=== PATIENT | female | born 1980 | race Caucasian/White ===

== ENCOUNTER 2019-12-18 15:27 | Outpatient (CLI) | payer OTHER, SELFPAY ==
--- NOTE | ~2019-12-18 | MM_ITS ---
EXAMINATION: MM scrn marlene implant BI w radha HISTORY: Screening mammogram TECHNIQUE: Craniocaudal and mediolateral oblique 3-D tomosynthesis images with implant displacement a nd synthetic 2-D images were generated. Craniocaudal and mediolateral oblique views of the breasts wi thout implant displacement were obtained using full field digital mammography. CAD analysis was submi tted and interpreted. COMPARISON: No prior mammogram is available for comparison at this institution. BREAST PARENCHYMAL COMPOSITION: There are scattered areas of fibroglandular density. FINDINGS: Status post bilateral augmentation mammoplasty. There is no evidence of suspicious mass, ca lcification, or architectural distortion to suggest malignancy in either breast. There has been no bauman spicious interval change. IMPRESSION: 1. No mammographic evidence of malignancy. 2. Recommend routine screening mammography in one year. BI-RADS Category 1: Negative Reviewed, dictated and finalized at location A. PENDENT CONSULTANT
== END 2019-12-18 15:28 | disposition home or self-care (01) ==
LOC: ANHIMG 15:35
PROVIDERS: PCP Internal Medicine; Visit Provider Obstetrics & Gynecology Gynecology
DX: Z12.31 Encounter for screening mammogram for malignant neoplasm of breast (principal)
CPT/HCPCS: 77063; 77067

== ENCOUNTER 2019-12-20 17:55 | Emergency (ER) | payer OTHER, SELFPAY ==
--- NOTE | ~2019-12-20 | XR_ITS ---
EXAMINATION: XR chest 2V EXAM DATE: 12/20/2019 19:23 INDICATION: Mid chest pain. TECHNIQUE: Frontal and lateral projections of the chest obtained and reviewed. Comparison is made to prior examination from 06/26/2017. FINDINGS: The lungs are clear. There are no pleural effusions. The cardiomediastinal silhouette is within normal limits. There is no pneumothorax suspected. The bones and soft tissues are unremarkab le. IMPRESSION: Normal chest x-ray exam. Reviewed, dictated and finalized at location A. E GYNECOLOGY IMPRESSION: Normal chest x-ray exam.
--- NOTE | 2019-12-20 18:21 | ECG_ITS ---
SINUS TACHYCARDIA LOW QRS VOLTAGE IN PRECORDIAL LEADS BORDERLINE ST-T WAVE ABNORMALITY- INF/LAT LEADS BASELINE ARTIFACT- I, II, III, AVR, AVL, AVF ABNORMAL ECG Electronically Signed On 12-21-2019 8:19:00 CDT by Gerard Reed D.O. NO PREVIOUS ECG AVAILABLE FOR COMPARISON [facility]
--- NOTE | 2019-12-20 18:24 | ED.CHESTPAIN ---
HPI - Chest Pain General Chief Complaint: Chest Pain Stated Complaint: chest pain Time Seen by Provider: 12/20/19 18:20 Source: patient Mode of arrival: ambulatory Limitations: no limitations History of Present Illness HPI narrative: The pt is a 39 y/o female who presents to the ED c/o left-sided CP onset today. Pt states that the pain began this morning when she awoke. She states that she was driving and noticed the pain began to radiate to the LUE, so she came here. She notes that her pain is relieved via laying down. Pt denies SOB. 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 Stephens. She notes that she was prescribed Cardizem following a back surgery due to tachycardia. MD complaint: chest pain Pain location: left chest Pain radiation: left arm Relieving factors: other (Laying down) Associated symptoms: other (None) Related Data Home Medications Medication Instructions Recorded Confirmed budesonide-formoterol [Symbicort] 2 puff INHALATION Q12H 12/20/19 diltiazem HCl 120 mg PO DAILY 12/20/19 Allergies Allergy/AdvReac Type Severity Reaction Status Date / Time codeine Allergy Unknown Unknown Verified 12/20/19 19:14 Review of Systems Review of Systems: All systems reviewed & are unremarkable except as noted in HPI and below Cardiovascular: Cardiovascular: Reports chest pain (Left-sided, radiates to the LUE) Respiratory: Respiratory: Denies dyspnea PMFSH Past Medical History Medical History (Updated 12/20/19 @ 22:36 by Alejandor Le DO) Asthma MVP (mitral valve prolapse) Tachycardia Urinary tract infection Surgical History Surgical History (Updated 12/20/19 @ 18:43 by Atul Castle) History of back surgery Family History Family History (Updated 08/22/18 @ 15:28 by DOCTOR UNKNOWN) Other Asthma Family history of cardiovascular disease Family history of malignant neoplasm Social History Social History (Updated 12/20/19 @ 18:44 by Atul Castle) Smoking status: Former smoker Smoking end date: 10/15/11 Alcohol intake: current Gender identity (if verbalized by the patient): Female Comments PCP: Dr. Chavarria Financial Planning Consultant: Dr. Stephens Exam Narrative: Exam Narrative: APPEARANCE: No acute distress, nontoxic, resting in bed EYES: EOMI HEENT: Normocephalic, atraumatic, OMM RESPIRATORY: No respiratory distress Clear to auscultation bilaterally with no rhonchi wheezing or rales. CARDIOVASCULAR: Regular rate and rhythm without murmurs rubs or gallops. Chest: Tender palpation over the left anterior chest just to the left of the sternum and region of ribs 6 and 7 with point tenderness present, pain increased with deep inspiration and fly motion of the chest ABDOMINAL: Soft, nontender, nondistended, no rebound or guarding MUSCULOSKELETAl: Moves all extremities. No clubbing, cyanosis or edema. NEURO: Awake and alert. Following commands, speech normal, no focal deficits SKIN:: Warm, dry. No rashes lesions or abrasions PSYCHIATRIC: Normal affect/mood, Course Course Emergency Course: States pain is resolved with Toradol Discussed with Dr. Larsen presentation work-up. We discussed initial EKG and follow-up EKG with resolution of inferior depression. Feels that this is likely secondary to tachycardia feels with 2- troponins patient may be discharged follow-up as an outpatient Discussed with patient results of workup and diagnosis. Discussed need for follow-up with primary care, proper use of medication, and reasons to return to the emergency department. Patient understands and agrees to current treatment plan. Patient states that she was seen by her interactive web developer 1 month ago [place] and states she will follow-up. Vital Signs Vital signs: Vital Signs Temperature 98.1 F 12/20/19 18:50 Pulse Rate 96 12/20/19 18:50 Respiratory Rate 18 12/20/19 18:50 Blood Pressure 152/68 H 12/20/19 18:50 Pulse Oximetry 100 12/20/19 18:50 Temperature 98.1 F 12/20/19 18:50 Pulse Rat
[2019-12-20 18:50] VITALS: BP 152/68; PULSE 96; RESP 18; TEMP 36.7; O2SAT 100
[2019-12-20 18:54] VITALS: PULSE 84
[2019-12-20 19:03] LABS: Basophils Absolute Auto 0.1 K/mm3 (0.0-0.1); Basophils Percent Auto 0.8 % (0.2-1.2); Eosinophils Absolute Auto 0.2 K/mm3 (0-0.3); Eosinophils Percent Auto 2.9 % (0-4.4); Hematocrit 39.9 % (37.0-47.0); Hemoglobin 12.9 g/dL (12.0-15.0); Immature Granulocyte Absolute 0.04 K/mm3 (0.00-0.031); Immature Granulocyte Percent A 0.5 % (0-0.5); Lymphocytes Absolute Auto 1.86 K/mm3 (0.9-3.2); Lymphocytes Percent Auto 24.1 % (18.3-44.2); Mean Corpuscular HGB Conc 32.3 g/dl (32-36); Mean Corpuscular Hemoglobin 29.9 pg (26-34); Mean Corpuscular Volume 92.6 fl (80-100); Mean Platelet Volume 9.1 fl (7.4-10.4); Monocytes Absolute Auto 0.6 K/mm3 (0.1-0.6); Neutrophils Absolute Auto 4.9 K/mm3 (1.3-6.7); Neutrophils Percent Auto 63.7 % (45.5-73.1); Platelet Count Result 273 k/mm3 (150-375); Red Blood Count 4.31 M/mm3 (4.2-5.4); Red Cell Distribution Width 12.7 % (11.5-14.5); White Blood Count 7.7 K/mm3 (4.5-10.0)
[2019-12-20 19:12] LABS: Prothrombin Time 12.9 Seconds (11.1-14.7)
[2019-12-20 19:13] LABS: Partial Thromboplastin Time 28.1 SECONDS (22.3-36.8)
[2019-12-20 19:18] LABS: D Dimer 0.27 ug/mL (<0.48)
[2019-12-20 19:21] LABS: Blood Urea Nitrogen 20 mg/dL (7-17); Calcium 8.6 mg/dL (8.4-10.2); Carbon Dioxide 26 mmol/L (22-30); Chloride 104 mmol/L (98-107); Estimated CRCL calculation 88 ml/min; Estimated Glomerular Filt Rate > 60; Glucose 106 mg/dL (65-105); Sodium 137 mmol/L (137-145)
[2019-12-20 19:23] LABS: Troponin I < 0.012 ng/mL (0.000-0.034)
[2019-12-20 19:27] VITALS: BP 124/80; PULSE 81; RESP 20; O2SAT 100
[2019-12-20 20:24] VITALS: BP 113/62; PULSE 86; RESP 20; O2SAT 100
--- NOTE | 2019-12-20 21:02 | ECG_ITS ---
Measurements Intervals [place] Rate: 73 P: -23 [place]: 151 QRS: 35 QRSD: 85 T: 67 QT: 370 QTc: 409 Interpretive Statements SINUS RHYTHM BASELINE ARTIFACT- I, III, AVR, AVL, V1 NORMAL ECG Electronically Signed On 12-21-2019 8:26:32 CDT by Gerard Reed D.O.
[2019-12-20 21:16] VITALS: BP 108/64; PULSE 92; RESP 20; O2SAT 100
[2019-12-20 22:16] LABS: Troponin I < 0.012 ng/mL (0.000-0.034)
[2019-12-20 22:49] VITALS: BP 105/66; PULSE 90; RESP 20; O2SAT 100
== END 2019-12-20 22:50 | disposition home or self-care (01) ==
PROVIDERS: Emergency Provider Emergency Medicine; PCP Internal Medicine
DX: R07.89 Other chest pain (principal); R00.0 Tachycardia, unspecified; R94.31 Abnormal electrocardiogram [ECG] [EKG]; J45.909 Unspecified asthma, uncomplicated; I34.1 Nonrheumatic mitral (valve) prolapse; Z87.440 Personal history of urinary (tract) infections
CPT/HCPCS: 36415; 71046; 80048; 84484; 85025; 85380; 85610; 85730; 93005; 99284

== ENCOUNTER 2020-06-20 11:22 | Emergency (ER) | payer OTHER, SELFPAY ==
[2020-06-20 11:29] VITALS: BP 128/82; PULSE 107; RESP 18; TEMP 36.6; O2SAT 100
[2020-06-20 11:31] VITALS: BP 128/76; PULSE 91; RESP 18; TEMP 36.9; O2SAT 99
--- NOTE | 2020-06-20 11:36 | ED.ANIMALBIT ---
HPI - Animal Bite General Chief Complaint: Animal Bite Stated Complaint: dog bite to face Time Seen by Provider: 06/20/20 11:36 Source: patient Mode of arrival: ambulatory Limitations: no limitations History of Present Illness HPI narrative: Patient is a 39-year-old female who presented for evaluation of an animal bite to left eye. This happened approximately 6 hours ago. Patient states she was playing fetch with the dog, went to throw the ball when she thinks the dog mistaking it for taking the ball away and the dog bit her in the left eye. Patient denies any vision pain or vision loss. The dog belongs to a friend and she believes it is vaccinated but is not sure. It is a domestic dog. Patient is not up-to-date on her tetanus. Related Data Home Medications Medication Instructions Recorded Confirmed budesonide-formoterol [Symbicort] 2 puff INHALATION Q12H 12/20/19 metoprolol tartrate 06/20/20 Allergies Allergy/AdvReac Type Severity Reaction Status Date / Time codeine Allergy Unknown Unknown Verified 06/20/20 11:32 Review of Systems Review of Systems: Narrative: CONSTITUTIONAL: Denies fever CARDIOVASCULAR: Denies chest pain RESPIRATORY: Denies cough or dyspnea. GASTROINTESTINAL: Denies abdominal pain SKIN: Denies rash MUSCULOSKELETAL: Denies back pain NEUROLOGIC: Denies headache PMFSH Past Medical History Medical History Asthma MVP (mitral valve prolapse) Tachycardia Urinary tract infection Surgical History Surgical History History of back surgery Family History Family History (Updated 08/22/18 @ 15:28 by DOCTOR UNKNOWN) Other Asthma Family history of cardiovascular disease Family history of malignant neoplasm Social History Social History Smoking status: Former smoker Smoking end date: 10/15/11 Alcohol intake: current Gender identity (if verbalized by the patient): Female Exam Narrative: Exam Narrative: GENERAL: Awake, alert, conversant HEAD: Normocephalic EYES: PERRLA and EOMI. left inferior eye laceration approximately 1 cm, superficial, laceration to the lower eyelid, irregular border, no foreign body. No hyphema. It does not appear to violate the medial canthus. ENT: Nares clear, no rhinorrhea or epistaxis. Mucous membranes moist. 0.5 cm nasal bridge laceration. NECK: Supple. CHEST: No respiratory distress, breathing even and non labored HEART: Regular rate, sinus rhythm ABDOMEN:Non distended, non tender EXTREMITIES: Normal range of motion. No edema. SKIN: Warm, dry, no rash. NEURO:No focal deficits. Alert and oriented x3 Course Vital Signs Vital signs: Vital Signs Temperature 36.6 C 06/20/20 11:29 Pulse Rate 107 H 06/20/20 11:29 Respiratory Rate 18 06/20/20 11:29 Blood Pressure 128/82 06/20/20 11:29 Pulse Oximetry 100 06/20/20 11:29 Temperature 36.9 C 06/20/20 11:31 Pulse Rate 91 06/20/20 11:31 Respiratory Rate 18 06/20/20 11:31 Blood Pressure 128/76 06/20/20 11:31 Pulse Oximetry 99 06/20/20 11:31 Transfer Transfered to: [facility] Transportation: Other (POV) Transfer rationale: Specialty available Accepting physician: MD Sumit MDM - Animal Bite MDM Narrative Medical decision making narrative: Patient presenting for evaluation of left inferior eyelid laceration. At the time of assessment, ABCs are intact and vital signs are stable. The laceration is 1 cm, irregular in nature, very close to the medial canthus although I do not feel it violates the canthus. Patient does not seem to have a orbital wall injury based on assessment. Pt also with 0.5 cm superficial skin tear/laceration to the nasal bridge. No visual deficits. Given this is an animal bite, typically we do not usually close these but given location we are quite worried for cosmetic outcom
[2020-06-20] MEDS: TETANUS,DIPHTHERIA,AC PERTUSSIS ADULT (0.5 ML) BOOSTRIX IM (13:02)
[2020-06-20 13:30] VITALS: BP 122/78; PULSE 70; RESP 18; O2SAT 99
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
== END 2020-06-20 13:35 | disposition short-term general hospital (02) ==
PROVIDERS: Emergency Provider Emergency Medicine; PCP Internal Medicine
DX: S01.112A Laceration without foreign body of left eyelid and periocular area, initial encounter (principal); Z23 Encounter for immunization; Z87.891 Personal history of nicotine dependence; J45.909 Unspecified asthma, uncomplicated; I34.1 Nonrheumatic mitral (valve) prolapse; Z87.440 Personal history of urinary (tract) infections; W54.0XXA Bitten by dog, initial encounter
CPT/HCPCS: 90471; 90715; 99282

== ENCOUNTER 2020-12-21 15:50 | Outpatient (CLI) | payer OTHER, SELFPAY ==
--- NOTE | ~2020-12-21 | MM_ITS ---
EXAMINATION: MM scrn marlene implant BI w radha HISTORY: Screening mammogram TECHNIQUE: Craniocaudal and mediolateral oblique 3-D tomosynthesis images with implant displacement a nd synthetic 2-D images were generated. Craniocaudal and mediolateral oblique views of the breasts wi thout implant displacement were obtained using full field digital mammography. CAD analysis was submi tted and interpreted. COMPARISON: 12/18/2019, , 10/04/2016 bilateral implant digital screening mammogram examination s BREAST PARENCHYMAL COMPOSITION: The breasts are heterogeneously dense, which may obscure small masses . FINDINGS: Status post bilateral augmentation mammoplasty. There is no evidence of suspicious mass, ca lcification, or architectural distortion to suggest malignancy in either breast. There has been no bauman spicious interval change. IMPRESSION: 1. No mammographic evidence of malignancy. 2. Recommend routine screening mammography in one year. BI-RADS Category 1: Negative Reviewed, dictated and finalized at location A. RNED TELEPHONE EQUIPMENT APPRAISER
== END 2020-12-21 15:51 | disposition home or self-care (01) ==
LOC: ANHIMG 15:51
PROVIDERS: PCP Internal Medicine; Visit Provider Nurse Practitioner
DX: Z12.31 Encounter for screening mammogram for malignant neoplasm of breast (principal)
CPT/HCPCS: 77063; 77067

== ENCOUNTER 2022-01-04 15:48 | Outpatient (CLI) | payer OTHER, SELFPAY ==
--- NOTE | ~2022-01-04 | MM_ITS ---
EXAMINATION: MM scrn marlene implant BI w radha HISTORY: Screening mammogram TECHNIQUE: Craniocaudal and mediolateral oblique 3-D tomosynthesis images with implant displacement a nd synthetic 2-D images were generated. Craniocaudal and mediolateral oblique views of the breasts wi thout implant displacement were obtained using full field digital mammography. CAD analysis was submi tted and interpreted. COMPARISON: 12/21/2020, 12/18/2019, 11/20/2018 bilateral implant screening mammogram examinations BREAST PARENCHYMAL COMPOSITION: The breasts are heterogeneously dense, which may obscure small masses . FINDINGS: Status post bilateral augmentation mammoplasty in July 2021. There is no evidence of suspicious mass, calcification, or architectural distortion to suggest malign mariama in either breast. There has been no suspicious interval change. IMPRESSION: 1. No mammographic evidence of malignancy. 2. Recommend routine screening mammography in one year. BI-RADS Category 1: Negative Reviewed, dictated and finalized at location A.
== END 2022-01-04 15:49 | disposition home or self-care (01) ==
LOC: ANHIMG 15:50
PROVIDERS: PCP Internal Medicine; Visit Provider Nurse Practitioner
DX: Z12.31 Encounter for screening mammogram for malignant neoplasm of breast (principal)
CPT/HCPCS: 77063; 77067

== ENCOUNTER 2023-01-11 14:07 | Outpatient (CLI) | payer OTHER, SELFPAY ==
--- NOTE | ~2023-01-11 | MMUS_ITS ---
EXAMINATION: MM diag marlene implant BI w radha, US breast RT limited HISTORY: Palpable right breast lump TECHNIQUE: Additional 3-D tomosynthesis images of the breasts were performed and synthetic 2-D images were generated. CAD analysis was submitted and interpreted. High resolution Limited right breast ult rasound was performed. COMPARISON: Comparison to multiple prior studies sequentially, with oldest reviewed study dated 02/2020. BREAST PARENCHYMAL COMPOSITION: FINDINGS: MAMMOGRAPHIC FINDINGS: The breasts are stable. No suspicious masses, calcifications or architectural distortion to suggest m alignancy. There are bilateral subpectoral silicone implants. ULTRASOUND: Limited right breast ultrasound: At 9:00, 9 cm from the nipple in the area of palpable concern there is a benign-appearing 8 mm intramammary lymph node. No suspicious masses to suggest malignancy. IMPRESSION: 1. No evidence for malignancy in either breast. Benign finding. 2. Routine yearly screening mammogram and regular clinical breast examination are recommended. BI-RADS Category 2: Benign finding(s). Reviewed, dictated and finalized at location A. IMPRESSION: 1. No evidence for malignancy in either breast. Benign finding. 2. Routine yearly screening mammogram and regular clinical breast examination a re recommended. BI-RADS Category 2: Benign finding(s).
== END 2023-01-11 14:08 | disposition home or self-care (01) ==
PROVIDERS: PCP Internal Medicine; Visit Provider Obstetrics & Gynecology Gynecology
DX: N63.10 Unspecified lump in the right breast, unspecified quadrant (principal)
CPT/HCPCS: 76642; 77062; 77066; G0279

== ENCOUNTER 2023-04-09 09:19 | Emergency (ER) | payer OTHER, SELFPAY ==
--- NOTE | ~2023-04-09 | XR_ITS ---
EXAMINATION: XR toe 1st LT min 2V INDICATION: Left first toe pain TECHNIQUE: Three views of the left first toe are obtained. COMPARISON: None available FINDINGS: Bone alignment is normal. No displaced fracture is identified. The joint spaces are unremar kable. There is mild soft tissue swelling of the first toe. IMPRESSION: 1. No displaced fracture identified. If there is high clinical suspicion for fracture, follow-up radi ographs in 7-10 days are recommended to evaluate for productive changes of bony healing. Reviewed, dictated and finalized at location [] IMPRESSION: 1. No displaced fracture identified. If there is high clinical suspicion for fr acture, follow-up radiographs in 7-10 days are recommended to evaluate for prod uctive changes of bony healing.
--- NOTE | 2023-04-09 09:45 | ED.LOWEXIN ---
HPI - Extremity Injury (Lower) General Chief Complaint: Extremity Injury, Lower Stated Complaint: Lt foot injury Time Seen by Provider: 04/09/23 09:45 Source: patient Mode of arrival: ambulatory Limitations: no limitations History of Present Illness HPI Narrative: Patient is a 42-year-old female that presents with left great toe pain after dropping heavy wooden box on toe. Patient states to have been yesterday and started bleeding. Toe is no longer bleeding at this time. Patient has gel nail [place] on toe preventing visualization of nail. Patient states it hurts to put pressure and bend toe. Denies any numbness or tingling to toe Related Data Home Medications Medication Instructions Recorded Confirmed budesonide-formoterol HFA 160 2 puff inhalation Q12H 12/20/19 04/09/23 mcg-4.5 mcg/actuation aerosol inhaler (Symbicort) metoprolol tartrate 25 mg tablet 25 mg PO DAILY 06/20/20 Allergies Allergy/AdvReac Type Severity Reaction Status Date / Time codeine Allergy Unknown Unknown Verified 04/09/23 09:57 Review of Systems Review of Systems: All systems reviewed & are unremarkable except as noted in HPI and below Constitutional: Constitutional: Denies body ache(s), Denies chills, Denies fatigue, Denies fever(s), Denies headache(s), Denies malaise and Denies weakness Eyes: Eyes: Denies blurry vision, Denies irritation and Denies loss of vision ENT: Denies otalgia, Denies headache(s), Denies nasal discharge, Denies sinus pain and Denies sore throat Cardiovascular: Cardiovascular: Denies chest pain, Denies irregular heart rhythm and Denies dyspnea Respiratory: Respiratory: Denies dyspnea Gastrointestinal: Gastrointestinal: Denies abdominal pain, Denies melena, Denies hematochezia, Denies diarrhea, Denies nausea and Denies vomiting Musculoskeletal: Musculoskeletal: Denies back pain, Denies myalgias and Reports arthralgias (left great toe) Integumentary/Breasts: Skin/Breast: Denies pruritus and Denies rash Neurologic: Denies headache(s), Denies loss of vision and Denies weakness Psychiatric: Psychiatric: Reports no additional psychiatric complaints Endocrine: Endocrine: Denies fatigue PMFSH Past Medical History Medical History (Updated 04/09/23 @ 10:35 by Sandhya Wan APRN) Asthma MVP (mitral valve prolapse) Tachycardia Urinary tract infection Surgical History Surgical History History of back surgery Family History Family History (Updated 08/22/18 @ 15:28 by DOCTOR UNKNOWN) Other Asthma Family history of cardiovascular disease Family history of malignant neoplasm Social History Social History Smoking status: Former smoker Smoking end date: 10/15/11 Alcohol intake: current Gender identity (if verbalized by the patient): Female Comments At time of signature, agree with nursing past medical, surgical, social and family history. There is no relevant family history pertinent to the presenting complaint. Exam Const: General: cooperative, healthy appearing, comfortable, no acute distress and well nourished Nutritional Appearance: well nourished Orientation/consciousness: patient oriented x3 Limitations: no limitations HENMT: Head: normal to inspection, normocephalic and atraumatic Ears: hearing grossly normal bilaterally and external ears normal Face/Nose/Sinus: Normal external nose present, normal facial exam and face symmetric Face and sinus: normal facial exam and face symmetric Mouth: Yes lip normal Eyes: General: appearance normal, both eyes and all related structures Alignment and Position: alignment normal and position normal Periorbital: periorbital findings normal Eyelids: eyelids normal Pupils: Equal, round and reactive pupils present EOM: EOMs intact bilaterally Neck: Neck: normal visual inspection, full ROM and supple Chest: Chest palpation & ins
[2023-04-09 09:50] VITALS: BP 110/62; PULSE 68; RESP 18; TEMP 36.6; O2SAT 100
== END 2023-04-09 10:42 | disposition home or self-care (01) ==
PROVIDERS: Emergency Provider Nurse Practitioner Family; PCP Internal Medicine
DX: S90.212A Contusion of left great toe with damage to nail, initial encounter (principal); W20.8XXA Other cause of strike by thrown, projected or falling object, initial encounter; Z87.891 Personal history of nicotine dependence; J45.909 Unspecified asthma, uncomplicated; I34.1 Nonrheumatic mitral (valve) prolapse
CPT/HCPCS: 73660; 99213; G0463

== ENCOUNTER 2023-12-21 08:31 | Outpatient (CLI) | payer OTHER, SELFPAY ==
--- NOTE | ~2023-12-21 | MM_ITS ---
EXAMINATION: MM scrn marlene implant BI w radha HISTORY: Screening mammogram TECHNIQUE: Craniocaudal and mediolateral oblique 3-D tomosynthesis images with implant displacement a nd synthetic 2-D images were generated. Craniocaudal and mediolateral oblique views of the breasts wi thout implant displacement were obtained using full field digital mammography. CAD analysis was submi tted and interpreted. COMPARISON: 01/11/2023 diagnostic bilateral implant mammogram, Limited right breast ultrasound 01/04/2022 bilateral implant screening mammogram BREAST PARENCHYMAL COMPOSITION: The breasts are heterogeneously dense, which may obscure small masses . FINDINGS: Status post bilateral augmentation mammoplasty There is no evidence of suspicious mass, camryn cification, or architectural distortion to suggest malignancy in either breast. There has been no pallavi picious interval change. IMPRESSION: 1. No mammographic evidence of malignancy. 2. Recommend routine screening mammography in one year. BI-RADS Category 1: Negative Reviewed, dictated and finalized at location A. AT CONTROL
== END 2023-12-21 08:32 | disposition home or self-care (01) ==
LOC: ANHIMG 08:33
PROVIDERS: PCP Internal Medicine; Visit Provider Obstetrics & Gynecology Gynecology
DX: Z12.31 Encounter for screening mammogram for malignant neoplasm of breast (principal)
CPT/HCPCS: 77063; 77067

== ENCOUNTER 2024-04-03 13:45 | Emergency (ER) | payer OTHER, SELFPAY ==
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
[2024-04-03 15:05] VITALS: BP 119/63; PULSE 86; RESP 18; TEMP 36.6; O2SAT 100
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
== END 2024-04-03 17:46 | disposition home or self-care (01) ==
PROVIDERS: Emergency Provider Physician Assistant; PCP Internal Medicine
DX: S39.92XA Unspecified injury of lower back, initial encounter (principal); J45.909 Unspecified asthma, uncomplicated; I34.1 Nonrheumatic mitral (valve) prolapse; Z87.440 Personal history of urinary (tract) infections; Z87.891 Personal history of nicotine dependence; M47.812 Spondylosis without myelopathy or radiculopathy, cervical region; M47.814 Spondylosis without myelopathy or radiculopathy, thoracic region; M47.816 Spondylosis without myelopathy or radiculopathy, lumbar region; V49.40XA Driver injured in collision with unspecified motor vehicles in traffic accident, initial encounter
CPT/HCPCS: 72125; 72128; 72131; 81025; 99284

== ENCOUNTER 2024-11-15 08:49 | Emergency (ER) | payer OTHER, SELFPAY ==
--- OUTSIDE RECORDS SUMMARY | 2024-11-15 08:51 | XMS_ITS | Encounter Summary ---
Author Organization [facility] Address [address] [facility] [address] [place] [address] Phone Care Team Providers Care Rehabilitation Case Coordinator Name Role Phone Pola Chavarria MD Primary Care Provider [phone] Encounter Details Date Type Department Care Team (Latest Contact Info) Description 11/05/2019 Orders Only [facility] Soledad Burton RN Social History Tobacco Use Types Packs/Day Years Used Date Smoking Tobacco: Never Assessed Comments Unknown Sex and Gender Information Value Date Recorded Sex Assigned at Not on file 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 Gender Identity Not on file Sexual Orientation Not on file documented as of this encounter Plan of Treatment Not on file documented as of this encounter Procedures Procedure Name Priority Date/Time Associated Diagnosis Comments CARDIOLOGY DOCUMENT SCAN 11/05/2019 documented in this encounter Results * Cardiology Document Scan (11/05/2019) Anatomical Region Laterality Modality Other us Soledad Burton RN CV CARDIAC SERVICES P ROCEDURES Final Result documented in this encounter Visit Diagnoses Not on filedocumented in this encounter Care Teams Rehabilitation Case Coordinator Relationship Specialty Start Date End Date Pola Chavarria MD [address] [place] [address] PCP - General Internal Medicine 11/10/24 documented as of this encounter
--- OUTSIDE RECORDS SUMMARY | 2024-11-15 08:51 | XMS_ITS | Data Portability ---
Author Organization [facility], [address] [place] [address] ([place]) Address [address] [address] Assessment Encounter Date Assessment Date Assessment LastModified by Organization Details LastModified Time 06/13/2024 06/13/2024 Angioma: Discussed etiology. Patient is aware this is a benign finding. Discussed treatment options such as cautery, surgical removal, or laser. Patient declined. Seborrheic Keratosis: Discussed etiology with the patient. Patient is aware that this is a benign finding. We discussed treatment options. Patient opted to treat with liquid nitrogen. Patient is aware that the area treated could get red, blister, scab, scar, recur, or need further treatment. Patient also warned about possible hypopigmentation . One inflamed lesion treated. Patient tolerated the procedure. Wound care discussed. Follow-up discussed. Encouraged patient to perform frequent skin checks at home and watch for any new or changing lesions. Reminded to use sun protective measures such as SPF 30 or higher sunscreen and a wide brimmed hat. Discussed the ABCDEs of melanomas and how moles differ from SKs. f/u as needed. Patient verbalized understanding and agrees with plan. Portions of this note were documented using [employer] voice recognition technology. If any part of the note appears inaccurate, please contact the author for correction and clarification. [email or web address] Not available 06/13/2024 12:20:21 Plan of Treatment Reminders Order Date Submit Date Provider Last Modified By Organization Details Last Modified Time Details Appointments None record ed. Lab None record ed. Referral None record ed. Procedures None record ed. Surgeries None record ed. Imaging None record ed. Medication Orders None record ed. Patient TargetsNo targets recorded. Patient InstructionsNo instructions recorded. Reason for Referral None Reported. Problems Name Problem SNOMED Code Status Onset Date Resolution Date Notes Provider Name and Address Organization Details Recorded Time Seborrheic keratosis 471115298 Active 024 Anni Milligan APRN, GATE OPERATOR [address] [place] [address], [phone], [facility] 4 12:19:32 Hemangioma 763887176 Active 024 Anni Milligan APRN, GATE OPERATOR [address] [place] [address], [phone], [facility] 4 12:19:34 Problem Notes None recorded. Medical Equipment None Reported. Allergies No known drug allergies Medications Name Sig Start Date Stop Date Status Note LastModified by Organization Details LastModified Time cyclobenzap rine 10 mg tablet TAKE 1 TABLET BY MOUTH THREE TIMES DAILY NEEDED FOR MUSCLE SPASM 06/13 completed Not Available Not Available Not Available azithromyci n 250 mg tablet TAKE 2 TABLETS BY MOUTH DAILY FOR 1 DAY THEN TAKE 1 TABLET BY MOUTH DAILY FOR 4 DAYS 06/13 completed Not Available Not Available Not Available hydrocodone 5 mg-acetamin ophen 325 mg tablet TAKE 1 TABLET BY MOUTH EVERY 4 HOURS NEEDED FOR PAIN 06/13 completed Not Available Not Available Not Available acyclovir 400 mg tablet TAKE 1 TABLET BY MOUTH TWICE DAILY 06/13 completed Not Available Not Available Not Available valacyclovi r 500 mg tablet TAKE 1 TABLET BY MOUTH EVERY DAY 06/13 completed Not Available Not Available Not Available sulfamethox azole 800 mg-trimetho prim 160 mg tablet TAKE 1 TABLET BY MOUTH TWICE DAILY STARTING AN HOUR BEFORE SURGERY 06/13 completed Not Available Not Available Not Available clindamycin 2 % vaginal cream INSERT 1 APPLICATO RFUL VAGINALLY DAILY AT BEDTIME FOR 5 DAYS 06/13 completed Not Available Not Available Not Available ondansetron 4 mg disintegrat ing tablet DISSOLVE 1 TABLET BY MOUTH EVERY 6 HOURS NEEDED FOR NAUSEA AND VOMITING 06/13 completed Not Available Not Available Not Available diazepam 5 mg tablet TAKE 1 TABLET BY MOUTH EVERY 8 TO 12 HOURS NEEDED. TAKE FIRST DOSE 30 MINUTES BEFORE PROCEDURE 06/13 completed Not Available Not Available Not Available metoprolol tartrate 25 mg tablet TAKE 1 TABLET BY MOUTH TWICE DAILY active Not Available Not Available No t Available Symbicort 160 mcg-4.5 mcg/actuati on HFA aerosol inhaler INHALE 2 PUFFS BY MOUTH TWICE DAILY active Not Available Not Available No t Available Vitals Date Recorded Body height Body mass index (BMI) Body weight Provider Name and Address Organization Details Last Updated DateTime 06/13/2024 175.26 cm 19.5 kg/m2 09895.19 g [facility] 06/13/2024 12:05:29 Social History Question Answer Notes LastModified by Organizat ion Details LastModified Time Tobacco Smoking Status Former Smoker Not Available Health Note 06/06/2024 12:27:49 Do You Have An Advance Directive? No [email or web address] Information not available 06/06/2024 What Is Your Level Of Alcohol Consumption? Occasional [email or web address] Information not available 06/06/2024 How Many Times Per Week Do You Consume Alcohol? Less Than 1 Time Per Week [email or web address] Information not available 06/06/2024 What Is Your Level Of Caffeine Consumption? Occasional [email or web address] Information not available 06/06/2024 Are You Currently Employed? 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 5-7 Times Per Week [email or web address] Information not available 06/06/2024 E-cigarettes Or Vaporization Device? Uses Nicotine Containing Device [email or web address] Information not available 06/06/2024 When Did You Quit Smoking? 2010 [email or web address] Information not available 06/06/2024 Do You Have A Medical Power Of Technology Administrator? Yes [email or web address] Information not available 06/06/2024 What Was The Date Of Your Most Recent Tobacco Screening? 06/13/2024 [email or web address] Information not available 06/06/2024 What Is Your Relationship Status? Single [email or web address] Information not available 06/06/2024 Do You Use Any Illicit Or Recreational Drugs? No [email or web address] Information not available 06/06/2024 Do You Use Sunscreen Routinely? Yes Always Uses Sunscreen, Declines Tanning Bed Use [email or web address] Information not available 06/13/2024 Sex: Unknown Functional Status Question Answer Note LastModified by Organization D etails LastModified Time What is your exercise level? Heavy [email or web address] Information not available 06/06/2024 Mental Status None recorded. Family History Relationship Description Onset Age of this Age Resolved Age Notes LastModified by Organization Details LastModified Time Father No current problems or disability [email or web address] Not available 06/06 12:27:48 Mother No current problems or disability [email or web address] Not available 06/06 12:27:48 Notes:denies family hx of sk in cancer Medical History Condition Response Anxiety Disorder N Diabetes N Bleeding Disorder N Attention-deficit Hyperactivity Disorder N High Blood Pressure N Arthritis N Hyperlipidemia N Cancer N Thyroid Problems N Stroke N COPD N Depression N Asthma Y Skin Problems Seizures N Anemia N Heart Disease N Fibromyalgia N Osteoporosis N Kidney Disease N Gynecological HistoryNo gynecological history recorded. Obstetrics History GPAL:G 0 P 0 0 0 0 Past Encounters Encounter ID Performer Location Encounter Start Date Encounter Closed Date Diagnosis/Indication Diagnosis SNOMED-CT Code Diagnosis ICD10 Code Diagnosis Note [id number] Anni Milligan APRN, GATE OPERATOR [facility] ([place]) [address] [place] [phone] 06/13/2024 11:49:31 06/13/2024 12:15:27 Seborrheic keratosis 284170211 L82.1 Hemangioma 158430443 D18 .00 Health Concerns Section Related Observation LastModified by Organization Detai ls LastModified Time None Recorded Concern Status LastModified by Organization Details LastModified Time None Recorded Advance Directives Directive N: Payers Encounter Date Sequence Insurance Name Policy Number Policy Canales Covered Member ID Canales Member ID Guarantor Name 06/13/2024 1 [facility] (MEDICAID HMO) [id number] Aruna Villagran [id number] Aruna Villagran Notes Date Note Type Note Provider Name and Address Organization Details Recorded Time 06/13/2024 text/html 43-year-old female with an itchy bump on her right thigh. She also has a red bump on her hip. Patient reports no personal history of skin cancer. Patient reports no known family history of skin cancer. Offered full body skin check during today's visit. Patient declined. Patient stated they would only like the areas of concern checked today. Anni Milligan APRN, GATE OPERATOR [address] [place] [address], [phone], [place] [facility] 06/13/2024 14:20:28 OBGyn Episode No OBEpisode recorded.
--- OUTSIDE RECORDS SUMMARY | 2024-11-15 08:51 | XMS_ITS | Clinical Summary ---
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
--- OUTSIDE RECORDS SUMMARY | 2024-11-15 08:51 | XMS_ITS | Encounter Summary ---
Author Organization [facility] Address [address] [facility] [address] [place] [address] Phone Care Team Providers Care Roof Painter Name Role Phone Pola Chavarria MD Primary Care Provider [phone] Encounter Details Date Type Department Care Team (Latest Contact Info) Description 05/30/2021 Orders Only [facility] Soledad Burton RN Social History Tobacco Use Types Packs/Day Years Used Date Smoking Tobacco: Never Assessed Comments Unknown Sex and Gender Information Value Date Recorded Sex Assigned at Not on file 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 Gender Identity Not on file Sexual Orientation Not on file documented as of this encounter Plan of Treatment Not on file documented as of this encounter Procedures Procedure Name Priority Date/Time Associated Diagnosis Comments CARDIOLOGY DOCUMENT SCAN 05/30/2021 documented in this encounter Results * Cardiology Document Scan (05/30/2021) Anatomical Region Laterality Modality Other us Soledad Burton RN CV CARDIAC SERVICES P ROCEDURES Final Result documented in this encounter Visit Diagnoses Not on filedocumented in this encounter Care Teams Roof Painter Relationship Specialty Start Date End Date Pola Chavarria MD [address] [place] [address] PCP - General Internal Medicine 11/10/24 documented as of this encounter
--- OUTSIDE RECORDS SUMMARY | 2024-11-15 08:51 | XMS_ITS | Referral Summary ---
Author Organization [facility] Address [address] [place] [address] Care Team Providers Care Grooming Assistant Name Role Phone Pola Chavarria MD Primary Care Provider Encounters Date Type Department Care Team Description 11/14/2024 8:30 AM COUPON AND BOND COLLECTION CLERK Office Visit [facility] Cardiology [address] [facility] [address] [place] [phone] Dona Ferguson NP Rapid heart beat (Primary Dx) 11/12/2024 7:25 PM COUPON AND BOND COLLECTION CLERK - 11/12/2024 11:59 PM COUPON AND BOND COLLECTION CLERK Hospital Encounter [facility] [address] [place] [phone] Arrived Discharge Disposition: Discharge to home or self care 11/10/2024 Telephone [facility] Cardiology [address] [place] [address] for Advanced Medicine 8[address] [place] [address] [place] [address] Melita Hilario from Last 3 Months Allergies Active Allergy Reactions Criticality Noted Date Comments Codeine Itching,Rash Medium 10/28/2016 Medications acyclovir (ZOVIRAX) 400 mg tablet Take 1 tablet (400 mg total) by mouth 2 (two) times a day 4 Active albuterol HFA (PROVENTIL HFA,VENTOLIN HFA,PROAIR HFA) 90 mcg/actuation inhaler Inhale 2 puffs every 4 (four) hours Active budesonide-form oteroL (SYMBICORT) 160-4.5 mcg/actuation inhaler Inhale 2 puffs 2 (two) times a day 3 Active busPIRone (BUSPAR) 5 mg tablet Take 1 tablet (5 mg total) by mouth 2 (two) times a day 5 Active metoprolol tartrate (LOPRESSOR) 25 mg immediate release tablet Take 1 tablet (25 mg total) by mouth 2 (two) times a day 180 tablet 3 5 Active metoprolol tartrate (LOPRESSOR) 25 mg immediate release tablet Take 1 tablet (25 mg total) by mouth 2 (two) times a day 11/14/19 25 Discontinu ed(Reorder ) Active Problems No known active problems Social History Tobacco Use Types Packs/Day Years Used Date Smoking Tobacco: Every Day E-cigarettes Smokeless Tobacco: Never Tobacco Cessation:Ready to Q uit: Not Asked; Counseling Given: Not Answered Comments Unknown Sex and Gender Information Value Date Recorded Sex Assigned at Not on file Legal Sex Female 3:30 AM COUPON AND BOND COLLECTION CLERK Gender Identity Not on file Sexual Orientation Not on file Last Filed Vital Signs Vital Sign Reading Time Taken Comments Blood Pressure 114/80 11/14/2024 8:34 AM COUPON AND BOND COLLECTION CLERK Pulse 96 11/14/2024 8:34 AM COUPON AND BOND COLLECTION CLERK Temperature - - Respiratory Rate 18 11/14/2024 8:34 AM COUPON AND BOND COLLECTION CLERK Oxygen Saturation 96% 11/14/2024 8:34 AM COUPON AND BOND COLLECTION CLERK Inhaled Oxygen Concentration - - Weight 62 kg (136 lb 9.6 oz) 11/14/2024 8:34 AM COUPON AND BOND COLLECTION CLERK Height 175.3 cm (5' 9 ) 11/14/2024 8:34 AM COUPON AND BOND COLLECTION CLERK Body Mass Index 20.17 11/14/2024 8:34 AM COUPON AND BOND COLLECTION CLERK Plan of Treatment Not on file Procedures Procedure Name Priority Date/Time Associated Diagnosis Comments ECG 12-LEAD Routine 11/14/2024 8:34 AM COUPON AND BOND COLLECTION CLERK Rapid heart beat US TRANSFER OF OUTSIDE FILMS Routine 11/12/2024 7:25 PM COUPON AND BOND COLLECTION CLERK from Last 3 Months Results * ECG 12 lead (11/14/2024 8:34 AM COUPON AND BOND COLLECTION CLERK) us Dona Ferguson NP ECG ORDERABLES Edited Result - Final * US Outside Reference (11/12/2024 7:25 PM COUPON AND BOND COLLECTION CLERK) Impressions [facility] - 11/12/2024 7:25 PM COUPON AND BOND COLLECTION CLERK These images are for Reference purposes only and have not been reviewed by [facility] Radiology. ??There will be no report generated by a [facility] Radiologist. Narrative [facility] - 11/12/2024 7:25 PM COUPON AND BOND COLLECTION CLERK EXAMINATION: ??Images For Reference Purposes Only us Kris Braun MD IMG US PROCEDURES Final Resu lt [facility] from Last 3 Months Insurance [facility] Care Teams Grooming Assistant Relationship Specialty Start Date End Date Pola Chavarria MD [address] [place] [address] PCP - General Internal Medicine 11/10/24
--- OUTSIDE RECORDS SUMMARY | 2024-11-15 08:51 | XMS_ITS | Encounter Summary ---
Author Organization 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 Gender Identity Not on file Sexual Orientation Not on file documented as of this encounter Plan of Treatment Not on file documented as of this encounter Procedures Procedure Name Priority Date/Time Associated Diagnosis Comments CARDIOLOGY DOCUMENT SCAN 07/05/2022 documented in this encounter Results * Cardiology Document Scan (07/05/2022) Anatomical Region Laterality Modality Other us Soledad Burton RN CV CARDIAC SERVICES P ROCEDURES Final Result documented in this encounter Visit Diagnoses Not on filedocumented in this encounter Care Teams Assistant Professor Of Anthropology Relationship Specialty Start Date End Date Pola Chavarria MD [address] [place] [address] PCP - General Internal Medicine 11/10/24 documented as of this encounter
--- OUTSIDE RECORDS SUMMARY | 2024-11-15 08:51 | XMS_ITS | Encounter Summary ---
Author Organization [facility] Address [address] [place] [address] Phone Care Team Providers Care Engineering Research Manager Name Role Phone Pola Chavarria MD Primary Care Provider [phone] Encounter Details Date Type Department Care Team (Late st Contact Info) Description 11/10/2024 Telephone [facility] Cardiology [address] [facility] Advanced Medicine 8th [place] [address] [place] [address] Melita Hilario Social History Tobacco Use Types Packs/Day Years Used Date Smoking Tobacco: Never Assessed Comments Unknown Sex and Gender Information Value Date Recorded Sex Assigned at Not on file Legal Sex Female 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 Sent request for lab work over to the PCP office. TRUCTION CRAFT LABORER * Telephone Encounter - Suri Ferrer - 11/11/2024 3:24 PM CST Sent record and imaging request to [facility] at [phone]. TRUCTION CRAFT LABORER * Telephone Encounter - Melita Hilario - 11/10/2024 3:59 PM CST Diagnosis/Reason for Appointment: PT TAKING METOPROLOL HIGH HR ESTABLISH CARE Referring Physician: [facility] Ref Ph: If Referring MD is not PCP, list specialty: Triage Questions Yes No Who/Where/When/Notes Have you ever been diagnosed with cancer, or undergone cancer treatments? [] [x] If 'Yes', Schedulefirst available with Cardio-Oncology If yes where were you treated? Have you ever seen a Director Of Premium Seat Sales in an office setting? [x] [] [facility] MUSIC SALESPERSON PT WAS SEEN TWO YEARS AGO PT DOES NOT REMEMBER [phone] NO LONGER ACCEPTING INSURANCE COVERAGE IF SCHEDULING PATIENT WITH MATERNAL Have you had a baby in the last year or are you ? (If yes send to Dr. Gallegos for review) [] [] Have you had heart or blood pressure problems during a previous ? (If yes send to Dr. Gallegos for review) [] [] Dr. Ana Umanzor Patients only: Are you a hemodialysis or peritoneal dialysis patient? (If yes then patient must be referred from another MD, DO NOT SCHEDULE) [] [] Do you regularly exercise, or play any competitive or recreational sports? (If yes proceed to next question) [x] [] PT DOES GO TO THE GYM 5 DAYS A WEEK Are your symptoms or concerns associated with this exercise or activity? (If yes schedule in [facility]) [] [] Patient History Questions Yes No Where/When/Notes Have you EVER been hospitalized for ANY cardiac issue? [] [x] Have you ever had any cardiac testing, imaging, or procedures? (Testing - echo, EKG, stress) (Imaging - Cardiac MRI, CT or calcium scoring) (Procedure - Ablation, Cardioversion, CABG, Cath) [x] [] [facility] ECHO EKG STRESS TEST HEART MONITOR Have you ever had a sleep study? [] [x] Do you have a device? If yes what type? (Pacemaker, Defibrillator, Implanted Loop Recorder) [] [x] If yes, where and when was device put in? Business Services Administrator? ([employer], [employer], [employer]) Appointment Date: 11/14/24 Provider: DIONY Location: [facility] [x] Confirm appt date, time, provider and location. [x] Advise pt to arrive 15- 20 min early. [x] Advise patient to bring medications/list, photo ID and insurance card [] Advise of New Patient Packet being mailed to them. TRUCTION CRAFT LABORER documented in this encounter Plan of Treatment Not on file documented as of this encounter Visit Diagnoses Not on filedocumented in this encounter Care Teams Engineering Research Manager Relationship Specialty Start Date End Date Pola Chavarria MD [address] [place] [address] PCP - General Internal Medicine 11/10/24 documented as of this encounter
--- OUTSIDE RECORDS SUMMARY | 2024-11-15 08:51 | XMS_ITS | Encounter Summary ---
Author Organization [facility] Address [address] [place] [address] Phone Care Team Providers Care Computer Technologist Name Role Phone Pola Chavarria MD Primary Care Provider + [phone] Reason for Referral * Cardiology (Routine) - Authorized Specialty Diagnoses / Procedures Referred By Contac t Referred To Contact Diagnoses Rapid heart beat Procedures ECG 12 lead Dona Ferguson NP [address] [place] [address] Phone: tel: fax: [facility] (All Locations) Referral ID Status Reason Start Date Expiration Date V isits Requested Visits Authorized [id number] Authorized 11/14/2024 12/14/2025 1 1 UNTING TEACHER Encounter Details Date Type Department Care Team (Late st Contact Info) Description 11/14/2024 8:30 AM ACCOUNTING TEACHER Office Visit [facility] Cardiology [facility] Building [address] [place] [address] Dona Ferguson NP [address] [place] [address] Rapid heart beat (Primary Dx) Social History Tobacco Use Types Packs/Day Years Used Date Smoking Tobacco: Every Day E-cigarettes Smokeless Tobacco: Never Tobacco Cessation:Ready to Q uit: Not Asked; Counseling Given: Not Answered Comments Unknown Sex and Gender Information Value Date Recorded Sex Assigned at Not on file Legal Sex Female 3:30 AM ACCOUNTING TEACHER Gender Identity Not on file Sexual Orientation Not on file documented as of this encounter Last Filed Vital Signs Vital Sign Reading Time Taken Comments Blood Pressure 114/80 11/14/2024 8:34 AM ACCOUNTING TEACHER Pulse 96 11/14/2024 8:34 AM ACCOUNTING TEACHER Temperature - - Respiratory Rate 18 11/14/2024 8:34 AM ACCOUNTING TEACHER Oxygen Saturation 96% 11/14/2024 8:34 AM ACCOUNTING TEACHER Inhaled Oxygen Concentration - - Weight 62 kg (136 lb 9.6 oz) 11/14/2024 8:34 AM ACCOUNTING TEACHER Height 175.3 cm (5' 9 ) 11/14/2024 8:34 AM ACCOUNTING TEACHER Body Mass Index 20.17 11/14/2024 8:34 AM ACCOUNTING TEACHER documented in this encounter Ordered Prescriptions Prescription Sig Dispense Quantity Refills Last Filled Start Date End Date metoprolol tartrate (LOPRESSOR) 25 mg immediate release tablet Take 1 tablet (25 mg total) by mouth 2 (two) times a day 180 tablet 3 11/14/2024 documented in this encounter Progress Notes * Dona Ferguson, ASHLEY - 11/14/2024 8:30 AM CST Images from the original note were not included. CARDIOLOGY NEW PATIENT OFFICE VISIT Primary care Physician Pola Chavarria MD [facility] [address] Patient Name: Aruna Villagran Date of : 1980 Date of Visit: 11/14/2024 PRINCIPAL AND SECONDARY DIAGNOSES: Asthma Anxiety Spinal fusion 2019 x3 Cervical dsic replacement History of breast augmentation Aruna Villagran is a 44 y.o. female who presents today at the [facility] at [facility] in [place] for palpitations. Previously followed with [facility] a transitioning to [facility] due to change in insurance coverage. She was evaluated in 2020 for chest discomfort and palpitations. History of breast augmentation with complications requiring repeat surgery x4. Chest discomfort was attributed to musculoskeletal etiology. front desk monitor demonstrated SR, average HR 75 bpm, rare ectopy with <1% PAC and PVC burden, no sustained arrhythmias, 0% AF burden. Echocardiogram was reportedly completed, but results are not available at this time. She was started on beta-carmelita therapy for palpitations with symptomatic benefit. She presents today unattended. From a cardiovascular standpoint she feels well. Palpitations are well-controlled on metoprolol 25 mg BID. She reports intermittent left-sided chest cramping/aching which is nonexertional and can last for several hours to days. Discomfort does not limit her activity and is often exacerbated by deep breathing. She enjoys going to the gym 5 days weekly where she ridesa stationary bicycle and light weightlifting. Exercise does not reproduce or exacerbate chest discomfort. 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 Shifts are typically 8+ hours. She often experiences left lower extremity swelling at the end of her shift or following long car rides which is improved with compression socks and elevation of her legs. Prior lower extremity Doppler reportedly unremarkable. She denies exertional dyspnea, lightheadedness, dizziness, presyncope, syncope, orthopnea, or PND. Prior tobacco use, now vaping daily. Reports social alcohol use once monthly. Denies illicit drug use. Regarding her family history, father CVA age 75. Mother thyroid issues, details unknown. She has 2 children. No complications with pregnancies. LABORATORY/DIAGNOSTICS: No recent lab work for review. CURRENT MEDICATIONS: Current Outpatient Medications: acyclovir (ZOVIRAX) 400 mg tablet albuterol HFA (PROVENTIL HFA,VENTOLIN HFA,PROAIR HFA) 90 mcg/actuation inhaler budesonide-formoteroL (SYMBICORT) 160-4.5 mcg/actuation inhaler busPIRone (BUSPAR) 5 mg tablet metoprolol tartrate (LOPRESSOR) 25 mg immediate release tablet PHYSICAL EXAMINATION: Vitals: 11/14/24 0834 BP: 114/80 BP Location: Right arm Patient Position: Sitting Pulse: 96 Resp: 18 SpO2: 96% Weight: 62 kg (136 lb 9.6 oz) Height: 175.3 cm (5' 9 ) Body mass index is 20.17 kg/m??. General: Alert and oriented, well-nourished, in no acute distress. HEENT: Mucous membranes are moist. Sclerae white. No thyromegaly or lymphadenopathy. Lungs: Normal effort and respiratory rate. Lungs clear to auscultation bilaterally. Heart: Normal rate, regular rhythm. No murmurs, rubs, or gallops. Abdomen: Soft, non-tender, and non-distended. No hepatosplenomegaly. Neurologic/Psych: Alert and oriented x4. Calm and appropriate affect. Grossly normal bilateral motor function and sensation. Vascular: Extremities warm and well-perfused. All pulses intact. No edema. No carotid bruit. No JVD. Skin: No cyanosis, pallor, clubbing, or rashes. CARDIAC STUDIES: [facility] 05/2021. EKG 11/14/2024 Sinus Rhythm, ventricular rate 85 bpm, nonspecific TWA - no significant change EKG 06/2022 IMPRESSION AND PLAN: Palpitations Longstanding history of palpitations well-controlled on metoprolol tartrate 25 mg BID. We discussedpotential triggers for palpitations including electrolyte and thyroid abnormalities, dehydration, stress, anxiety, poor sleeping patterns and OCTAVIANO, alcohol, caffeine, etc. Encouraged her to journal palpitations to identify any particular triggers. Prior conveyor monitor unrevealing. Will request prior TTE results. Reports recent lab work completed by PCP, will request results for review. Chest discomfort Reports longstanding history of chest discomfort following breast augmentation. Chest discomfort islargely atypical for angina. Discomfort is unrelated and unchanged with strenuous exercise and exacerbated by position and deep breathing. We will plan to see her back in 6 months, however we would be happy to see her sooner if needed. JANY Bashir 11/14/2024 CC: Pola Chavarria MD [address] [facility] [address] This note was dictated with voice-recognition software, programs assistant errors may be present. UNTING TEACHER * Suri Ferrer - 11/14/2024 8:30 AM CST Yes, I sent a request on 11/11 wait will touch base later today. UNTING TEACHER documented in this encounter Plan of Treatment Not on file documented as of this encounter Procedures Procedure Name Priority Date/Time Associated Diagnosis Comments ECG 12-LEAD Routine 11/14/2024 8:34 AM ACCOUNTING TEACHER Rapid heart beat documented in this encounter Results * ECG 12 lead (11/14/2024 8:34 AM ACCOUNTING TEACHER) Dona Ferguson NP ECG ORDERABLES Edited Result - Final documented in this encounter Visit Diagnoses Diagnosis Rapid heart beat- Primary Unspecified tachycardia documented in this encounter Discontinued Medications Medication Sig Discontinue Reason Start Date End Da te metoprolol tartrate (LOPRESSOR) 25 mg immediate release tablet Take 1 tablet (25 mg total) by mouth 2 (two) times a day Reorder 11/14/2024 documented as of this encounter Historical Medications * This list may reflect changes made after this encounter. busPIRone (BUSPAR) 5 mg tablet Take 1 tablet (5 mg total) by mouth 2 (two) times a day 10/17/2024 budesonide-formot Frankie (SYMBICORT) 160-4.5 mcg/actuation inhaler Inhale 2 puffs 2 (two) times a day 09/28/2023 albuterol HFA (PROVENTIL HFA,VENTOLIN HFA,PROAIR HFA) 90 mcg/actuation inhaler Inhale 2 puffs every 4 (four) hours acyclovir (ZOVIRAX) 400 mg tablet Take 1 tablet (400 mg total) by mouth 2 (two) times a day 02/09/2024 metoprolol tartrate (LOPRESSOR) 25 mg immediate release tablet Take 1 tablet (25 mg total) by mouth 2 (two) times a day 11/14/2024 added in this encounter Care Teams Computer Technologist Relationship Specialty Start Date End Date Pola Chavarria MD [address] [place] [id number] PCP - General Internal Medicine 11/10/24 documented as of this encounter
--- OUTSIDE RECORDS SUMMARY | 2024-11-15 08:51 | XMS_ITS | Data Portability ---
Author Organization OR - [facility], Main Office Address [address] [place] [address] Assessment Encounter Date Assessment Date Assessment LastModified by Organization Details LastModified Time 02/16/2023 02/16/2023 Continue current therapy seems to be doing fine follow-up in 6 months [email or web address] Not available 02/17/2023 22:25:36 09/27/2023 09/27/2023 Will continue current therapy appears to be doing fine clinically blood pressure 98/66 however when we go down on metoprolol heart rate and palpitations increase she has no orthostasis symptoms will continue current therapy and follow-up 6 month [email or web address] Not available 09/27/2023 21:52:54 Plan of Treatment Reminders Order Date Submit Date Provider Last Modified By Organization Details Last Modified Time Details Appointments None recorded . Lab lipid panel, serum 023 02/17/20 [facility] (Lab), [address] [place], [address], 3 11:49:54 CMP, serum or plasma 023 02/17/20 23 [facility] (Lab), [address] [place], [address], 3 11:49:54 Referral None recorded . Procedures None recorded . Surgeries None recorded . Imaging None recorded . Medication Orders None recorded . Patient TargetsNo targets recorded. Patient InstructionsNo instructions recorded. Reason for Referral None Reported. Results Created Date Observation Date Name Description Value Unit Range Abnormal Flag Note LastModifiedBy Organization Detail LastModifiedTime 02/18/20 22 02/17/2022 TSH thyroid-stim ulating hormone 2.070 uIU/m L 0.465- 4.680 Not Available [facility] (Lab) [address] [place], [address], 02/17/2022 13:46:06 02/18/20 22 02/17/2022 T3 FREE free T3 3.3 pg/mL 2.77-5 .27 Not Available [facility] (Lab) [address] [place], [address], 02/17/2022 13:45:44 02/18/20 22 02/17/2022 T4 FREE free T4 1.03 NG/dL 0.78-2 .19 Not Available [facility] (Lab) [address] [place], [address], 02/17/2022 13:45:41 02/18/20 22 02/17/2022 COMPR EHENS HEMA METAB OLIC PANEL carbon dioxide 29 mmol/ L 22-30 Not Available [facility] (Lab) [address] [place], [address], 02/17/2022 13:16:05 02/18/20 22 02/17/2022 COMPR EHENS HEMA METAB OLIC PANEL sodium 137 mmol/ L 137-14 5 Not Available [facility] (Lab) [address] [place], [address], 02/17/2022 13:16:05 02/18/20 22 02/17/2022 COMPR EHENS HEMA METAB OLIC PANEL potassium 4.7 mmol/ L 3.5-5. 1 Not Available [facility] (Lab) [address] [place], [address], 02/17/2022 13:16:05 02/18/20 22 02/17/2022 COMPR EHENS HEMA METAB OLIC PANEL chloride 105 mmol/ L 98-107 Not Available [facility] (Lab) [address] [place], [address], 02/17/2022 13:16:05 02/18/20 22 02/17/2022 COMPR EHENS HEMA METAB OLIC PANEL anion gap 7.7 mmol/ L 14-22 low Not Available [facility] (Lab) [address] [place], [address], 02/17/2022 13:16:05 02/18/20 22 02/17/2022 COMPR EHENS HEMA METAB OLIC PANEL glucose 87 mg/dL 70-99 Not Available [facility] (Lab) [address] [place], [address], 02/17/2022 13:16:05 02/18/20 22 02/17/2022 COMPR EHENS HEMA METAB OLIC PANEL BUN 17 mg/dL 8-19 Not Available [facility] (Lab) [address] [place], [address], 02/17/2022 13:16:05 02/18/20 22 02/17/2022 COMPR EHENS HEMA METAB OLIC PANEL creatinine 0.72 mg/dL 0.66-1 .25 Not Available [facility] (Lab) [address] [place], [address], 02/17/2022 13:16:05 02/18/20 22 02/17/2022 COMPR EHENS HEMA METAB OLIC PANEL GFR >60 Refer ence Range : [place] [facility] GFR Healt hy Adult : >60 mL/mi n/1.7 3 m2 Chron ic Kidne y Disea se: 15-60 mL/mi n/1.7 3 m2 Kidne y Failu re: <15/m L/min /1.73 m2 www.n iddk. nih.g ov The MDRD study equat ion has not been valid ated in child shanna <18 years of age; pregn ant women ; the elder ly >85 years of age; or in some racia l or ethni c subgr oups, such as Hispa nics. Outsi de the valid ated [facility] , estim ated GFR is less accur ate, requi ring clini camryn judgm ent on a case- by-ca se basis . Clini camryn inter preta tion for other races and ages must be made by the clini juanito. The MDRD study equat ion has not been valid ated for the evalu ation of serum creat inine relat ed to nutri laura l statu s or medic ation usage . For perso ns <18 years of age, a pedia tric GFR calcu lator is avail able on the [facility] websi te: https ://ww w.kid jhonatan.o rg/pr ofess ional s/kdo qi/gf r_cal culat or Not Available [facility] (Lab) [address] [place], [address], 02/17/2022 13:16:05 02/18/20 22 02/17/2022 COMPR EHENS HEMA METAB OLIC PANEL alkaline phosphatase 40 U/L 38-126 Not Available [facility] (Lab) [address] [place], [address], 02/17/2022 13:16:05 02/18/20 22 02/17/2022 COMPR EHENS HEMA METAB OLIC PANEL alanine aminotransfe rase 25 U/L 0-35 Not Available [facility] (Lab) [address] [place], [address], 02/17/2022 13:16:05 02/18/20 22 02/17/2022 COMPR EHENS HEMA METAB OLIC PANEL aspartate aminotransfe rase 30 U/L 15-37 Not Available [facility] (Lab) [address] [place], [address], 02/17/2022 13:16:05 02/18/20 22 02/17/2022 COMPR EHENS HEMA METAB OLIC PANEL bilirubin, total 0.80 mg/dL 0.20-1 .30 Not Available [facility] (Lab) [address] [place], [address], 02/17/2022 13:16:05 02/18/20 22 02/17/2022 COMPR EHENS HEMA METAB OLIC PANEL calcium 9.6 mg/dL 8.4-10 .2 Not Available [facility] (Lab) [address] [place], [address], 02/17/2022 13:16:05 02/18/20 22 02/17/2022 COMPR EHENS HEMA METAB OLIC PANEL total protein 6.5 g/dL 6.3-8. 2 Not Available [facility] (Lab) [address] [place], [address], 02/17/2022 13:16:05 02/18/20 22 02/17/2022 COMPR EHENS HEMA METAB OLIC PANEL albumin 4.1 g/dL 3.4-5. 0 Not Available [facility] (Lab) [address] [place], [address], 02/17/2022 13:16:05 02/18/20 22 02/17/2022 COMPR EHENS HEMA METAB OLIC PANEL globulin 2.4 g/dL 2.6-4. 2 low Not Available [facility] (Lab) [address] [place], [address], 02/17/2022 13:16:05 02/18/20 22 02/17/2022 COMPR EHENS HEMA METAB OLIC PANEL A/G ratio 1.7 ratio 1.0-2. 0 Not Available [facility] (Lab) [address] [place], [address], 02/17/2022 13:16:05 02/18/20 22 02/17/2022 LIPID PANEL LDL cholesterol, calculated 81 mg/dL 0-130 NIH DENA NSUS REPOR T RECOM MENDA TIONS FOR LDL: ADULT CHILD LOW RISK <130 <110 (OPTI MAL LDL) <100 ----- VALERIE RLINE : 130-1 59 ----- HIGH RISK: >160 >130 A TRIGL YCERI DE RESUL T >400 INVAL IDATE S THE CALCU LATIO N FOR LDL FRACT IONAT ION - THE LDL RESUL T WILL NOT BE REPOR ANÍBAL. Not Available [facility] (Lab) [address] [place], [address], 02/17/2022 13:15:59 02/18/20 22 02/17/2022 LIPID PANEL cholesterol 151 mg/dL 140-19 9 NIH DENA NSUS RECOM MENDA TION FOR HOLLY STERO L: ADULT CHILD LOW RISK: <200 <170 BORDE RLINE : <200- 239 ----- HIGH RISK: >240 >200 Not Available [facility] (Lab) [address] [place], [address], 02/17/2022 13:15:59 02/18/20 22 02/17/2022 LIPID PANEL triglyceride s 59 mg/dL 0-150 NIH DENA NSUS REPOR T RECOM MENDA TION FOR TRIGL YCERI KAYY: ADULT CHILD LOW RISK: <150 ----- BODER LINE: 150-1 99 ----- HIGH RISK: >200 ----- Not Available [facility] (Lab) [address] [place], [address], 02/17/2022 13:15:59 02/18/20 22 02/17/2022 LIPID PANEL HDL cholesterol 58 mg/dL 40- Not Available [facility] (Lab) [address] [place], [address], 02/17/2022 13:15:59 02/18/20 22 02/17/2022 PROTI ME W/INR protime 10.8 secon ds 9.5-11 .5 Not Available [facility] (Lab) [address] [place], [address], 02/17/2022 13:12:02 02/18/20 22 02/17/2022 PROTI ME W/INR INR 1.0 INR INDIC ATION S 2.0 - 3.0 PROPH YLAXI S: VENOU S THROM BOSIS (HIGH RISK SURGE RY) AND SYSTE DEANN EMBOL ISM (TISS UE HEART VALVE S, AMI VALVU LAR HEART DISEA SE AND ATRIA L FIBRI LLATI ON). TREAT MENT: VENOU S THROM BOSIS AND PULMO NARY EMBOL ISM BILEA FLET MECHA NICAL VALVE S IN AORTI C POSIT ION. 2.5 - 3.5 MECHA NICAL PROST HETIC HEART VALVE S (TILT ING DISK VALVE S AND BILEA FLET MECHA NICAL VALVE S IN RAJNI L POSIT ION). PREVE NTION OF RECUR RENT MYOCA RDIAL INFAR CTION . ANTIP HOSPH OLIPI D SYNDR OME. Not Available [facility] (Lab) [address] [place], [address], 02/17/2022 13:12:02 02/18/20 22 02/17/2022 CBC/C OMPLE TE BLD COUNT W/DIF F white blood cells 6.8 x10'3 /uL 4.2-10 .8 Not Available [facility] (Lab) [address] [place], [address], 02/17/2022 12:45:38 02/18/20 22 02/17/2022 CBC/C OMPLE TE BLD COUNT W/DIF F red blood cells 4.57 x10'6 /uL 3.80-5 .20 Not Available [facility] (Lab) [address] [place], [address], 02/17/2022 12:45:38 02/18/20 22 02/17/2022 CBC/C OMPLE TE BLD COUNT W/DIF F hemoglobin 14.2 g/dL 12.0-1 5.6 Not Available [facility] (Lab) [address] [place], [address], 02/17/2022 12:45:38 02/18/20 22 02/17/2022 CBC/C OMPLE TE BLD COUNT W/DIF F hematocrit 43.2 % 35.7-4 5.7 Not Available [facility] (Lab) [address] [place], [address], 02/17/2022 12:45:38 02/18/20 22 02/17/2022 CBC/C OMPLE TE BLD COUNT W/DIF F mean red cell volume 94.5 fL 82.0-9 9.0 Not Available [facility] (Lab) [address] [place], [address], 02/17/2022 12:45:38 02/18/20 22 02/17/2022 CBC/C OMPLE TE BLD COUNT W/DIF F mean red cell hemoglobin 31.1 pg 27.0-3 3.0 Not Available [facility] (Lab) [address] [place], [address], 02/17/2022 12:45:38 02/18/20 22 02/17/2022 CBC/C OMPLE TE BLD COUNT W/DIF F mean RBC HGB concentratio n 32.9 g/dL 31.0-3 6.0 Not Available [facility] (Lab) [address] [place], [address], 02/17/2022 12:45:38 02/18/20 22 02/17/2022 CBC/C OMPLE TE BLD COUNT W/DIF F red cell distribution width 13.3 % 11.8-1 5.5 Not Available [facility] (Lab) [address] [place], [address], 02/17/2022 12:45:38 02/18/20 22 02/17/2022 CBC/C OMPLE TE BLD COUNT W/DIF F platelets 273 x10'3 /uL 150-40 0 Not Available [facility] (Lab) [address] [place], [address], 02/17/2022 12:45:38 02/18/20 22 02/17/2022 CBC/C OMPLE TE BLD COUNT W/DIF F mean platelet volume 9.7 fL 9.0-12 .4 Not Available [facility] (Lab) [address] [place], [address], 02/17/2022 12:45:38 02/18/20 22 02/17/2022 CBC/C OMPLE TE BLD COUNT W/DIF F neutrophils 64.0 % 39.0-7 2.0 Not Available [facility] (Lab) [address] [place], [address], 02/17/2022 12:45:38 02/18/20 22 02/17/2022 CBC/C OMPLE TE BLD COUNT W/DIF F lymphocytes 21.0 % 16.0-4 7.0 Not Available [facility] (Lab) [address] [place], [address], 02/17/2022 12:45:38 02/18/20 22 02/17/2022 CBC/C OMPLE TE BLD COUNT W/DIF F monocytes 9.5 % 5.0-12 .0 Not Available [facility] (Lab) [address] [place], [address], 02/17/2022 12:45:38 02/18/20 22 02/17/2022 CBC/C OMPLE TE BLD COUNT W/DIF F eosinophils 4.1 % 1.0-7. 0 Not Available [facility] (Lab) [address] [place], [address], 02/17/2022 12:45:38 02/18/20 22 02/17/2022 CBC/C OMPLE TE BLD COUNT W/DIF F basophils 1.0 % 0.0-2. 0 Not Available [facility] (Lab) [address] [place], [address], 02/17/2022 12:45:38 02/18/20 22 02/17/2022 CBC/C OMPLE TE BLD COUNT W/DIF F immature granulocytes 0.4 % 0.00-0 .50 Not Available [facility] (Lab) [address] [place], [address], 02/17/2022 12:45:38 02/18/20 22 02/17/2022 CBC/C OMPLE TE BLD COUNT W/DIF F neutrophils, absolute count 4.33 x10'3 /uL 1.5-8. 0 Not Available [facility] (Lab) [address] [place], [address], 02/17/2022 12:45:38 02/18/20 22 02/17/2022 CBC/C OMPLE TE BLD COUNT W/DIF F immature granulocytes ,absolute 0.03 x10'3 /uL 0.00-0 .05 Not Available [facility] (Lab) [address] [place], [address], 02/17/2022 12:45:38 02/18/20 22 02/17/2022 CBC/C OMPLE TE BLD COUNT W/DIF F lymphocytes, absolute count 1.42 x10'3 /uL 1.07-3 .43 Not Available [facility] (Lab) [address] [place], [address], 02/17/2022 12:45:38 02/18/20 22 02/17/2022 CBC/C OMPLE TE BLD COUNT W/DIF F monocytes, absolute count 0.64 x10'3 /uL 0.29-0 .99 Not Available [facility] (Lab) [address] [place], [address], 02/17/2022 12:45:38 02/18/20 22 02/17/2022 CBC/C OMPLE TE BLD COUNT W/DIF F eosinophils, absolute count 0.28 x10'3 /uL 0.02-0 .53 Not Available [facility] (Lab) [address] [place], [address], 02/17/2022 12:45:38 02/18/20 22 02/17/2022 CBC/C OMPLE TE BLD COUNT W/DIF F basophils, absolute count 0.07 x10'3 /uL 0.01-0 .08 Not Available [facility] (Lab) [address] [place], [address], 02/17/2022 12:45:38 02/18/20 22 02/17/2022 CBC/C OMPLE TE BLD COUNT W/DIF F nucleated red blood cells 0.0 % -0 Not Available [facility] (Lab) [address] [place], [address], 02/17/2022 12:45:38 02/18/20 22 02/17/2022 CBC/C OMPLE TE BLD COUNT W/DIF F NRBC# 0.00 x10'3 /uL Not Available [facility] (Lab) [address] [place], [address], 02/17/2022 12:45:38 01/06/20 22 01/04/2022 rashid VASQUEZ, digit al, bilat eral No observ ation record ed. [id number] [facility] ([facility]) [address] [place] [address], [address], 12/13/2022 03:07:30 07/17/20 22 07/14/2022 arter ial study , lower extre mity, compl ete No observ ation record ed. [id number] [facility] [address], [place], [address], 12/13/2022 03:07:30 01/12/20 23 01/11/2023 rashid VASQUEZ, digit al, bilat eral No observ ation record ed. [email or web address] [address], [address], 02/19/2023 10:52:26 06/26/20 23 04/09/2023 XR, toe(s ) No observ ation record ed. [email or web address] [facility] [address] [facility] [address], [place], [address], 08/25/2023 20:17:05 12/21/19 24 12/21/2023 MAMMO , scree yeni, digit al, bilat eral No observ ation record ed. [email or web address] [facility] [address] [facility] [address], [place], [address], 01/24/2024 14:09:45 Result Notes None recorded. Problems Name Problem SNOMED Code Status Onset Date Resolution Date Notes Provider Name and Address Organization Details Recorded Time Palpitations 18557591 Active 2022 Pola Chavarria MD [address] [place] [address] [address], [place], [address] , [facility] 3 22:25:25 Cellulitis 680239216 Active Not Available [facility] 3 02:58:58 Acute sinusitis 63992677 Active Not Available [facility] 3 02:58:58 Contact urticaria 18575764 Active Not Available [facility] 3 02:58:58 Asthma 807511653 Active Not Available [facility] 3 02:58:58 Low back pain 278208581 Active Not Available [facility] 3 02:58:59 Acute urticaria 640930534 Active Not Available [facility] 3 02:58:59 Easy bruising 486234425 Active 2021 Not Available [facility] 3 02:58:59 Sacral back pain 76253264 Active Not Available [facility] 3 02:58:59 Urinary tract infectious disease 40756214 Active Not Available [facility] 3 02:58:59 Rhinitis 87125573 Active Not Available [facility] 3 02:58:59 Fatigue 97865458 Active 2021 Not Available [facility] 3 02:58:59 Problem Notes None recorded. Procedures Surgical History Date Name Laterality Status Provider Name and Address Organization Details Recorded Time 03/08/20 Disc replacement surgery completed Not Available [facility] 12/13/2022 02:51:32 lumbar spinal fusion completed Not Available [facility] 12/13/2022 02:51:32 Breast augmentation w/implt completed Not Available [facility] 12/13/2022 02:51:32 Disc replacement surgery completed Not Available [facility] 12/13/2022 02:51:32 Imaging Results Imaging Date Name Status LastModified by Organiz ation Details LastModified Time 01/04/2022 MAMMO, screening, digital, bilateral completed [id number] [facility] ([facility]) [address] [place] [address], [address], 12/13/2022 03:07:30 07/14/2022 arterial study, lower extremity, complete completed [id number] [facility] [address], [place], [address], 12/13/2022 03:07:30 01/11/2023 MAMMO, screening, digital, bilateral completed [email or web address] [address], [address], 02/19/2023 10:52:26 04/09/2023 XR, toe(s) completed [email or web address] [address], [address], 08/25/2023 20:17:05 12/21/2023 MAMMO, screening, digital, bilateral completed [email or web address] [address], [address], 01/24/2024 14:09:45 Procedure Notes None recorded. Medical Equipment None Reported. Allergies Allergen ID Allergen Name Allergen Category Reaction Reaction Severity Criticality Documentation Date Start Date Code Code System Note Provider Name and Address Organization Details Recorded Time 5143 codeine medicatio n Not available Not available Not available 12/13/2022 2670 RxNorm Not Available [facility] 03:07:05 Medications Name Sig Start Date Stop Date Status Note LastModified by Organization Details LastModified Time cyclobenzap rine 10 mg tablet TAKE 1 TABLET BY MOUTH AT BEDTIME NEEDED FOR SPASM / HEADACHE 04/29 completed Not Available Not Available Not Available amoxicillin 500 mg capsule TAKE ONE CAPSULE BY MOUTH EVERY 8 HOURS UNTIL ALL TAKEN 09/27 completed Not Available Not Available Not Available prednisone 10 mg tablet Take by oral route. active Not Available Not Available No t Available paroxetine 10 mg tablet TAKE 1 TABLET BY MOUTH EVERY DAY active Not Available Not Available No t Available azithromyci n 250 mg tablet TAKE 2 TABLETS BY MOUTH DAILY FOR 1 DAY THEN TAKE 1 TABLET BY MOUTH DAILY FOR 4 DAYS 09/27 completed Not Available Not Available Not Available ibuprofen 800 mg tablet TK 1 T PO TID PRN 10/03 completed Not Available Not Available Not Available tizanidine 4 mg tablet TK 1 T PO HS PRF SPASM/ HEADACHE 10/03 completed Not Available Not Available Not Available fluconazole 150 mg tablet TAKE 1 TABLET BY MOUTH EVERY DAY 08/18 completed Not Available Not Available Not Available ranitidine 300 mg tablet Take 1 tablet every day by oral route for 14 days. 10/30 completed Not Available Not Available Not Available hydrocodone 5 mg-acetamin ophen 325 mg tablet TAKE 1 TABLET BY MOUTH EVERY 6 HOURS NEEDED FOR PAIN 04/29 completed Not Available Not Available Not Available meloxicam 15 mg tablet TK 1 T PO QD PRN P 02/03 completed Not Available Not Available Not Available phenazopyri dine 200 mg tablet TK 1 T PO TID PRN P 11/14 completed Not Available Not Available Not Available metronidazo le 0.75 % (37.5 mg/5 gram) vaginal gel INSERT 1 APPLICATO RFUL VAGINALLY AT BEDTIME FOR 5 DAYS 02/17 completed Not Available Not Available Not Available ondansetron HCl 4 mg tablet 08/02 completed Not Available Not Available Not Available prednisone 20 mg tablet TK 2 TS PO QD FOR 7 DAYS active Not Available Not Available No t Available terconazole 0.8 % vaginal cream INSERT 1 APPLICATO RFUL VAGINALLY AT BEDTIME FOR 3 DAYS 04/29 completed Not Available Not Available Not Available moxifloxaci n 400 mg tablet TAKE 1 TABLET BY MOUTH EVERY DAY 08/18 completed Not Available Not Available Not Available metronidazo le 500 mg tablet TAKE 1 TABLET BY MOUTH TWICE DAILY 08/18 completed Not Available Not Available Not Available acyclovir 400 mg tablet TAKE 1 TABLET BY MOUTH TWICE DAILY active Not Available Not Available No t Available valacyclovi r 500 mg tablet TAKE 1 TABLET BY MOUTH EVERY DAY active Not Available Not Available No t Available ciprofloxac in 500 mg tablet TAKE 1 TABLET BY MOUTH EVERY 12 HOURS BEGINNING AFTER SURGERY 04/29 completed Not Available Not Available Not Available sulfamethox azole 800 mg-trimetho prim 160 mg tablet TAKE 1 TABLET BY MOUTH EVERY 12 HOURS FOR 7 DAYS 09/27 completed Not Available Not Available Not Available doxycycline monohydrate 100 mg tablet TAKE 1 TABLET BY MOUTH TWICE DAILY 08/18 completed Not Available Not Available Not Available tramadol 50 mg tablet TK 1 T PO Q 6 H PRN 10/30 completed Not Available Not Available Not Available baclofen 20 mg tablet TK 1 T PO QHS 03/08 completed Not Available Not Available Not Available nystatin-tr iamcinolone 100,000 unit/gram-0 .1 % topical ointment 10/30 completed Not Available Not Available Not Available cefadroxil 500 mg capsule TAKE 1 CAPSULE BY MOUTH TWICE DAILY 02/17 completed Not Available Not Available Not Available meloxicam 7.5 mg tablet TAKE 1 TABLET BY MOUTH TWICE DAILY NEEDED FOR PAIN 04/29 completed Not Available Not Available Not Available oxycodone-a cetaminophe n 5 mg-325 mg tablet TAKE 1 TABLET BY MOUTH EVERY 4 HOURS NEEDED FOR PAIN 08/19 completed Not Available Not Available Not Available alprazolam 0.5 mg tablet TK 1 TO 2 TS PO BEFORE PROCEDURE UTD 03/08 completed Not Available Not Available Not Available prednisolon e acetate 1 % eye drops,suspe nsion INSTILL 1 DROP INTO EACH EYE QID FOR 7 DAYS active Not Available Not Available No t Available dicyclomine 20 mg tablet 10/30 completed Not Available Not Available Not Available sulfacetami de sodium 10 % eye drops INT 1 GTT IN OS TID active Not Available Not Available No t Available baclofen 10 mg tablet TK 1 T PO QHS 03/08 completed Not Available Not Available Not Available erythromyci n 5 mg/gram (0.5 %) eye ointment APPLY TO AFFECTED AREA BID active Not Available Not Available No t Available oseltamivir 75 mg capsule 06/29 completed Not Available Not Available Not Available lidocaine 5 % topical patch APPLY 1 PATCH TO SKIN ONCE DAILY. MAY WEAR UP TO 12 HOURS 03/08 completed Not Available Not Available Not Available Qvar 40 mcg/actuati on Metered Aerosol oral inhaler INHALE 2 PUFFS BY MOUTH TWICE DAILY 10/30 completed Not Available Not Available Not Available Advair Diskus 250 mcg-50 mcg/dose powder for inhalation Inhale 1 puff twice a day by inhalatio n route. 06/17 completed Not Available Not Available Not Available betamethaso ne, augmented 0.05 % topical ointment APPLY TOPICALLY TO THE AFFECTED AREA TWICE DAILY 02/17 completed Not Available Not Available Not Available sertraline 25 mg tablet TK 1 T PO D 11/14 completed Not Available Not Available Not Available diltiazem CD 120 mg capsule,ext ended release 24 hr TK 1 C PO D active Not Available Not Available No t Available montelukast 10 mg tablet TAKE 1 TABLET BY MOUTH EVERY DAY 06/29 completed Not Available Not Available Not Available clindamycin 2 % vaginal cream INSERT 1 APPLICATO RFUL VAGINALLY DAILY AT BEDTIME FOR 5 DAYS active Not Available Not Available No t Available hydroxyzine HCl 25 mg tablet TK 1 T PO Q 6 H PRN 11/14 completed Not Available Not Available Not Available ergocalcife rol (vitamin D2) 1,250 mcg (50,000 unit) capsule TK 1 C PO WEEKLY FOR 4 WKS 11/14 completed Not Available Not Available Not Available diazepam 10 mg tablet 03/08 completed Not Available Not Available Not Available ibuprofen 600 mg tablet TAKE 1 TABLET BY MOUTH EVERY 6 HOURS NEEDED FOR PAIN 01/22 completed Not Available Not Available Not Available cefuroxime axetil 500 mg tablet Take 1 tablet every 12 hours by oral route for 10 days. 06/29 completed Not Available Not Available Not Available methylpredn isolone 4 mg tablets in a dose pack TK UTD 01/14 completed Not Available Not Available Not Available albuterol sulfate HFA 90 mcg/actuati on aerosol inhaler INHALE 2 PUFFS BY MOUTH EVERY 4 HOURS active Not Available Not Available No t Available Cipro 250 mg tablet Take 1 tablet every 12 hours by oral route for 7 days. 06/17 completed Not Available Not Available Not Available ondansetron 4 mg disintegrat ing tablet active Not Available Not Available N ot Available fluticasone propionate 50 mcg/actuati on nasal spray,suspe nsion SHAKE LIQUID AND USE 1 SPRAY IN EACH NOSTRIL 1 TO 2 TIMES A DAY active Not Available Not Available No t Available clotrimazol e 1 % topical cream APPLY TOPICALLY TO THE AFFECTED AREA TWICE DAILY 02/17 completed Not Available Not Available Not Available loratadine 10 mg tablet TK 1 T PO D FOR 30 DAYS active Not Available Not Available No t Available naproxen 500 mg tablet 10/03 completed Not Available Not Available Not Available diazepam 5 mg tablet TAKE 1 TABLET BY MOUTH THREE TIMES DAILY NEEDED FOR MUSCLE SPASMS 08/19 completed Not Available Not Available Not Available amoxicillin 875 mg-potassiu m clavulanate 125 mg tablet TK 1 T PO BID WITH MORNING AND EVENING MEALS FOR 10 DAYS active Not Available Not Available No t Available amoxicillin 500 mg-potassiu m clavulanate 125 mg tablet TK 1 T PO BID 06/17 completed Not Available Not Available Not Available hydroxyzine pamoate 25 mg capsule TAKE 1 CAPSULE BY MOUTH EVERY NIGHT AT BEDTIME NEEDED 08/18 completed Not Available Not Available Not Available azithromyci n 500 mg tablet TAKE 2 TABLET BY MOUTH EVERY DAY 08/18 completed Not Available Not Available Not Available metoprolol tartrate 25 mg tablet TAKE 1 TABLET BY MOUTH TWICE DAILY active Not Available Not Available No t Available tinidazole 500 mg tablet 10/30 completed Not Available Not Available Not Available nitrofurant oin monohydrate /macrocryst als 100 mg capsule TAKE 1 CAPSULE BY MOUTH EVERY 12 HOURS FOR 7 DAYS 08/18 completed Not Available Not Available Not Available Symbicort 160 mcg-4.5 mcg/actuati on HFA aerosol inhaler INHALE 2 PUFFS BY MOUTH TWICE DAILY 2022 active Not Available Not Available Not Avai lable Flovent Diskus 100 mcg/actuati on powder for inhalation INHALE ONE PUFF PO BID 12/02 completed Not Available Not Available Not Available Dulera 200 mcg-5 mcg/actuati on HFA aerosol inhaler Inhale 2 puffs twice a day by inhalatio n route. active Not Available Not Available No t Available Vitals Date Recorded Body height Provider Name an d Address Organization Details Last Updated DateTime 02/16/2023 172.72 cm Vickie Henriquez [facility] 02/16/2023 09:56:52 Date Recorded Body mass index (BMI) Body weight Provider Name and Address Organization Details Last Updated DateTime 02/16/2023 19.5 kg/m2 56827.82 g Vickie Henriquez [facility] 02/16/2023 09:56:56 Date Recorded Body temperature Provider Name a nd Address Organization Details Last Updated DateTime 02/16/2023 97.5 [degF] Vickie Henriquez [facility] 02/16/2023 09:57:58 Date Recorded Heart rate Provider Name an d Address Organization Details Last Updated DateTime 02/16/2023 60 /min Vickiedilma Henriquez [facility] 02/16/2023 09:58:15 Date Recorded Body height Provider Name an d Address Organization Details Last Updated DateTime 09/27/2023 172.72 cm Keya Dennison [facility] 09/27/2023 15:37:13 Date Recorded Body mass index (BMI) Body weight Provider Name and Address Organization Details Last Updated DateTime 09/27/2023 19.5 kg/m2 87153.82 g Keya Dennison [facility] 09/27/2023 15:37:21 Date Recorded Body temperature Provider Name a nd Address Organization Details Last Updated DateTime 09/27/2023 97.2 [degF] Keya Dennison [facility] 09/27/2023 15:37:43 Date Recorded Heart rate Provider Name an d Address Organization Details Last Updated DateTime 09/27/2023 70 /min Keya Dennison [facility] 09/27/2023 15:37:45 Date Recorded Oxygen saturation Oxygen saturation in Arterial blood by Pulse oximetry Provider Name and Address Organization Details Last Updated DateTime 09/27/2023 98 % 98 % Keya Dennison [facility] 09/27/2023 15:37:50 Date Recorded Body mass index (BMI) Body mass index (BMI) Body mass index (BMI) Provider Name and Address Organization Details Last Updated DateTime 12/13/2022 21.6 kg/m2 19.9 kg/m2 19.5 kg/m2 Not Available [facility] 12/13/2022 02:57:22 Date Recorded Body height Body height Body height Provider Name and Address Organization Details Last Updated DateTime 12/13/2022 172.72 cm 172.72 cm 172.72 cm Not Available Pending sale to [facility] 12/13/2022 02:57:25 Date Recorded Heart rate Provider Name an d Address Organization Details Last Updated DateTime 12/13/2022 80 /min Not Available [facility] 02:57:26 Date Recorded Heart rate Heart rate Body temperature Body temperature Body temperature Provider Name and Address Organization Details Last Updated DateTime 64 /min 60 /min 97.6 [degF] 97.5 [degF] 97.9 [degF] Not Available [facility] 02:57:27 Date Recorded Body weight Body weight Body weight Provider Name and Address Organization Details Last Updated DateTime 12/13/2022 12829.12 g 92874.6 g 68515.82 g Not Available [facility] 12/13/2022 02:57:28 Date Recorded Systolic blood pressure Diastolic blood pressure Provider Name and Address Organization Details Last Updated DateTime 02/16/2023 118 mm[Hg] 72 mm[Hg] YANNI Kruger [place] - [facility] 02/16/2023 09:59:08 Date Recorded Systolic blood pressure Diastolic blood pressure Provider Name and Address Organization Details Last Updated DateTime 09/27/2023 98 mm[Hg] 66 mm[Hg] Keya Dennison CMA [place] - [facility] 09/27/2023 15:37:32 Date Recorded Systolic blood pressure Diastolic blood pressure Systolic blood pressure Diastolic blood pressure Systolic blood pressure Diastolic blood pressure Provider Name and Address Organization Details Last Updated DateTime 120 mm[Hg] 80 mm[Hg] 100 mm[Hg] 70 mm[Hg] 110 mm[Hg] 68 mm[Hg] Not Available [facility] 02:57:24 Social History Question Answer Notes LastModified by Organizat ion Details LastModified Time Tobacco Smoking Status Former Smoker quit 2012 BENJAMIN Resendiz L[facility] 02/16/2023 09:50:07 Do You Have An Advance Directive? No [id number] Information not available 12/13/2022 What Is Your Level Of Alcohol Consumption? Moderate [id number] Information not available 12/13/2022 What Is Your Level Of Caffeine Consumption? Occasional [id number] Information not available 12/13/2022 How Much Tobacco Do You Chew? None [id number] Information not available 12/13/2022 In The 14 Days Before Symptom Onset, Have You Had Close Contact With A Laboratory-confi rmed COVID-19 While That Case Was Ill? No Information not available 02/16/2023 In The 14 Days Before Symptom Onset, Have You Had Close Contact With A Person Who Is Under Investigation For COVID-19 While That Person Was Ill? No Information not available 02/16/2023 What Type Of Diet Are You Following? REGULAR [id number] Information not available 12/13/2022 Which Illicit Or Recreational Drugs Have You Used? None Information not available 02/16/2023 Do You Or Have You Ever Used E-cigarettes Or Vape? Current User Of Electronic Cigarettes Information not available 02/16/2023 What Is The Highest Grade Or Level Of School You Have Completed Or The Highest Degree You Have Received? 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 No Information not available 02/16/2023 Are There Any Guns Present In Your Home? No Information not available 02/16/2023 Do You Use Insect Repellent Routinely? Yes Information not available 02/16/2023 Where [facility] You [facility]? [facility] Information not available 02/16/2023 Do You Have A Medical Power Of Turning Lathe Tender? No Information not available 02/16/2023 What Was The Date Of Your Most Recent Tobacco Screening? 02/16/2023 [email or web address] Information not available 02/16/2023 Do You Have Any Pets? Yes Information not available 02/16/2023 What Is Your Relationship Status? Single [id number] Information not available 12/13/2022 Do You Have Smoke And Carbon Monoxide Detectors In Your Home? Yes Information not available 02/16/2023 Are You Passively Exposed To Smoke? No Information not available 02/16/2023 Do You Or Have You Ever Used Smokeless Tobacco? Never Used Smokeless Tobacco [id number] Information not available 12/13/2022 Are There Any Smokers In Your House? No Information not available 02/16/2023 How Much Tobacco Do You Smoke? No [id number] Information not available 12/13/2022 Do You Feel Stressed (tense, Restless, Nervous, Or Anxious, Or Unable To Sleep At Night)? [id number] Information not available 02/16/2023 Do You Use Sunscreen Routinely? Yes Information not available 02/16/2023 Have You Recently Traveled Abroad? No Information not available 02/16/2023 Do You Have Any Dietary Restrictions? No Information not available 02/16/2023 Do You Or Have You Ever Used Any Other Forms Of Tobacco Or Nicotine? Yes Information not available 02/16/2023 Sex: Unknown Functional Status Question Answer Note LastModified by Organizat ion Details LastModified Time What is your exercise level? None [id number] Information not available 12/13/2022 Mental Status None recorded. Family History Relationship Description Onset Age of this Age Resolved Age Notes LastModified by Organization Details LastModified Time Maternal Grandmother Malignant tumor of breast [id number] Not available 12/13/2022 02:51:38 Mother General health good [id number] Not available 12/13/2022 02:51:38 Father Cerebrovascu lar accident [id number] Not available 12/13/2022 02:51:38 Medical History Condition Response NERVE DISEASE N BLINDNESS N RHEUMATIC FEVER N KIDNEY STONES N BLADDER PROBLEMS N OTHER # 1 N POLIO N LUNG DISEASE/DISORDER N RADIATION / CHEMOTHERAPY N COPD N Other # 2 N BLOOD DISEASES N SURGERY N EAR OR HEARING PROBLEMS N MUMPS N BOWEL PROBLEMS N DEPRESSION (INCLUDING POST ) N STROKE/TIA N ULCERS N BENIGN PROSTATIC HYPERPLASIA N MEASLES N MYOCARDIAL INFARCTION N OBESITY N GERD/NAUSEA N ANEURYSM N URINARY/BLADDER/KIDNEY PROBLEMS N INPATIENT PSYCH CARE N CORONARY ARTERY DISEASE (CAD) N ADDICTION CONCERNS N Impotence N ENDOMETRIOSIS N USE OF BLOOD THINNERS N SKIN PROBLEMS N GASTROINTESTINAL DISORDER N PERIPHERAL VASCULAR DISEASE N MUSCLE,JOINT OR BONE PROBLEMS N GASTROINTESTINAL BLEEDING N BLOOD CLOTS N ASTHMA Y CATARACTS N ERECTILE DYSFUNCTION N VARICOSITIES N GI PROBLEMS N Low Testosterone N INFERTILITY N AIDS/HIV N LIVER DISEASE N MALE HYPOGONADISM N HYPERTENSION N Deficiency N ANXIETY DISORDER N BLOOD TRANSFUSION N ANEMIA/BLOOD DISORDER N CHRONIC EAR INFECTIONS N BRONCHITIS Y TUBERCULOSIS N GLAUCOMA N FOOT PROBLEM N DIVERTICULITIS N SLEEP APNEA N CHICKENPOX N INFECTIOUS DISEASE N PROSTATE N HEART ARRHYTHMIA N INSOMNIA N HIGH CHOLESTEROL / HYPERLIPIDEMIA N EYE PROBLEMS N HYPERTHYROIDISM N NEUROLOGICAL PROBLEMS N EDEMA N CHRONIC PAIN SYNDROME N HYPOTHYROIDISM N CONSTIPATION N CAROTID BLOCKAGE N BACK / NECK PROBLEMS Y HAVE YOU BEEN HOSPITALIZED OR SEEN IN [facility] ER IN THE PAST YEAR ? N ATHEROSCLEROSIS N BREAST PROBLEMS N DIALYSIS N ECZEMA N OSTEOPOROSIS N ARTHRITIS N APPENDICITIS N DIABETES, TYPE N BAD TEETH N ENT N HEARTBURN / REFLUX N AUTISM SPECTRUM DISORDER (ASD) N HEPATITIS / LIVER DISEASE N PULMONARY DISEASE N GOUT N SLEEP DISORDER N ALZHEIMER'S DISEASE N Brain Problems N DEMENTIA N HERPES N SEIZURES/EPILEPSY N HEADACHES/MIGRAINES N VASCULAR DISEASE N PACEMAKER N Blood Disorder N DIZZINESS N HEART DISEASE/HEART PROBLEMS N KIDNEY DISEASE N MULTIPLE SCLEROSIS N CANCER: SPECIFY N CARDIAC ARRHYTHMIA N ANESTHESIA COMPLICATIONS N ATRIAL FIBRILLATION N Gall Stones N PULMONARY EMBOLISM N AUTOIMMUNE DISEASE N Gynecological History Statement/Question Response Date of Last Mammogram 12/18/2019 Date of LMP Obstetrics History GPAL:G 2 P 2 0 0 2 Type Value Full Term 2 Living 2 Total 2 Immunizations Vaccine Type Date Status Note Provider Nam e and Address Organization Details Recorded Time Influenza, split virus, quadrivalent, preservative 9 completed Not Available [facility] 12/13/2022 03:06:55 COVID-19 vaccine, vector-nr, [id number], PF, 0.5 mL 1 completed Keya Dennison, SAW CLEANER null, [place] [facility] 09/27/2023 15:38:10 Influenza, split virus, trivalent, preservative 4 completed Keya Dennison CMA null, [place] - [facility] 09/27/2023 15:38:10 Influenza, split virus, trivalent, preservative 3 completed Not Available [facility] 12/13/2022 03:06:55 Influenza, split virus, quadrivalent, PF 2 completed Not Available [facility] 12/13/2022 03:06:55 Influenza, split virus, quadrivalent, PF 1 completed Not Available [facility] 12/13/2022 03:06:56 Influenza, split virus, quadrivalent, PF 0 completed Not Available [facility] 12/13/2022 03:06:56 Influenza, MDCK, quadrivalent, PF 8 completed Not Available [facility] 12/13/2022 03:06:56 Influenza, split virus, trivalent, PF 4 completed Keya Dennison CMA null, Interview - [employer] [facility] 09/27/2023 15:38:10 Influenza, split virus, trivalent, preservative 3 completed Keya Dennison SAW CLEANER null, Interview - [employer] [facility] 09/27/2023 15:38:10 Past Encounters Encounter ID Performer Location Encounter Start Date Encounter Closed Date Diagnosis/Indication Diagnosis SNOMED-CT Code Diagnosis ICD10 Code Diagnosis Note [id number] [facility] [address] [address] 12/31/2020 00:00:00 12/31/2020 17:25:48 [id number] [facility] Internal Med [facility] [address] [place] [address] Ave[address] [address] 04/29/2021 00:00:00 04/30/2021 09:48:54 [id number] [facility] Internal Med [facility] [address] [place] [address] Ave[address] [address] 08/19/2021 00:00:00 08/28/2021 21:47:04 [id number] [facility] Internal Med [facility] [address] [place] [address] Ave[address] [address] 02/17/2022 00:00:00 02/17/2022 23:05:50 [id number] [facility] Internal Med [facility] [address] , [facility] [address] [place] [address] 08/18/2022 00:00:00 09/10/2022 20:09:13 [id number] Pola Chavarria MD [facility] Internal Med [facility] [address] , [facility] [address] [place] [address] 02/16/2023 09:49:37 02/16/2023 10:57:03 Asthma 318133877 J45.909 Screening for cardiovascular system disease 388773981 Z13.6 Palpitations 59315544 R0 0.2 [id number] Pola Chavarria MD [facility] Internal Med [facility] [address] [facility] [place] [address] 09/27/2023 15:28:06 09/27/2023 16:40:26 Asthma 225709171 J45.909 Palpitations 00059489 R0 0.2 Rhinitis 57196288 J00 Health Concerns Section Related Observation LastModified by Organization Detai ls LastModified Time None Recorded Concern Status LastModified by Organization Details LastModified Time None Recorded Advance Directives Directive N: Payers Encounter Date Sequence Insurance Name Policy Number Policy Canales Covered Member ID Canales Member ID Guarantor Name 02/16/2023 1 [facility] (MEDICAID HMO) [id number] Aruna Villagran [id number] Aruna Villagran 09/27/2023 1 [facility] (MEDICAID HMO) [id number] Aruna Villagran [id number] Aruna Villagran Notes Date Note Type Note Provider Name and Address Organization Details Recorded Time 02/16/2023 text/html Asthma doing fin e and no rescue inhaler usePalpitations doing great tolerating the beta-blockerLow back pain stable Pola Chavarria MD [address], [address], [place], [address], [place] [facility] 02/17/2023 22:25:59 09/27/2023 text/html Palpitations hav e been doing fine asthma has not been decompensated she is holding off on getting into more coronavirus shots and is not interested in RSVP but will consider fluid Pola Chavarria MD [address] [place] [address], [place], [address], [place] [facility] [employer] 09/27/2023 21:53:23 OBGyn Episode No OBEpisode recorded.
--- OUTSIDE RECORDS SUMMARY | 2024-11-15 08:52 | XMS_ITS | Clinical Summary ---
Author Organization [facility] Address [address] [place] [address] Care Team Providers Care Hardwood Floor Installation Helper Name Role Phone Pola Chavarria MD Primary Care Provider [phone] Source Comments [facility],non-[place] Affiliates and Associated Physician Practices is amultiple site organization consisting of ambulatory clinics and hospital sitesin [place], [place], [place] and [place]. This disclosure is being madepursuant to the Care Everywhere program and may not contain all information available regarding this patient. Last updated 18.[facility] Allergies Active Allergy Reactions Criticality Noted Date Comments Codeine 10/28/2016 Codeine Itching 10/28/2016 Medications * Be aware that medications may not be up to date on this document. Alwaysverify current medications with the patient. Medication Sig Dispensed Refills Start Date End Date Status levonorgestrel (MIRENA, 52 MG,) 20 MCG/24HR IUD 1 Device by Intrauterine route as directed Active budesonide-formote rol (SYMBICORT) 160-4.5 MCG/ACT inhaler Inhale 2 (two) puffs by mouth 2 times daily Active metoprolol tartrate IR (Lopressor) 25 MG tablet Take 1 (one) tablet by mouth 2 times daily Active dilTIAZem coated beads 24hr (Cardizem CD) 120 MG capsule Take 1 (one) capsule by mouth once daily Active albuterol HFA (Proventil; Ventolin; Proair) 108 (90 Base) MCG/ACT inhaler Take 2 (two) puffs by mouth every 4 hours as needed Active acetaminophen (Tylenol) 500 MG tablet Take 2 (two) tablets by mouth every 4 hours as needed for Fever or Pain Maximum allowable Acetaminophen amount = 4 Grams (4000 mg) / 24 hours. Active Multiple Vitamins-Minerals (HAIR SKIN AND NAILS FORMULA PO) Take 1 tablet by mouth once daily Active acyclovir (Zovirax) 400 MG tablet 2 times daily 02/09/2024 Active ondansetron, disintegrating, (Zofran ODT) 4 MG tablet Take 1 (one) tablet by mouth every 6 hours as needed for Nausea/Vomiting Allow tablet to dissolve on the tongue 20 tablet 02/09/2024 Active HYDROcodone-acetam inophen ([place]) 5-325 MG tabletIndications: Injury of head, initial encounter,Contusio n of sacrum, initial encounter Take 1 (one) tablet by mouth every 4 hours as needed for Pain 10 tablet 02/09/2024 Active Active Problems Problem Noted Date Diagnosed Date 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 Inflamed seborrheic keratosis 01/19/2021 Assessment & Plan (01/19/2021 5:32 PM CDT): - R thigh x 1 - Benign, patient reassured - Due to irritation, cryotherapy peformed today (see procedure note) - Post cryotherapy handout given Lipoma of left lower extremity 01/19/2021 Assessment & Plan (01/19/2021 5:32 PM CDT): - Benign, reassurance provided Multiple benign nevi of uppe r extremity, lower extremity, and trunk 01/19/2021 Assessment & Plan (01/19/2021 5:32 PM CDT): - No atypical or concerning moles on exam today - Reviewed ABCDEs of melanoma - Sun protection reviewed, handout provided - Annual FBSE recommended Actinic skin damage 01/19/2021 Assessment & Plan (01/19/2021 5:31 PM CDT): - Skin cancer, sun protection, and photoaging discussed - Sunscreen handout provided Asthma 07/13/2020 Cellulitis 07/13/2020 Contact urticaria 07/13/2020 Urinary tract infectious disease 07/13/2020 Encounter for other orthopedic aftercare [id number] Sacral back pain 04/02/2019 Resolved Problems Problem Noted Date Diagnosed Date Resolved Date Acute sinusitis 07/13/2020 07/13/2020 Rhinitis 07/13/2020 07/13/2020 Immunizations Name Administration Dates Next Due INFLUENZA VACCINE, TRIV. (AF LURIA, FLUZONE TRIVALENT; 6MO+) (IIV3) 08/11/2014,08/02/2013,08/01/2013 FLU VACCINE QUAD IIV4 SPLIT 0.25 ML IM 9 FLU VACCINE TRI IIV3 SPLIT PF IM (FLUVIRIN) 07/16 INFLUENZA VACCINE, CELL CULT URE, QUADR. (FLUCELVAX QUADRIVALENT; 6MO+) (CCIIV4) 10/03/2018 Social History Tobacco Use Types Packs/Day Years Used Date Smoking Tobacco: Former Smokeless Tobacco: Former Tobacco Cessation:Counseling Given: Not Answered Alcohol Use Standard Drinks/Week Comments Not Currently 0 (1 standard drink = 0.6 oz pur e alcohol) occ AUDIT-C Answer Date Recorded Q1: How often do you have a drink containing alc ohol? Monthly or less 07/13/2020 Q2: How many drinks containi ng alcohol do you have on a typical day when you are drinking? 3 or 4 07/13/2020 Frequency of Binge Drinking Not on file 06/16 Sex and Gender Information Value Date Recorded Sex Assigned at Not on file Gender Identity Not on file Sexual Orientation Not on file Last Filed Vital Signs Vital Sign Reading Time Taken Comments Blood Pressure 112/52 02/09/2024 5:26 PM CDT Pulse 76 02/09/2024 5:26 PM CDT Temperature 36.6 ??C (97.9 ??F) 02/09/2024 5:26 PM CD T Respiratory Rate 16 02/09/2024 5:26 PM CDT Oxygen Saturation 99% 02/09/2024 5:26 PM CDT Inhaled Oxygen Concentration - - Weight 58.1 kg (128 lb) 02/09/2024 3:18 PM CDT Height 175.3 cm (5' 9 ) 02/09/2024 3:18 PM CDT Body Mass Index 18.9 02/09/2024 3:18 PM CDT Plan of Treatment Health Maintenance Due Date Last Done Comments COLOGUARD (AGES 45-75) - COLON CA SCREENING 1978 COLON MONITORING 1978 COLONOSCOPY - COLON CA SCREENING 1978 CT COLONOGRAPHY - COLON CA SCREENING 1978 Colorectal Cancer Screening 1978 FIT - COLON CA SCREENING 1978 FLEX SIG - COLON CA SCREENING 1978 LIPID TESTING 1978 MAMMOGRAM 1978 PAP SMEAR 1978 HIV SCREENING 1993 HEPATITIS C SCREENING 09/20/1996 DTAP/TDAP/TD VACCINES (1 - Tdap) 1997 HEPATITIS B VACCINE (1 of 3 - 19+ 3-dose series) 1997 PNEUMOCOCCAL VACCINE (1 of 2 - PCV) 1997 COVID-19 VACCINE (3 - season) 2024 09/07/2021, 12/17/2020 INFLUENZA VACCINE (#1) 2024 2, 08/19/2021, 07/26/2020, Additional history exists DEPRESSION SCREENING 10/15/2024 ZOSTER VACCINE (1 of 2) 2028 HIB VACCINE Aged Out No longer eligi ble based on patient's age to complete this topic HPV VACCINE Aged Out No longer eligi ble based on patient's age to complete this topic MENINGOCOCCAL (Group B) VACCINE Aged Out No longer eligible based on patient's age to complete this topic MENINGOCOCCAL VACCINE Aged Out No phoebe quique eligible based on patient's age to complete this topic Care Teams Hardwood Floor Installation Helper Relationship Specialty Start Date End Date Pola Chavarria MD PCP - General Internal Medicine 10/28/16
--- OUTSIDE RECORDS SUMMARY | 2024-11-15 08:52 | XMS_ITS | Encounter Summary ---
Author Organization [facility] Address [address] [place] [address] Care Team Providers Care Steno Typist Name Role Phone Unavailable Primary Care Provider Unavailabl e Encounter Details Date Type Department Care Team (Latest Contact Info) Description 04/10/2001 Outpatient Historical [facility],NON-PATIENT Conversion, History Dysplasia of cervix (uteri) (Primary Dx) Social History Tobacco Use Types Packs/Day Years Used Date Smoking Tobacco: Never Assessed Comments Unknown Sex and Gender Information Value Date Recorded Sex Assigned at Not on file Legal Sex Female 5:19 AM [employer]PER[employer] Gender Identity Not on file Sexual Orientation Not on file documented as of this encounter Plan of Treatment Not on file documented as of this encounter Visit Diagnoses Diagnosis Dysplasia of cervix (uteri)- Primary documented in this encounter
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
--- OUTSIDE RECORDS SUMMARY | 2024-11-15 08:52 | XMS_ITS | Referral Summary ---
Author Organization [facility] Address [address] [place] [address] Care Team Providers Care Pricing Analyst Name Role Phone Pola Chavarria MD Primary Care Provider [phone] Source Comments [facility]ates and Associated Physician Practices is amultiple site organization consisting of ambulatory clinics and hospital sitesin [place], [place], [place] and [place]. This disclosure is being madepursuant to the Care Everywhere program and may not contain all information available regarding this patient. Last updated 18.[facility] Allergies Active Allergy Reactions Criticality Noted Date [...] tongue 20 tablet 02/09/2024 Active HYDROcodone-acetam inophen ([place]) 5-325 MG tabletIndications: Injury of head, initial [...] 02/09/2024 3:18 PM CDT Plan of Treatment Not on file Care Teams Pricing Analyst Relationship Specialty Start Date End Date Pola Chavarria MD PCP - General Internal Medicine 10/28/16
--- OUTSIDE RECORDS SUMMARY | 2024-11-15 08:52 | XMS_ITS | Clinical Summary ---
Author Organization [facility] Orthopedic [facility] Address [address] [place] [address] Care Team Providers Care Associate Professor Of Engineering Name Role Phone Pola Chavarria MD Primary Care Provider [phone] Allergies Active Allergy Reactions Criticality Noted Date [...] ) Active Problems No known active problems Encounters Date Type Department Care Team Description 11/14/2024 8:30 AM MOLD CAR PUSHER Office Visit [facility] [address] [facility] Medical Office Building [address] [place] [phone] Dona Ferguson NP Rapid heart beat (Primary Dx) 11/12/2024 7:25 PM MOLD CAR PUSHER - 11/12/2024 11:59 PM MOLD CAR PUSHER Hospital Encounter [facility] [address] [place] [address] Arrived Discharge Disposition: Discharge to home or self care 11/10/2024 Telephone [facility] [address] [facility] Advanced Medicine 8th [place] [address] [place] [phone] Melita Hilario from Last 3 Months Social History Tobacco Use Types Packs/Day Years Used Date Smoking Tobacco: Every Day E-cigarettes Smokeless Tobacco: Never Tobacco Cessation:Ready to Q uit: Not Asked; Counseling Given: Not Answered Comments Unknown Sex and Gender Information Value Date Recorded Sex Assigned at Not on file Legal Sex Female 3:30 AM MOLD CAR PUSHER Gender Identity Not on file Sexual Orientation Not on file Obstetrics History Last Filed Vital Signs Vital Sign Reading Time Taken Comments Blood Pressure 114/80 11/14/2024 8:34 AM MOLD CAR PUSHER Pulse 96 11/14/2024 8:34 AM MOLD CAR PUSHER Temperature - - Respiratory Rate 18 11/14/2024 8:34 AM MOLD CAR PUSHER Oxygen Saturation 96% 11/14/2024 8:34 AM MOLD CAR PUSHER Inhaled Oxygen Concentration - - Weight 62 kg (136 lb 9.6 oz) 11/14/2024 8:34 AM MOLD CAR PUSHER Height 175.3 cm (5' 9 ) 11/14/2024 8:34 AM MOLD CAR PUSHER Body Mass Index 20.17 11/14/2024 8:34 AM MOLD CAR PUSHER Plan of Treatment Health Maintenance Due Date Last Done Comments Breast Cancer Screening-Mammogram 1978 Cervical Cancer Screening 1978 Colon Cancer Screening-Colonoscopy 1978 Depression Screening 1978 Hepatitis C Screening 1978 Pneumococcal vaccine <65 (1 of 2 - PCV) 1984 Hepatitis B Screening 1996 Regular Well Visit/Exam 18-64 1996 Covid-19 Vaccine ( season) 2024 09/07/2021, 12/10/2020 Influenza Vaccine (#1) 2024 2, 08/19/2021, 07/26/2020, Additional history exists DTaP/Tdap/Td Vaccine (2 - Td or Tdap) 06/20/2030 06/20/2020 HPV Vaccines Aged Out No longer eligi ble based on patient's age to complete this topic Procedures Procedure Name Priority Date/Time Associated Diagnosis Comments ECG 12-LEAD Routine 11/14/2024 8:34 AM MOLD CAR PUSHER Rapid heart beat US TRANSFER OF OUTSIDE FILMS Routine 11/12/2024 7:25 PM MOLD CAR PUSHER from Last 3 Months Results * ECG 12 lead (11/14/2024 8:34 AM MOLD CAR PUSHER) Dona Ferguson NP ECG ORDERABLES Edited Result - Final * US Outside Reference (11/12/2024 7:25 PM MOLD CAR PUSHER) Impressions [facility] - 11/12/2024 7:25 PM MOLD CAR PUSHER These images are for Reference purposes only and have not been reviewed by [facility]. ??There will be no report generated by a [facility] Radiologist. Narrative [facility] - 11/12/2024 7:25 PM MOLD CAR PUSHER EXAMINATION: ??Images For Reference Purposes Only us Kris Braun MD IMG US PROCEDURES Final Resu lt [facility] from Last 3 Months Insurance [facility] Care Teams Associate Professor Of Engineering Relationship Specialty Start Date End Date Pola Chavarria MD [address] [place] [address] PCP - General Internal Medicine 11/10/24
--- OUTSIDE RECORDS SUMMARY | 2024-11-15 08:52 | XMS_ITS | Patient Health Summary ---
Author Organization [facility] Address [address] [facility] [place] [address] Care Team Providers Care Upsetter Setter Up Name Role Phone Pola Chavarria MD Primary Care Provider [phone] Note from [facility],non-owned Affiliates and Associated Physician Practices is amultiple site organization consisting of ambulatory clinics and hospital sitesin [place], [place]. This disclosure is being madepursuant to the Care Everywhere program and may not contain all information available regarding this patient. Last updated 18.[facility] Allergies * Codeine * Codeine(Itching) Medications * Be aware that medications may not be up to date on this document. Alwaysverify current medications with the patient. * levonorgestrel (MIRENA, 52 MG,) 20 MCG/24HR IUD 1 Device by Intrauterine route as directed * budesonide-formoterol (SYMBICORT) 160-4.5 MCG/ACT inhaler Inhale 2 (two) puffs by mouth 2 times daily * metoprolol tartrate IR (Lopressor) 25 MG tablet Take 1 (one) tablet by mouth 2 times daily * dilTIAZem coated beads 24hr (Cardizem CD) 120 MG capsule Take 1 (one) capsule by mouth once daily * albuterol HFA (Proventil; Ventolin; Proair) 108 (90 Base) MCG/ACT inhaler Take 2 (two) puffs by mouth every 4 hours as needed * acetaminophen (Tylenol) 500 MG tablet Take 2 (two) tablets by mouth every 4 hours as needed for Fever or Pain Maximum allowable Acetaminophen amount = 4 Grams (4000 mg) / 24 hours. * Multiple Vitamins-Minerals (HAIR SKIN AND NAILS FORMULA PO) Take 1 tablet by mouth once daily * acyclovir (Zovirax) 400 MG tablet(Started 02/09/2024) 2 times daily * ondansetron, disintegrating, (Zofran ODT) 4 MG tablet(Started 02/09/2024) Take 1 (one) tablet by mouth every 6 hours as needed for Nausea/Vomiting Allow tablet to dissolve on the tongue * HYDROcodone-acetaminophen (Byron) 5-325 MG tablet(Started 02/09/2024) Take 1 (one) tablet by mouth every 4 hours as needed for Pain Active Problems Problem Noted Date Diagnosed Date 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 Inflamed seborrheic keratosis 01/19/2021 Lipoma of left lower extremity 01/19/2021 Multiple benign nevi of uppe r extremity, lower extremity, and trunk 01/19/2021 Actinic skin damage 01/19/2021 Asthma 07/13/2020 Cellulitis 07/13/2020 Contact urticaria 07/13/2020 Urinary tract infectious disease 07/13/2020 Encounter for other orthopedic aftercare 019 Sacral back pain 04/02/2019 Resolved Problems Problem Noted Date Diagnosed Date Resolved Date Acute sinusitis 07/13/2020 07/13/2020 Rhinitis 07/13/2020 07/13/2020 Immunizations * INFLUENZA VACCINE, TRIV. (AFLURIA, FLUZONE TRIVALENT; 6MO+) (IIV3)(Given 08/11/2014, 08/02/2013, 08/01/2013) * FLU VACCINE QUAD IIV4 SPLIT 0.25 ML IM(Given 07/15/2019) * FLU VACCINE TRI IIV3 SPLIT PF IM (FLUVIRIN)(Given 08/10/2014) * INFLUENZA VACCINE, CELL CULTURE, QUADR. (FLUCELVAX QUADRIVALENT; 6MO+) (CCIIV4)(Given 10/03/2018) Social History Tobacco Use Types Packs/Day Years [...] Mass Index 18.9 02/09/2024 3:18 PM CDT Procedures * XR SACRUM AND COCCYX(Performed 02/09/2024) Performed for Fall, initial encounter * CT CERVICAL SPINE WO CONTRAST(Performed 02/09/2024) Performed for Fall, initial encounter * CT HEAD WO CONTRAST(Performed 02/09/2024) Performed for Fall, initial encounter * [place] DESTRUCT BENIGN LESION, 1-14(Performed 01/19/2021) Performed for Inflamed seborrheic keratosis * CT FACIAL BONES WO CONTRAST(Performed 06/20/2020) Performed for Dog bite of face, initial encounter * CT HEAD WO CONTRAST(Performed 06/20/2020) Performed for Dog bite of face, initial encounter Results * XR SACRUM AND OR COCCYX [id number] (02/09/2024 4:39 PM CDT) Anatomical Region Laterality Modality Spine Computed Radiogr aphy 02/09/2024 4:50 PM CDT Narrative 02/09/2024 4:50 PM CDT PROCEDURE: XR SACRUM AND COCCYX ??02/09/2024 4:50 PM HISTORY: W19.XXXA: Unspecified fall, initial encounter. FINDINGS AND IMPRESSION: COMPARISON: No comparison. No acute fracture, dislocation, destructive process Posterolateral fusion L5-S1. Prosthetic discs are noted at L3-L4 L4-5 and L5-S1. Grade 2 ??spondylolisthesis of L4 in relation to S1. > Interpreting Provider: Sharif Pereira MD on 02/09/2024 4:50 PM Procedure Note Sharif Pereira MD - 02/09/2024 PROCEDURE: XR SACRUM AND COCCYX 02/09/2024 4:50 PM HISTORY: W19.XXXA: Unspecified fall, initial encounter. FINDINGS AND IMPRESSION: COMPARISON: No comparison. No acute fracture, dislocation, destructive process Posterolateral fusion L5-S1. Prosthetic discs are noted at L3-L4 L4-5 and L5-S1. Grade 2 spondylolisthesis of L4 in relation to S1. > Interpreting Provider: Sharif Pereira MD on 02/09/2024 4:50 PM Marco Dejesus ETCH OPERATOR SEMICONDUCTOR W[employer]ERS-[employer]EL[employer] DIAGNOSTIC GAIL GING ORDERABLES * CT CERVICAL SPINE WO CONTRAST (02/09/2024 4:20 PM CDT) Anatomical Region Laterality Modality Spine Computed Tomogra phy 02/09/2024 4:45 PM CDT Impressions 02/09/2024 4:49 PM CDT IMPRESSION: Stable postoperative changes. No fracture or cord compression. ?? > Interpreting Provider: Sharif Pereira MD on 02/09/2024 4:49 PM Narrative 02/09/2024 4:49 PM CDT PROCEDURE: CT CERVICAL SPINE WO CONTRAST ??02/09/2024 4:46 PM HISTORY: [id number].XXXA: Unspecified fall, initial encounter. FINDINGS AND IMPRESSION: COMPARISON: No comparison. CT dose reduction technique was utilized. AEC was utilized. No acute fracture, dislocation or destructive process. No evidence of canal stenosis or cord compression. C1-C2 articulation is unremarkable. Pedicles and paraspinal soft tissue structures are normal. Prevertebral soft tissue structures appear unremarkable. Disc prosthesis is noted at C3-C4, C5-C6 and C6-C7. Surgical hardware in satisfactory position No evidence of hardware failure or loosening. Procedure Note Sharif Pereira MD - 02/09/2024 PROCEDURE: CT CERVICAL SPINE WO CONTRAST 02/09/2024 4:46 PM HISTORY: [id number].XXXA: Unspecified fall, initial encounter. FINDINGS AND IMPRESSION: COMPARISON: No comparison. CT dose reduction technique was utilized. AEC was utilized. No acute fracture, dislocation or destructive process. No evidence of canal stenosis or cord compression. C1-C2 articulation is unremarkable. Pedicles and paraspinal soft tissue structures are normal. Prevertebral soft tissue structures appear unremarkable. Disc prosthesis is noted at C3-C4, C5-C6 and C6-C7. Surgical hardware in satisfactory position No evidence of hardware failure or loosening. IMPRESSION: Stable postoperative changes. No fracture or cord compression. > Interpreting Provider: Sharif Pereira MD on 02/09/2024 4:49 PM Marco Dejesus ETCH OPERATOR SEMICONDUCTOR WAFERS-BARKER PEELER CT ORDERABLES * CT HEAD WO CONTRAST (02/09/2024 4:20 PM CDT) Only the most recent of2 resultswithin the time period is included. Anatomical Region Laterality Modality Head Computed Tomogra phy 02/09/2024 4:45 PM CDT Impressions 02/09/2024 4:45 PM CDT IMPRESSION: Negative noncontrast head CT. > Interpreting Provider: Sharif Pereira MD on 02/09/2024 4:45 PM Narrative 02/09/2024 4:45 PM CDT PROCEDURE: CT HEAD WO CONTRAST ??02/09/2024 4:45 PM HISTORY: [id number].XXXA: Unspecified fall, initial encounter. FINDINGS AND IMPRESSION: COMPARISON: No comparison. Radiation dose reduction technique was utilized. AEC was utilized. FINDINGS: No acute intracranial hemorrhage, midline shift, or mass effect. No extra-axial fluid collection is identified. Brainstem and cerebellum appear unremarkable. Posterior cranial fossa and CP angles are normal. No evidence of hydrocephalus. No calvarial abnormalities noted. Visualized portions of paranasal sinuses, orbits and mastoid air cells appear unremarkable. Procedure Note Sharif Pereira MD - 02/09/2024 PROCEDURE: CT HEAD WO CONTRAST 02/09/2024 4:45 PM HISTORY: [id number].XXXA: Unspecified fall, initial encounter. FINDINGS AND IMPRESSION: COMPARISON: No comparison. Radiation dose reduction technique was utilized. AEC was utilized. FINDINGS: No acute intracranial hemorrhage, midline shift, or mass effect. No extra-axial fluid collection is identified. Brainstem and cerebellum appear unremarkable. Posterior cranial fossa and CP angles are normal. No evidence of hydrocephalus. No calvarial abnormalities noted. Visualized portions of paranasal sinuses, orbits and mastoid air cells appear unremarkable. IMPRESSION: Negative noncontrast head CT. > Interpreting Provider: Sharif Pereira MD on 02/09/2024 4:45 PM Marco Dejesus ETCH OPERATOR [employer]IC[employer] WAFERS-BARKER PEELER CT ORDERABLES * AZ DESTRUCT BENIGN LESION, 1-14 (01/19/2021 5:33 PM CDT) Narrative Rancho Pereira MD - 01/19/2021 5:33 PM CDT Kimberlee Musa DO ? 01/19/2021 ??5:33 PM Diagnosis and treatment options discussed. Cryotherapy (Liquid Nitrogen) to 1 lesions for 10 seconds each. Number of cycles: 1. Wound care reviewed. Kimberlee Musa DO [facility] Dermatology Resident, PGY-3 Rancho Pereira MD PROCEDURE/MINOR SURG ICAL ORDERABLES * CT FACIAL BONES WO CONTRAST (06/20/2020 4:49 PM CDT) Anatomical Region Laterality Modality Head Computed Tomogra phy 06/20/2020 7:48 PM CDT Impressions 06/21/2020 10:40 AM CDT IMPRESSION: 1. No acute intracranial process. 2. No acute facial bone fractures identified. 3. Bilateral nasal lacerations. Report dictated by Enrique Joe MD (radiology aide). I, Dr. DARREN TREADWELL M.D. have personally reviewed and interpreted this examination/study. This report was electronically signed by DARREN TREADWELL M.D. ??on 06/21/2020 10:40 AM . Narrative 06/21/2020 10:[address] HEAD WO CONTRAST, CT FACIAL BONES WO CONTRAST DATE: 06/20/2020 4:50 PM EXAMINATION: 1. Computed tomography (CT) of the head without contrast 2. CT of the maxillofacial bones, orbits, and paranasal sinuses without contrast HISTORY: S01.85XA: Dog bite of face, initial encounter W54.0XXA: Dog bite of face, initial encounter TECHNIQUE: CT of the head and maxillofacial bones, orbits, and paranasal sinuses was performed without contrast according to standard protocol. COMPARISON: No prior study is available for comparison at the time of this dictation. FINDINGS: Head: No acute intra- or extra-axial hemorrhage is identified. The ventricles are of normal size, shape, and morphology. The basal cisterns are patent. No mass effect or midline shift is seen. The bess-white matter differentiation is normal. There is no significant white matter abnormality. No acute fracture is identified. Maxillofacial: The orbits and orbital contents appear normal. The paranasal sinuses are clear. The hard palate, mandible, and temporomandibular joints appear normal. No acute facial bone fractures are identified. The mastoid air cells are clear. Lacerations to the bilateral aspects of the nose without evidence of intraorbital extension are present. Procedure Note Darren Treadwell MD - 06/21/2020 CT HEAD WO CONTRAST, CT FACIAL BONES WO CONTRAST DATE: 06/20/2020 4:50 PM EXAMINATION: 1. Computed tomography (CT) of the head without contrast 2. CT of the maxillofacial bones, orbits, and paranasal sinuses without contrast HISTORY: S01.85XA: Dog bite of face, initial encounter W54.0XXA: Dog bite of face, initial encounter TECHNIQUE: CT of the head and maxillofacial bones, orbits, and paranasal sinuses was performed without contrast according to standard protocol. COMPARISON: No prior study is available for comparison at the time ofthis dictation. FINDINGS: Head: No acute intra- or extra-axial hemorrhage is identified. The ventricles are of normal size, shape, and morphology. The basal cisterns arepatent. No mass effect or midline shift is seen. The bess-white matter differentiation is normal. There is no significant white matter abnormality. No acute fracture is identified. Maxillofacial: The orbits and orbital contents appear normal. The paranasal sinuses are clear. The hard palate, mandible, and temporomandibular joints appear normal. No acute facial bone fractures are identified. The mastoid air cells are clear. Lacerations to the bilateral aspects of the nosewithout evidence of intraorbital extension are present. IMPRESSION: 1. No acute intracranial process. 2. No acute facial bone fractures identified. 3. Bilateral nasal lacerations. Report dictated by Enrique Joe MD (radiology aide). I, Dr. DARREN TREADWELL M.D. have personally reviewed and interpreted this examination/study. This report was electronically signed by DARREN TREADWELL M.D. on 06/21/2020 10:40 AM . Warren Arora MD CT ORDERABLES Care Teams Upsetter Setter Up Relationship Specialty Start Date End Date Pola Chavarria MD PCP - General Internal Medicine 10/28/16
--- OUTSIDE RECORDS SUMMARY | 2024-11-15 08:52 | XMS_ITS | Clinical Summary ---
Author Organization [facility] Address [address] [place] [address]. 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 Gender Identity Not on file Sexual Orientation Not on file Plan of Treatment Health Maintenance Due Date Last Done Comments Cervical Cancer Screening Pa p Smear (Age 30 to 64) Every 3 Years 1978 Colorectal Cancer Screening Colonoscopy (10 Years) 1978 Annual Physical 1981 Hepatitis C 1996 DTaP, Tdap and Td Vaccines ( 1 - Tdap) 1997 Hepatitis B Vaccines (1 of 3 - 19+ 3-dose series) 1997 Cervical Cancer Screening Pa p with HPV Testing (Age 30 to 64) Every 5 Years 2008 Cervical Cancer Screening with HPV 2008 Mammogram Screening 2018 COVID-19 Vaccine (2023-2 5 season) 2024 Influenza Adult (#1) 2024 HPV Vaccines Aged Out No longer eligi ble based on patient's age to complete this topic Meningococcal B Vaccine Aged Out No l onger eligible based on patient's age to complete this topic Meningococcal Vaccine Aged Out No phoebe quiqeu eligible based on patient's age to complete this topic Pneumococcal Vaccine: Pediat rics (0 to 5 Years) and At-Risk Patients (6 to 64 Years) Aged Out No longer eligible b ased on patient's age to complete this topic RSV Immunizations Under 20 Months Aged Out No longer eligible based on patient's age to complete this topic
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
[2024-11-15 09:00] VITALS: BP 126/76; PULSE 89; RESP 18; TEMP 36.8; O2SAT 99
--- NOTE | 2024-11-15 09:04 | ED.GENADULT ---
HPI - General Adult General Chief complaint: Ear Stated complaint: Bilateral Ear infection Time Seen by Provider: 11/15/24 09:04 Source: patient Mode of arrival: ambulatory Limitations: no limitations History of Present Illness HPI narrative: 44-year-old female patient presents to the [facility] with complaints of bilateral ear fullness. Patient states she has been having some muffled hearing denies pain to the ear. Denies fevers, body aches or chills. Denies any runny nose. Patient states she had a little bit of a sinus infection last month and did take a Z-Kj for it. Patient states she has been using Flonase and sinus rinse it but it does not seem to help. Related Data Home Medications ?Medication ?Instructions ?Recorded ?Confirmed ?Last Taken ?Type budesonide-formoterol HFA 160 2 puff inhalation Q12H 12/20/19 04/09/23 Unknown History mcg-4.5 mcg/actuation aerosol inhaler (Symbicort) metoprolol tartrate 25 mg tablet 25 mg PO DAILY 06/20/20 Unknown History Allergies Allergy/AdvReac Type Severity Reaction Status Date / Time codeine Allergy Unknown Unknown Verified 11/15/24 09:11 Review of Systems Review of Systems: CONSTITUTIONAL: Denies fever, chills, or sweats. EYES: Denies visual changes, redness, or discharge. ENT: Denies rhinorrhea, congestion, sore throat, Positive bilateral otalgia. CARDIOVASCULAR: Denies chest pain, palpitations, or edema. RESPIRATORY: Denies cough or dyspnea. GASTROINTESTINAL: Denies abdominal pain, nausea, vomiting, or diarrhea. GENITOURINARY: Denies dysuria or hematuria. SKIN: Denies rash or itching. MUSCULOSKELETAL: Denies back pain, joint pain, or myalgia. NEUROLOGIC: Denies headache, numbness, or weakness. PSYCHIATRIC: Denies anxiety or depression. [facility] Past Medical History Medical History Tachycardia Asthma MVP (mitral valve prolapse) Urinary tract infection Surgical History Surgical History History of back surgery Family History Family History Other Asthma Family history of cardiovascular disease Family history of malignant neoplasm Social History Social History Smoking status: Former smoker Smoking end date: 10/15/11 Alcohol intake: current Gender identity (if verbalized by the patient): Female Comments At the time of my signature I agree with nursing past medical history, surgical, social, and family history. There is no relevant family history pertinent to the presenting complaint. Exam Narrative: GENERAL: Well-appearing, well-nourished, and in no acute distress. HEAD: Normocephalic, atraumatic. EYES: PERRLA and EOMI. ENT: Nares clear, no rhinorrhea or epistaxis. Mucous membranes moist. posterior pharynx with no erythema, tonsillar enlargement, exudates or lesions. Bilateral TMs do show some fluid behind the tympanic membrane but no redness, no bulging no evidence of an active infection at this time. NECK: Supple. No lymphadenopathy CHEST: Clear to auscultation. No respiratory distress. HEART: Regular rate and rhythm. No murmur heard. Normal peripheral pulses. ABDOMEN: Soft, nontender, nondistended, normal active bowel sounds. EXTREMITIES: Normal range of motion. No edema. SKIN: Warm, dry, no rash. NEURO: No focal deficits. Alert and oriented x3. Course Course Level of Care: Express Care Visit Vital Signs Vital signs: Vital Signs Temperature 36.8 C 11/15/24 09:00 Pulse Rate 89 11/15/24 09:00 Respiratory Rate 18 11/15/24 09:00 Blood Pressure 126/76 11/15/24 09:00 Pulse Oximetry 99 11/15/24 09:00 Oxygen Delivery Room Air 11/15/24 09:00 Temperature 36.8 C 11/15/24 09:00 Pulse Rate 89 11/15/24 09:00 Respiratory Rate 18 11/15/24 09:00 Blood Pressure 126/76 11/15/24 09:00 Pulse Oximetry 99 11/15/24 09:00 Oxygen Delivery Room Air 11/15/24 09:00 Vital signs reviewed. Medical Decision Making MDM Narrative Medical decision making narrative: Plan care for patient is discharge home with a Medrol Dosepak to help with fluid behind the ears. Also encouraged patient to use the Flonase twice in the morning and twice in the evening until her symptoms are start to relief. Also recommended daily antihistamine. Patient verbalized understanding denies any other questions or concerns at this time. Patient advised that if symptoms worsen, develops pain or fevers and she needs come back for evaluation of antibiotics. Differential Diagnosis Differential Diagnosis: Differential diagnosis: Otitis media, otitis externa, perforated TM, infection of the outer ear, foreign body or cerumen impaction, ruptured TM, acute mastoiditis, ligament otitis externa, dehydration, pneumonia, sepsis, dental or intraoral infection, TMJ dysfunction Vital Signs Vital Signs: Vital Signs Temperature 36.8 C 11/15/24 09:00 Pulse Rate 89 11/15/24 09:00 Respiratory Rate 18 11/15/24 09:00 Blood Pressure 126/76 11/15/24 09:00 Pulse Oximetry 99 11/15/24 09:00 Oxygen Delivery Room Air 11/15/24 09:00 Temperature 36.8 C 11/15/24 09:00 Pulse Rate 89 11/15/24 09:00 Respiratory Rate 18 11/15/24 09:00 Blood Pressure 126/76 11/15/24 09:00 Pulse Oximetry 99 11/15/24 09:00 Oxygen Delivery Room Air 11/15/24 09:00 Critical Care Time Critical Care Time Critical Care Time: No Discharge Plan Discharge Clinical Impression: Acute serous otitis media, Fluid level behind tympanic membrane of both ears Patient Disposition: Home, Self-Care Condition: Stable Instructions: Antibiotic Form, Fluid In The Ear (Serous Otitis Media) (ED) Additional Instructions: use Flonase twice a day to help decrease fluid behind the ears as well as take the prescribed steroid and use a daily antihistamine. If you developed pain to the ears, develop a fever or any other worsening symptoms please come back for re-evaluation of possible antibiotics. Patient Language: Mongolian Prescriptions: New methylprednisolone 4 mg tablets,dose pack See Rx Instructions PO .COMPLEX Qty: 21 0RF Rx Instructions: for 6 days No Action budesonide-formoterol [Symbicort] 160-4.5 mcg/actuation Hfa Aerosol Inhaler 2 puff INHALATION Q12H metoprolol tartrate 25 mg tablet 25 mg PO DAILY cyclobenzaprine 10 mg tablet 10 mg PO TID PRN (Reason: muscle spasm) Qty: 14 0RF Follow-up/Referrals: Deon,MD Pola [Primary Care Provider] - Time of Disposition: 09:43
== END 2024-11-15 09:46 | disposition home or self-care (01) ==
PROVIDERS: Emergency Provider Nurse Practitioner Family; PCP Internal Medicine
DX: H65.03 Acute serous otitis media, bilateral (principal); H73.893 Other specified disorders of tympanic membrane, bilateral; I34.1 Nonrheumatic mitral (valve) prolapse; J45.909 Unspecified asthma, uncomplicated; Z87.891 Personal history of nicotine dependence
CPT/HCPCS: 99213; G0463

== ENCOUNTER 2024-11-27 16:28 | Outpatient (CLI) | payer OTHER, SELFPAY ==
--- NOTE | ~2024-11-27 | US_ITS ---
EXAMINATION: US pelvic complete DATE: 11/27/2024 17:02 INDICATION: Missing intrauterine device. TECHNIQUE: Multiple transabdominal and transvaginal sonographic images of the pelvis were obtained. COMPARISON: CT 07/02/2018 FINDINGS: TRANSABDOMINAL ULTRASOUND: The uterus measures 9.3 x 4.2 x 5.4 cm. There is no free fluid in the pelvis. TRANSVAGINAL ULTRASOUND: The endometrial complex measures 5 mm in thickness. There is an intrauterine device in the lower uter ine segment. The right ovary is not visualized. The left ovary measures 2.5 x 1.2 x 1.9 cm. IMPRESSION: 1. Intrauterine device in abnormally low position in the endometrial complex. Reviewed, dictated and finalized at location A. [facility]
--- OUTSIDE RECORDS SUMMARY | 2024-11-27 16:32 | XMS_ITS | Referral Summary ---
Author Organization [facility] [employer] Address [address] [place] [address] Care Team Providers Care Home Health Clinical Supervisor Name Role Phone Pola Chavarria MD Primary Care Provider [phone] [facility] [employer],non-[facility] Affiliates and Associated Physician Practices is amultiple site organization consisting of ambulatory clinics and hospital sitesin [place], [place], [place] and [place]. This disclosure is being madepursuant to the Care Everywhere program and may not contain all information available regarding this patient. Last updated 18.[facility] [employer] Allergies Active Allergy Reactions Criticality Noted Date [...] tongue 20 tablet 02/09/2024 Active HYDROcodone-acetam inophen ([place]) 5-325 MG tabletIndications: Injury of head, initial [...] 76 02/09/2024 5:26 PM CDT Temperature 36.6 C (97.9 F) 02/09/2024 5:26 PM CDT Respiratory Rate 16 02/09/2024 5:26 PM CDT Oxygen Saturation 99% 02/09/2024 5:26 PM CDT Inhaled Oxygen Concentration - - Weight 58.1 kg (128 lb) 02/09/2024 3:18 PM CDT Height 175.3 cm (5' 9 ) 02/09/2024 3:18 PM CDT Body Mass Index 18.9 02/09/2024 3:18 PM CDT Plan of Treatment Not on file Care Teams Home Health Clinical Supervisor Relationship Specialty Start Date End Date Pola Chavarria MD PCP - General Internal Medicine 10/28/16
--- OUTSIDE RECORDS SUMMARY | 2024-11-27 16:32 | XMS_ITS | Encounter Summary ---
Author Organization [facility] Address [address] 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
--- OUTSIDE RECORDS SUMMARY | 2024-11-27 16:32 | XMS_ITS | Encounter Summary ---
Author Organization [facility] Address [address] [facility] [address] [place] [address] Phone Care Team Providers Care Lead Sewage Plant Operator Name Role Phone Pola Chavarria MD Primary Care Provider [phone] Encounter Details Date Type Department Care Team (Latest Contact Info) Description 07/05/2022 Orders Only [facility] Soledad Burton RN Social History Tobacco Use Types Packs/Day Years Used Date Smoking Tobacco: Never Assessed Comments Unknown Sex and Gender Information Value Date Recorded Sex Assigned at Not on file 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
--- OUTSIDE RECORDS SUMMARY | 2024-11-27 16:32 | XMS_ITS | Patient Health Summary ---
Author Organization [facility] Address [address] [place] [address] Care Team Providers Care Board Saw Runner Name Role Phone Pola Chavarria MD Primary Care Provider [phone] Note from [facility],non-owned Affiliates and Associated Physician Practices is amultiple site organization consisting of ambulatory clinics and hospital sitesin [place], [place], [place] and [place]. This disclosure is being madepursuant to the Care Everywhere program and may not contain all information available regarding this patient. Last updated 18.[facility] Allergies * Codeine * Codeine(Itching) Medications * [...] to dissolve on the tongue * HYDROcodone-acetaminophen ([place]) 5-325 MG tablet(Started 02/09/2024) Take 1 (one) [...] 02/09/2024) Performed for Fall, initial encounter * [place] DESTRUCT BENIGN LESION, 1-14(Performed 01/19/2021) Performed for Inflamed seborrheic keratosis * CT FACIAL BONES WO CONTRAST(Performed 06/20/2020) Performed for Dog bite of face, initial encounter * CT HEAD WO CONTRAST(Performed 06/20/2020) Performed for Dog bite of face, initial encounter Results * XR SACRUM AND OR COCCYX 92228 (02/09/2024 4:39 PM CDT) Anatomical Region Laterality Modality Spine Computed Radiogr aphy 02/09/2024 4:50 PM CDT Narrative 02/09/2024 4:50 PM CDT PROCEDURE: XR SACRUM AND COCCYX 02/09/2024 4:50 [...] MD on 02/09/2024 4:50 PM Marco Dejesus EXAMINER OF CURRENCY-ENGRAVER STEEL PLATE DIAGNOSTIC GAIL GING ORDERABLES * CT CERVICAL SPINE WO CONTRAST (02/09/2024 4:20 PM CDT) Anatomical Region Laterality Modality Spine Computed Tomogra phy 02/09/2024 4:45 PM CDT Impressions 02/09/2024 4:49 PM CDT IMPRESSION: Stable postoperative changes. No fracture or cord compression. > Interpreting Provider: Sharif Pereira MD on 02/09/2024 4:49 PM Narrative 02/09/2024 4:49 PM CDT PROCEDURE: CT CERVICAL SPINE WO CONTRAST 02/09/2024 [...] Pereira MD on 02/09/2024 4:49 PM Marco Olga Lidia Dejesus EXAMINER OF CURRENCY-ENGRAVER STEEL PLATE CT ORDERABLES * CT HEAD WO CONTRAST [...] PM CDT PROCEDURE: CT HEAD WO CONTRAST 02/09/2024 4:45 [...] Pereira MD on 02/09/2024 4:45 PM Marco Duggan Oleg EXAMINER OF CURRENCY-ENGRAVER STEEL PLATE CT ORDERABLES * [place] DESTRUCT BENIGN LESION, 1-14 (01/19/2021 5:33 PM CDT) Narrative Rancho Pereira MD - 01/19/2021 5:33 PM CDT Kimberlee Musa DO 01/19/2021 5:33 PM Diagnosis and treatment options discussed. Cryotherapy (Liquid Nitrogen) to 1 lesions for 10 seconds each. Number of cycles: 1. Wound care reviewed. Kimberlee Musa DO [facility] Dermatology Resident, PGY-3 Rancho Pereira MD PROCEDURE/MINOR SURG ICAL ORDERABLES * CT FACIAL BONES WO CONTRAST (06/20/2020 4:49 PM CDT) Anatomical Region Laterality Modality Head Computed Tomogra phy 06/20/2020 7:48 PM CDT Impressions 06/21/2020 10:40 AM CDT IMPRESSION: 1. No acute intracranial process. 2. No acute facial bone fractures identified. 3. Bilateral nasal lacerations. Report dictated by Enrique Joe MD (senior vice president). I, Dr. DARREN TREADWELL M.D. have personally reviewed and interpreted this examination/study. This report was electronically signed by DARREN TREADWELL M.D. on 06/21/2020 10:40 AM . Narrative 06/21/2020 10:40 [...] lacerations. Report dictated by Enrique Joe MD (senior vice president). I, Dr. DARREN TREADWELL M.D. have personally reviewed and interpreted this examination/study. This report was electronically signed by DARREN TREADWELL M.D. on 06/21/2020 10:40 AM . Warren Arora MD CT ORDERABLES Care Teams Board Saw Runner Relationship Specialty Start Date End Date Pola Chavarria MD PCP - General Internal Medicine 10/28/16
--- OUTSIDE RECORDS SUMMARY | 2024-11-27 16:32 | XMS_ITS | Data Portability ---
Author Organization [facility], [address] [place] [address] ([place]) Address [address] [address] Assessment Encounter Date Assessment Date Assessment LastModified [...] Portions of this note were documented using Xtone voice recognition technology. If any part of the note appears inaccurate, please contact the author for correction and clarification. [email or web address] Not available 06/13/2024 12:20:21 Plan of Treatment [...] Address Organization Details Recorded Time Seborrheic keratosis 730511563 Active 024 Anni Milligan APRN, ONCOLOGY PHYSICIAN ASSISTANT [address] [place] [address], [phone], [facility] 4 12:19:32 Hemangioma 352478022 Active 024 Anni Milligan APRN, ONCOLOGY PHYSICIAN ASSISTANT [address] [place] [address], [phone], [facility] 4 12:19:34 Problem Notes None recorded. 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 5-7 Times Per Week [email or web address] Information not available 06/06/2024 E-cigarettes Or Vaporization Device? Uses Nicotine Containing Device [email or web address] Information not available 06/06/2024 When Did You Quit Smoking? 2010 [email or web address] Information not available 06/06/2024 Do You Have A Medical Power Of Aircraft Mechanic Structures? Yes [email or web address] Information not available 06/06/2024 What [...] sk in cancer Medical History Condition Response Diabetes N Anxiety Disorder N Bleeding Disorder N Attention-deficit Hyperactivity Disorder N High Blood Pressure N Arthritis N Hyperlipidemia N Cancer N Stroke N Thyroid Problems N Asthma Y Depression N COPD N Skin Problems Anemia N Seizures N Heart Disease N Fibromyalgia N Osteoporosis N Kidney Disease N Gynecological HistoryNo gynecological history recorded. Obstetrics History GPAL:G 0 P 0 0 0 0 Past Encounters Encounter ID Performer Location Encounter Start Date Encounter Closed Date Diagnosis/Indication Diagnosis SNOMED-CT Code Diagnosis ICD10 Code Diagnosis Note [id number] Anni Milligan APRN, ONCOLOGY PHYSICIAN ASSISTANT [facility] ([place]) [address] [place] [phone] 06/13/2024 11:49:31 06/13/2024 12:15:27 Seborrheic keratosis 890881407 L82.1 Hemangioma 484849077 D18 .00 Health Concerns Section Related Observation LastModified by Organization Detai ls LastModified Time None Recorded Concern Status LastModified by Organization Details LastModified Time None Recorded Advance Directives Directive N: Payers Encounter Date Sequence Insurance Name Policy Number Policy Canales Covered Member ID Canales Member ID Guarantor Name 06/13/2024 1 [facility] (MEDICAID HMO) [id number] Aruna Villagran [id number] Aruna Villagran Notes Date Note Type Note [...] of concern checked today. Anni Milligan APRN, ONCOLOGY PHYSICIAN ASSISTANT [address] [place] [address], [phone], [place] [facility] 06/13/2024 14:20:28 OBGyn Episode No OBEpisode recorded.
--- OUTSIDE RECORDS SUMMARY | 2024-11-27 16:32 | XMS_ITS | Clinical Summary ---
Author Organization [facility] [email or web address] Address [address] [place] [address] Care Team Providers Care Repair Technician Name Role Phone Pola Chavarria MD Primary Care Provider [phone] Source Comments [facility] [email or web address],non-[facility] Affiliates and Associated Physician Practices is amultiple site organization consisting of ambulatory clinics and hospital sitesin [place], [place] and [place]. This disclosure is being madepursuant to the Care Everywhere program and may not contain all information available regarding this patient. Last updated 18.[facility] [email or web address] Allergies Active Allergy Reactions Criticality Noted Date [...] tongue 20 tablet 02/09/2024 Active HYDROcodone-acetam inophen ([place]) 5-325 MG tabletIndications: Injury of head, initial [...] Health Maintenance Due Date Last Done Comments EVELIO (AGES 45-75) - COLON CA SCREENING 1978 [...] 2024 09/07/2021, 12/17/2020 INFLUENZA VACCINE (#1) 2024 , 08/19/2021, 07/26/2020, Additional history exists DEPRESSION SCREENING [...] age to complete this topic Care Teams Repair Technician Relationship Specialty Start Date End Date Pola Chavarria MD PCP - General Internal Medicine 10/28/16
--- OUTSIDE RECORDS SUMMARY | 2024-11-27 16:32 | XMS_ITS | Encounter Summary ---
Author Organization [facility] Address [address] [place] [address] Care Team Providers Care Colorist Name Role Phone Unavailable Primary Care Provider [...] on file Legal Sex Female 5:19 AM WELL LOGGING CAPTAIN MUD ANALYSIS Gender Identity Not on file Sexual Orientation Not on file documented as of this encounter Plan of Treatment Not on file documented as of this encounter Visit Diagnoses Diagnosis Dysplasia of cervix (uteri)- Primary documented in this encounter
--- OUTSIDE RECORDS SUMMARY | 2024-11-27 16:32 | XMS_ITS | Encounter Summary ---
Author Organization [facility] Address [address] [place] [address] Phone Care Team Providers Care Ophthalmologist Retina Specialist Name Role Phone Pola Chavarria MD Primary Care Provider Encounter Details Date Type Department Care Team (Late st Contact Info) Description 11/10/2024 Telephone [facility] Cardiology [address] [facility] Advanced Medicine 8th [place] [address] [place] [address] Melita Hilario Social History Tobacco Use Types Packs/Day Years Used Date Smoking Tobacco: Never Assessed Comments Unknown Sex and Gender Information Value Date Recorded Sex Assigned at Not on file Legal Sex Female 3:30 AM DIRECTOR WEIGHTS AND MEASURES Gender Identity Not on file Sexual Orientation Not on file documented as of this encounter Miscellaneous Notes * Telephone Encounter - Suri Ferrer - 11/14/2024 11:41 AM CST Spoke with Telly at [facility] stated will fax over testing and imaging. Sent request for lab work over to the PCP office. CTOR WEIGHTS AND MEASURES * Telephone Encounter - Suri Ferrer - 11/11/2024 3:24 PM CST Sent record and imaging request to [facility] at [phone]. CTOR WEIGHTS AND MEASURES * Telephone Encounter - Melita Hilario - [...] you treated? Have you ever seen a Assistant Clinical Nurse Manager in an office setting? [x] [] [facility]AT LOADER PT WAS SEEN TWO YEARS AGO PT DOES NOT REMEMBER [phone] NO LONGER ACCEPTING INSURANCE COVERAGE IF SCHEDULING [...] where and when was device put in? Cork Tile Floor Layer? ([employer], [employer], [employer]) Appointment Date: 11/14/24 Provider: DIONY Location: [facility] [x] Confirm appt date, time, provider and location. [x] Advise pt to arrive 15- 20 min early. [x] Advise patient to bring medications/list, photo ID and insurance card [] Advise of New Patient Packet being mailed to them. CTOR WEIGHTS AND MEASURES documented in this encounter Plan of Treatment Not on file documented as of this encounter Visit Diagnoses Not on filedocumented in this encounter Care Teams Ophthalmologist Retina Specialist Relationship Specialty Start Date End Date Pola Chavarria MD [address] [place] [address] PCP - General Internal Medicine 11/10/24 documented as of this encounter
--- OUTSIDE RECORDS SUMMARY | 2024-11-27 16:32 | XMS_ITS | Encounter Summary ---
Author Organization [facility] Address [address] [facility] [address] [place] [address] Phone Care Team Providers Care Net Coordinator Name Role Phone Pola Chavarria MD Primary Care Provider [phone] Encounter Details Date Type Department Care Team (Latest Contact Info) Description 11/05/2019 Orders Only [facility] Soledad Burton RN Social History Tobacco Use Types Packs/Day Years Used Date Smoking Tobacco: Never Assessed Comments Unknown Sex and Gender Information Value Date Recorded Sex Assigned at Not on file Legal Sex Female 3:30 AM PRINTED CIRCUIT BOARDS CONTACT PRINTER Gender Identity Not on file Sexual Orientation [...] on filedocumented in this encounter Care Teams Net Coordinator Relationship Specialty Start Date End Date Pola Chavarria MD [address] [place] [address] PCP - General Internal Medicine 11/10/24 documented as of this encounter
--- OUTSIDE RECORDS SUMMARY | 2024-11-27 16:32 | XMS_ITS | Referral Summary ---
Author Organization [facility] Address [address] [place] [address] Care Team Providers Care Secretary To Board Of Commissioners Name Role Phone Pola Chavarria MD Primary Care Provider Encounters Date Type Department Care Team Description 11/14/2024 8:30 AM BLANKET WINDER HELPER Office Visit [facility] Cardiology [address] [facility] [address] [place] [address] Dona Ferguson NP Rapid heart beat (Primary Dx) 11/12/2024 7:25 PM BLANKET WINDER HELPER - 11/12/2024 11:59 PM BLANKET WINDER HELPER Hospital Encounter [facility] [address] [place] [address] Discharge Disposition: Discharge to home or self care 11/10/2024 Telephone [facility] Cardiology [address] [place] [address] for Advanced Medicine 8th [place] [address] [place] [address] Melita Hilario 09/22/2024 Orders Only [facility] Soledad Burton RN from Last 3 Months Allergies Active Allergy Reactions Criticality Noted Date Comments Codeine Itching,Rash Medium 10/28/2016 Medications acyclovir (ZOVIRAX) 400 mg tablet Take 1 tablet (400 mg total) by mouth 2 (two) times a day Active albuterol HFA (PROVENTIL HFA,VENTOLIN HFA,PROAIR HFA) [...] on file Legal Sex Female 3:30 AM BLANKET WINDER HELPER Gender Identity Not on file Sexual Orientation Not on file Last Filed Vital Signs Vital Sign Reading Time Taken Comments Blood Pressure 114/80 11/14/2024 8:34 AM BLANKET WINDER HELPER Pulse 96 11/14/2024 8:34 AM BLANKET WINDER HELPER Temperature - - Respiratory Rate 18 11/14/2024 8:34 AM BLANKET WINDER HELPER Oxygen Saturation 96% 11/14/2024 8:34 AM BLANKET WINDER HELPER Inhaled Oxygen Concentration - - Weight 62 kg (136 lb 9.6 oz) 11/14/2024 8:34 AM BLANKET WINDER HELPER Height 175.3 cm (5' 9 ) 11/14/2024 8:34 AM BLANKET WINDER HELPER Body Mass Index 20.17 11/14/2024 8:34 AM BLANKET WINDER HELPER Plan of Treatment Not on file Procedures Procedure Name Priority Date/Time Associated Diagnosis Comments ECG 12-LEAD Routine 11/14/2024 8:34 AM BLANKET WINDER HELPER Rapid heart beat US TRANSFER OF OUTSIDE FILMS Routine 11/12/2024 7:25 PM BLANKET WINDER HELPER SCAN - LABS 09/22/2024 from Last 3 Months Results * ECG 12 lead (11/14/2024 8:34 AM BLANKET WINDER HELPER) us Dona Ferguson NP ECG ORDERABLES Edited Result - Final * US Outside Reference (11/12/2024 7:25 PM BLANKET WINDER HELPER) Impressions RAD_PACS[facility] - 11/12/2024 7:25 PM BLANKET WINDER HELPER These images are for Reference purposes only and have not been reviewed by [facility]. There will be no report generated by a [facility] Radiologist. Narrative RAD_PACS_[facility] - 11/12/2024 7:25 PM BLANKET WINDER HELPER EXAMINATION: Images For Reference Purposes Only us Kris Braun MD IMG US PROCEDURES Final Resu lt [facility] * SCAN - LABS (09/22/2024) us Soledad Burton RN Final Result from Last 3 Months Insurance [facility] Care Teams Secretary To Board Of Commissioners Relationship Specialty Start Date End Date Pola Chavarria MD [address] [place] [address] PCP - General Internal Medicine 11/10/24
--- OUTSIDE RECORDS SUMMARY | 2024-11-27 16:32 | XMS_ITS | Clinical Summary ---
Author Organization [employer] Address [address] [facility] Attn: Epic Prelude ADT [place] [address] Care Team Providers Care Production Supervisor Name Role Phone Unavailable Primary Care Provider Unavailabl e Social History Tobacco Use Types Packs/Day Years Used Date Smoking Tobacco: Never Assessed Comments Unknown Sex and Gender Information Value Date Recorded Sex Assigned at Not on file Legal Sex Female 5:19 AM CASER SHOE PARTS Gender Identity Not on file Sexual Orientation [...]
--- OUTSIDE RECORDS SUMMARY | 2024-11-27 16:32 | XMS_ITS | Clinical Summary ---
Author Organization [facility] Orthopedic [facility] Address [address] [place] [address] Care Team Providers Care Rail Car Operator Name Role Phone Pola Chavarria MD Primary Care Provider [phone] Allergies Active Allergy Reactions Criticality Noted Date [...] Department Care Team Description 11/14/2024 8:30 AM BRAND COMMUNICATIONS MANAGER Office Visit [facility] Cardiology [address] [facility] [address] [place] [address] Dona Ferguson NP Rapid heart beat (Primary Dx) 11/12/2024 7:25 PM BRAND COMMUNICATIONS MANAGER - 11/12/2024 11:59 PM BRAND COMMUNICATIONS MANAGER Hospital Encounter [facility] [address] [place] [address] Discharge Disposition: Discharge to home or self care 11/10/2024 Telephone [facility] Cardiology [address] [facility] Advanced Medicine 8th [place] [address] [place] [address] Melita Hilario 09/22/2024 Orders Only [facility] Soledad Burton RN from Last 3 Months Social History Tobacco Use Types Packs/Day Years Used Date Smoking Tobacco: Every Day E-cigarettes Smokeless Tobacco: Never Tobacco Cessation:Ready to Q uit: Not Asked; Counseling Given: Not Answered Comments Unknown Sex and Gender Information Value Date Recorded Sex Assigned at Not on file Legal Sex Female 3:30 AM BRAND COMMUNICATIONS MANAGER Gender Identity Not on file Sexual Orientation Not on file Obstetrics History Last Filed Vital Signs Vital Sign Reading Time Taken Comments Blood Pressure 114/80 11/14/2024 8:34 AM BRAND COMMUNICATIONS MANAGER Pulse 96 11/14/2024 8:34 AM BRAND COMMUNICATIONS MANAGER Temperature - - Respiratory Rate 18 11/14/2024 8:34 AM BRAND COMMUNICATIONS MANAGER Oxygen Saturation 96% 11/14/2024 8:34 AM BRAND COMMUNICATIONS MANAGER Inhaled Oxygen Concentration - - Weight 62 kg (136 lb 9.6 oz) 11/14/2024 8:34 AM BRAND COMMUNICATIONS MANAGER Height 175.3 cm (5' 9 ) 11/14/2024 8:34 AM BRAND COMMUNICATIONS MANAGER Body Mass Index 20.17 11/14/2024 8:34 AM BRAND COMMUNICATIONS MANAGER Plan of Treatment Health Maintenance Due Date [...] Comments ECG 12-LEAD Routine 11/14/2024 8:34 AM BRAND COMMUNICATIONS MANAGER Rapid heart beat US TRANSFER OF OUTSIDE FILMS Routine 11/12/2024 7:25 PM BRAND COMMUNICATIONS MANAGER SCAN - LABS 09/22/2024 from Last 3 Months Results * ECG 12 lead (11/14/2024 8:34 AM BRAND COMMUNICATIONS MANAGER) us Dona Ferguson NP ECG ORDERABLES Edited Result - Final * US Outside Reference (11/12/2024 7:25 PM BRAND COMMUNICATIONS MANAGER) Impressions RAD_PACS[facility] - 11/12/2024 7:25 PM BRAND COMMUNICATIONS MANAGER These images are for Reference purposes only and have not been reviewed by [facility] Radiology. There will be no report generated by a [facility] Radiologist. Narrative RAD_PACS_[facility] - 11/12/2024 7:25 PM BRAND COMMUNICATIONS MANAGER EXAMINATION: Images For Reference Purposes Only us Kris Braun MD IMG US PROCEDURES Final Resu lt [facility] * SCAN - LABS (09/22/2024) us Soledad Burton RN Final Result from Last 3 Months Insurance [facility] Care Teams Rail Car Operator Relationship Specialty Start Date End Date Pola Chavarria MD [address] [place] [address] PCP - General Internal Medicine 11/10/24
--- OUTSIDE RECORDS SUMMARY | 2024-11-27 16:32 | XMS_ITS | Clinical Summary ---
Author Organization [facility] Address [address] [place] [address] Care Team Providers Care Human Factors Advisor Lead Name Role Phone Unavailable Primary Care Provider Unavailabl e Social History Tobacco Use Types Packs/Day Years Used Date Smoking Tobacco: Never Assessed Comments Unknown Sex and Gender Information Value Date Recorded Sex Assigned at Not on file Legal Sex Female 1:07 PM FEATHEREDGER AND REDUCER MACHINE Gender Identity Not on file Sexual Orientation [...] 5 season) 2024 Influenza Adult (#1) 2024 Meningococcal B Vaccine Aged Out No l onger eligible based on patient's age to complete this topic Meningococcal Vaccine Aged Out No phoebe quique eligible based [...]
--- OUTSIDE RECORDS SUMMARY | 2024-11-27 16:33 | XMS_ITS | Encounter Summary ---
Author Organization [facility] Address [address] [facility] [address] [place] [address] Phone Care Team Providers Care Exterminator Helper Name Role Phone Pola Chavarria MD Primary Care Provider [phone] Encounter Details Date Type Department Care Team (Latest Contact Info) Description 09/22/2024 Orders Only [facility] Soledad Burton RN Social History Tobacco Use Types Packs/Day Years Used Date Smoking Tobacco: Never Assessed Comments Unknown Sex and Gender Information Value Date Recorded Sex Assigned at Not on file Legal Sex Female 3:30 AM PERINATAL INSTRUCTOR Gender Identity Not on file Sexual Orientation Not on file documented as of this encounter Plan of Treatment Not on file documented as of this encounter Procedures Procedure Name Priority Date/Time Associated Diagnosis Comments SCAN - LABS 09/22/2024 documented in this encounter Results * SCAN - LABS (09/22/2024) Soledad Burton RN Final Result documented in this encounter Visit Diagnoses Not on filedocumented in this encounter Care Teams Exterminator Helper Relationship Specialty Start Date End Date Pola Chavarria MD [address] [place] [address] PCP - General Internal Medicine 11/10/24 documented as of this encounter
--- OUTSIDE RECORDS SUMMARY | 2024-11-27 16:33 | XMS_ITS | Data Portability ---
Author Organization [place] - [facility] [employer], Main Office Address [address] [place] [address] Assessment Encounter Date Assessment Date Assessment LastModified by Organization Details LastModified Time 02/16/2023 02/16/2023 Continue current therapy seems to be doing fine follow-up in 6 months [email or web address] Not available 02/17/2023 22:25:36 09/27/2023 09/27/2023 Will continue current therapy appears to be doing fine clinically blood pressure 98/66 however when we go down on metoprolol heart rate and palpitations increase she has no orthostasis symptoms will continue current therapy and follow-up 6 month Not available 09/27/2023 21:52:54 Plan of Treatment Reminders Order Date Submit Date Provider Last Modified By Organization Details Last Modified Time Details Appointments None recorded . Lab lipid panel, serum 023 02/17/20 [facility] (Lab), [address] [place], [address], 3 11:49:54 CMP, serum or plasma 023 02/17/20 23 [facility] (Lab), [address] [place], [address], 3 11:49:54 Referral None recorded . Procedures [...] 2.070 uIU/m L 0.465- 4.680 Not Available [facility] [place] [facility] (Lab) [address] [place], [address], 02/17/2022 13:46:06 02/18/20 22 02/17/2022 T3 FREE free T3 3.3 pg/mL 2.77-5 .27 Not Available [facility] [place] [facility] (Lab) [address] [place], [address], 02/17/2022 13:45:44 02/18/20 22 02/17/2022 T4 FREE free T4 1.03 NG/dL 0.78-2 .19 Not Available [facility] [place] [facility] (Lab) [address] [place], [address], 02/17/2022 13:45:41 02/18/20 22 02/17/2022 COMPR EHENS HEMA METAB OLIC PANEL carbon dioxide 29 mmol/ L 22-30 Not Available [facility] (Lab) [address] [place], [address], 02/17/2022 13:16:05 02/18/20 22 02/17/2022 COMPR EHENS HEMA METAB OLIC PANEL sodium 137 mmol/ L 137-14 5 Not Available [facility] [place] [facility] (Lab) [address] [place], [address], 02/17/2022 13:16:05 02/18/20 22 02/17/2022 COMPR EHENS HEMA METAB OLIC PANEL potassium 4.7 mmol/ L 3.5-5. 1 Not Available [facility] [place] [facility] (Lab) [address] [place], [address], 02/17/2022 13:16:05 02/18/20 22 02/17/2022 COMPR EHENS HEMA METAB OLIC PANEL chloride 105 mmol/ L 98-107 Not Available [facility] [place] [facility] (Lab) [address] [place], [address], 02/17/2022 13:16:05 02/18/20 22 02/17/2022 COMPR EHENS HEMA METAB OLIC PANEL anion gap 7.7 mmol/ L 14-22 low Not Available [facility] [place] [facility] (Lab) [address] [place], [address], 02/17/2022 13:16:05 02/18/20 22 02/17/2022 COMPR EHENS HEMA METAB OLIC PANEL glucose 87 mg/dL 70-99 Not Available [facility] [place] [facility] (Lab) [address] [place], [address], 02/17/2022 13:16:05 02/18/20 22 02/17/2022 COMPR EHENS HEMA METAB OLIC PANEL BUN 17 mg/dL 8-19 Not Available [facility] [place] [facility] (Lab) [address] [place], [address], 02/17/2022 13:16:05 02/18/20 22 02/17/2022 COMPR EHENS HEMA METAB OLIC PANEL creatinine 0.72 mg/dL 0.66-1 .25 Not Available [facility] [place] [facility] (Lab) [address] [place], [address], 02/17/2022 13:16:05 02/18/20 22 02/17/2022 COMPR EHENS HEMA METAB OLIC PANEL GFR >60 Refer ence Range : [place] ge GFR Healt hy Adult : >60 [...] calcu lator is avail able on the [facility] websi te: https ://ww w.kid jhonatan.o rg/pr ofess ional s/kdo qi/gf r_cal culat or Not Available [facility] [place] [facility] (Lab) [address] [place], [address], 02/17/2022 13:16:05 02/18/20 22 02/17/2022 COMPR EHENS HEMA METAB OLIC PANEL alkaline phosphatase 40 U/L 38-126 Not Available [facility] (Lab) [address] [place], [address], 02/17/2022 13:16:05 02/18/20 22 02/17/2022 COMPR EHENS HEMA METAB OLIC PANEL alanine aminotransfe rase 25 U/L 0-35 Not Available [facility] (Lab) [address] [place], [address], 02/17/2022 13:16:05 02/18/20 22 02/17/2022 COMPR EHENS HEMA METAB OLIC PANEL aspartate aminotransfe rase 30 U/L 15-37 Not Available [facility] (Lab) [address] [place], [address], 02/17/2022 13:16:05 02/18/20 22 02/17/2022 COMPR EHENS HEMA METAB OLIC PANEL bilirubin, total 0.80 mg/dL 0.20-1 .30 Not Available [facility] [place] [facility] (Lab) [address] [place], [address], 02/17/2022 13:16:05 02/18/20 22 02/17/2022 COMPR EHENS HEMA METAB OLIC PANEL calcium 9.6 mg/dL 8.4-10 .2 Not Available [facility] (Lab) [address] [place], [address], 02/17/2022 13:16:05 02/18/20 22 02/17/2022 COMPR EHENS HEMA METAB OLIC PANEL total protein 6.5 g/dL 6.3-8. 2 Not Available [facility] [place] [facility] (Lab) [address] [place], [address], 02/17/2022 13:16:05 02/18/20 22 02/17/2022 COMPR EHENS HEMA METAB OLIC PANEL albumin 4.1 g/dL 3.4-5. 0 Not Available [facility] (Lab) [address] [place], [address], 02/17/2022 13:16:05 02/18/20 22 02/17/2022 COMPR EHENS HEMA METAB OLIC PANEL globulin 2.4 g/dL 2.6-4. 2 low Not Available [facility] [place] [facility] (Lab) [address] [place], [address], 02/17/2022 13:16:05 02/18/20 22 02/17/2022 COMPR EHENS HEMA METAB OLIC PANEL A/G ratio 1.7 ratio 1.0-2. 0 Not Available [facility] [place] [facility] (Lab) [address] [place], [address], 02/17/2022 13:16:05 02/18/20 22 02/17/2022 LIPID PANEL [...] WILL NOT BE REPOR ANÍBAL. Not Available [facility] [place] [facility] (Lab) [address] [place], [address], 02/17/2022 13:15:59 02/18/20 22 02/17/2022 LIPID PANEL cholesterol 151 mg/dL 140-19 9 NIH DENA NSUS RECOM MENDA TION FOR HOLLY STERO L: ADULT CHILD LOW RISK: <200 <170 BORDE RLINE : <200- 239 ----- HIGH RISK: >240 >200 Not Available [facility] [place] [facility] (Lab) [address] [place], [address], 02/17/2022 13:15:59 02/18/20 22 02/17/2022 LIPID PANEL triglyceride s 59 mg/dL 0-150 NIH DENA NSUS REPOR T RECOM MENDA TION FOR TRIGL YCERI KAYY: ADULT CHILD LOW RISK: <150 ----- BODER LINE: 150-1 99 ----- HIGH RISK: >200 ----- Not Available [facility] (Lab) [address] [place], [address], 02/17/2022 13:15:59 02/18/20 22 02/17/2022 LIPID PANEL HDL cholesterol 58 mg/dL 40- Not Available [facility] (Lab) [address] [place], [address], 02/17/2022 13:15:59 02/18/20 22 02/17/2022 PROTI ME W/INR protime 10.8 secon ds 9.5-11 .5 Not Available [facility] [place] [facility] (Lab) [address] [place], [address], 02/17/2022 13:12:02 02/18/20 22 02/17/2022 PROTI ME [...] HOSPH OLIPI D SYNDR OME. Not Available [facility] [place] [facility] (Lab) [address] [place], [address], 02/17/2022 13:12:02 02/18/20 22 02/17/2022 CBC/C OMPLE TE BLD COUNT W/DIF F white blood cells 6.8 x10'3 /uL 4.2-10 .8 Not Available [facility] [place] [facility] (Lab) [address] [place], [address], 02/17/2022 12:45:38 02/18/20 22 02/17/2022 CBC/C OMPLE TE BLD COUNT W/DIF F red blood cells 4.57 x10'6 /uL 3.80-5 .20 Not Available [facility] [place] [facility] (Lab) [address] [place], [address], 02/17/2022 12:45:38 02/18/20 22 02/17/2022 CBC/C OMPLE TE BLD COUNT W/DIF F hemoglobin 14.2 g/dL 12.0-1 5.6 Not Available [facility] [place] [facility] (Lab) [address] [place], [address], 02/17/2022 12:45:38 02/18/20 22 02/17/2022 CBC/C OMPLE TE BLD COUNT W/DIF F hematocrit 43.2 % 35.7-4 5.7 Not Available [facility] [place] [facility] (Lab) [address] [place], [address], 02/17/2022 12:45:38 02/18/20 22 02/17/2022 CBC/C OMPLE TE BLD COUNT W/DIF F mean red cell volume 94.5 fL 82.0-9 9.0 Not Available [facility] [place] [facility] (Lab) [address] [place], [address], 02/17/2022 12:45:38 02/18/20 22 02/17/2022 CBC/C OMPLE TE BLD COUNT W/DIF F mean red cell hemoglobin 31.1 pg 27.0-3 3.0 Not Available [facility] [place] [facility] (Lab) [address] [place], [address], 02/17/2022 12:45:38 02/18/20 22 02/17/2022 CBC/C OMPLE TE BLD COUNT W/DIF F mean RBC HGB concentratio n 32.9 g/dL 31.0-3 6.0 Not Available [facility] [place] [facility] (Lab) [address] [place], [address], 02/17/2022 12:45:38 02/18/20 22 02/17/2022 CBC/C OMPLE TE BLD COUNT W/DIF F red cell distribution width 13.3 % 11.8-1 5.5 Not Available [facility] [place] [facility] (Lab) [address] [place], [address], 02/17/2022 12:45:38 02/18/20 22 02/17/2022 CBC/C OMPLE TE BLD COUNT W/DIF F platelets 273 x10'3 /uL 150-40 0 Not Available [facility] [place] [facility] (Lab) [address] [place], [address], 02/17/2022 12:45:38 02/18/20 22 02/17/2022 CBC/C OMPLE TE BLD COUNT W/DIF F mean platelet volume 9.7 fL 9.0-12 .4 Not Available [facility] [place] [facility] (Lab) [address] [place], [address], 02/17/2022 12:45:38 02/18/20 22 02/17/2022 CBC/C OMPLE TE BLD COUNT W/DIF F neutrophils 64.0 % 39.0-7 2.0 Not Available [facility] (Lab) [address] [place], [address], 02/17/2022 12:45:38 02/18/20 22 02/17/2022 CBC/C OMPLE TE BLD COUNT W/DIF F lymphocytes 21.0 % 16.0-4 7.0 Not Available [facility] [place] [facility] (Lab) [address] [place], [address], 02/17/2022 12:45:38 02/18/20 22 02/17/2022 CBC/C OMPLE TE BLD COUNT W/DIF F monocytes 9.5 % 5.0-12 .0 Not Available [facility] [place] [facility] (Lab) [address] [place], [address], 02/17/2022 12:45:38 02/18/20 22 02/17/2022 CBC/C OMPLE TE BLD COUNT W/DIF F eosinophils 4.1 % 1.0-7. 0 Not Available [facility] [place] [facility] (Lab) [address] [place], [address], 02/17/2022 12:45:38 02/18/20 22 02/17/2022 CBC/C OMPLE TE BLD COUNT W/DIF F basophils 1.0 % 0.0-2. 0 Not Available [facility] [place] [facility] (Lab) [address] [place], [address], 02/17/2022 12:45:38 02/18/20 22 02/17/2022 CBC/C OMPLE TE BLD COUNT W/DIF F immature granulocytes 0.4 % 0.00-0 .50 Not Available [facility] [place] [facility] (Lab) [address] [place], [address], 02/17/2022 12:45:38 02/18/20 22 02/17/2022 CBC/C OMPLE TE BLD COUNT W/DIF F neutrophils, absolute count 4.33 x10'3 /uL 1.5-8. 0 Not Available [facility] [place] [facility] (Lab) [address] [place], [address], 02/17/2022 12:45:38 02/18/20 22 02/17/2022 CBC/C OMPLE TE BLD COUNT W/DIF F immature granulocytes ,absolute 0.03 x10'3 /uL 0.00-0 .05 Not Available [facility] [place] [facility] (Lab) [address] [place], [address], 02/17/2022 12:45:38 02/18/20 22 02/17/2022 CBC/C OMPLE TE BLD COUNT W/DIF F lymphocytes, absolute count 1.42 x10'3 /uL 1.07-3 .43 Not Available [facility] [place] [facility] (Lab) [address] [place], [address], 02/17/2022 12:45:38 02/18/20 22 02/17/2022 CBC/C OMPLE TE BLD COUNT W/DIF F monocytes, absolute count 0.64 x10'3 /uL 0.29-0 .99 Not Available [facility] [place] [facility] (Lab) [address] [place], [address], 02/17/2022 12:45:38 02/18/20 22 02/17/2022 CBC/C OMPLE TE BLD COUNT W/DIF F eosinophils, absolute count 0.28 x10'3 /uL 0.02-0 .53 Not Available [facility] [place] [facility] (Lab) [address] [place], [address], 02/17/2022 12:45:38 02/18/20 22 02/17/2022 CBC/C OMPLE TE BLD COUNT W/DIF F basophils, absolute count 0.07 x10'3 /uL 0.01-0 .08 Not Available [facility] [place] [facility] (Lab) [address] [place], [address], 02/17/2022 12:45:38 02/18/20 22 02/17/2022 CBC/C OMPLE TE BLD COUNT W/DIF F nucleated red blood cells 0.0 % -0 Not Available [facility] (Lab) [address] [place], [address], 02/17/2022 12:45:38 02/18/20 22 02/17/2022 CBC/C OMPLE TE BLD COUNT W/DIF F NRBC# 0.00 x10'3 /uL Not Available [facility] [place] [facility] (Lab) [address] [place], [address], 02/17/2022 12:45:38 01/06/20 22 01/04/2022 rashid VASQUEZ, digit al, bilat eral No observ ation record ed. [id number] [facility] ([facility]) [address] [place] [address], [address], 12/13/2022 03:07:30 07/17/20 22 07/14/2022 arter ial study , lower extre mity, compl ete No observ ation record ed. [id number] [facility] [address], [place], [address], 12/13/2022 03:07:30 01/12/20 23 01/11/2023 rashid VASQUEZ, digit al, bilat eral No observ ation record ed. [email or web address] [address], [address], 02/19/2023 10:52:26 06/26/20 23 04/09/2023 XR, toe(s ) No observ ation record ed. [email or web address] [facility] [address], [place], [address], 08/25/2023 20:17:05 12/21/19 24 12/21/2023 MAMMO , scree yeni, digit al, bilat eral No observ ation record ed. [email or web address] [facility] [address], [place], [address], 01/24/2024 14:09:45 Result Notes None recorded. Problems Name Problem SNOMED Code Status Onset Date Resolution Date Notes Provider Name and Address Organization Details Recorded Time Palpitations 13365615 Active 2022 Pola Chavarria MD [address] [place] [address] [address], [place], [address] , [facility] 3 22:25:25 Cellulitis 207297881 Active Not Available [facility] 3 02:58:58 Acute sinusitis 24541684 Active Not Available [facility] 3 02:58:58 Contact urticaria 77478590 Active Not Available [facility] 3 02:58:58 Asthma 053155807 Active Not Available [facility] 3 02:58:58 Low back pain 517720382 Active Not Available [facility] 3 02:58:59 Acute urticaria 839140735 Active Not Available [facility] 3 02:58:59 Easy bruising 836952847 Active 2021 Not Available [facility] 3 02:58:59 Sacral back pain 53469162 Active Not Available [facility] 3 02:58:59 Urinary tract infectious disease 05478109 Active Not Available [employer] 3 02:58:59 Rhinitis 55605663 Active Not Available [facility] 3 02:58:59 Fatigue 36603905 Active 2021 Not Available [employer] 3 02:58:59 Problem Notes None recorded. Procedures Surgical History Date Name Laterality Status Provider Name and Address Organization Details Recorded Time 03/08/20 Disc replacement surgery completed Not Available [facility] 12/13/2022 02:51:32 lumbar spinal fusion completed Not Available [facility] 12/13/2022 02:51:32 Breast augmentation w/implt completed Not Available [facility] 12/13/2022 02:51:32 Disc replacement surgery completed Not Available [facility] 12/13/2022 02:51:32 Imaging Results Imaging Date Name Status LastModified by Organiz ation Details LastModified Time 01/04/2022 MAMMO, screening, digital, bilateral completed [id number] [facility] (Imaging) [address] [place] [address], [address], 12/13/2022 03:07:30 07/14/2022 arterial study, lower extremity, complete completed [id number] [facility] [address], [place], [address], 12/13/2022 03:07:30 01/11/2023 MAMMO, screening, digital, bilateral completed [email or web address] [address], [address], 02/19/2023 10:52:26 04/09/2023 XR, toe(s) completed [email or web address] [address], [address], 08/25/2023 20:17:05 12/21/2023 MAMMO, screening, digital, bilateral completed [email or web address] [address], [address], 01/24/2024 14:09:45 Procedure Notes None recorded. Medical Equipment None Reported. Allergies Allergen ID Allergen Name Allergen Category Reaction Reaction Severity Criticality Documentation Date Start Date Code Code System Note Provider Name and Address Organization Details Recorded Time 5143 codeine medicatio n Not available Not available Not available 12/13/2022 2670 RxNorm Not Available [facility] 03:07:05 Medications Name Sig Start Date Stop [...] height Body mass index (BMI) Body weight Body temperature Heart rate Systolic blood pressure Diastolic blood pressure Provider Name and Address Organization Details Last Updated DateTime 3 172.72 cm 19.5 kg/m2 77860.8 2 g 97.5 [degF] 60 /min 118 mm[Hg] 72 mm[Hg] YANNI Kruger [facility] [employer] [facility] 3 09:59:08 Date Recorded Body height Body mass index (BMI) Body weight Body temperature Heart rate Oxygen saturation Oxygen saturation in Arterial blood by Pulse oximetry Systolic blood pressure Diastolic blood pressure Provider Name and Address Organization Details Last Updated DateTime 3 172.72 cm 19.5 kg/m2 20270.8 2 g 97.2 [degF] 70 /min 98 % 98 % 98 mm[Hg] 66 mm[Hg] Keya mark CMA [facility] [employer] [facility] 3 15:37:32 Date Recorded Body mass index (BMI) Body mass index (BMI) Body mass index (BMI) Body height Body height Body height Heart rate Heart rate Heart rate Body temperature Body temperature Body temperature Body weight Body weight Body weight Systolic blood pressure Diastolic blood pressure Systolic blood pressure Diastolic blood pressure Systolic blood pressure Diastolic blood pressure Provider Name and Address Organization Details Last Updated DateTime 3 21.6 kg/m2 19.9 kg/m2 19.5 kg/m2 172.72 cm 172.72 cm 172.72 cm 80 /min 64 /min 60 /min 97.6 [degF] 97.5 [degF] 97.9 [degF] 08068.1 2 g 66163.6 g 37779.8 2 g 120 mm[Hg] 80 mm[Hg] 100 mm[Hg] 70 mm[Hg] 110 mm[Hg] 68 mm[Hg] Not Available [employer] 3 02:57:24 Social History Question Answer Notes LastModified by Organizat ion Details LastModified Time Tobacco Smoking Status Former Smoker quit 2012 Aliyah johnston [facility] [employer] [facility] 02/16/2023 09:50:07 Do You Have An Advance Directive? No [id number] Information not available 12/13/2022 What Is Your Level Of Alcohol Consumption? Moderate [id number] Information not available 12/13/2022 What Is Your Level Of Caffeine Consumption? Occasional [id number] Information not available 12/13/2022 How Much Tobacco Do You Chew? None [id number] Information not available 12/13/2022 In The 14 [...] Type Of Diet Are You Following? REGULAR [id number] Information not available 12/13/2022 Which Illicit Or Recreational Drugs Have You Used? None Information not available 02/16/2023 Do You Or Have You Ever Used E-cigarettes Or Vape? Current User Of Electronic Cigarettes Information not available 02/16/2023 What Is The Highest Grade Or Level Of School You Have Completed Or The Highest Degree You Have Received? 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 No Information not available 02/16/2023 Are There Any Guns Present In Your Home? No Information not available 02/16/2023 Do You Use Insect Repellent Routinely? Yes Information not available 02/16/2023 Where Do You Live? [facility] Information not available 02/16/2023 Do You Have A Medical Power Of Tray Drier Operator? No Information not available 02/16/2023 What Was The Date Of Your Most Recent Tobacco Screening? 02/16/2023 [email or web address] Information not available 02/16/2023 Do You Have Any Pets? Yes Information not available 02/16/2023 What Is Your Relationship Status? Single [id number] Information not available 12/13/2022 Do You Have Smoke And Carbon Monoxide Detectors In Your Home? Yes Information not available 02/16/2023 Are You Passively Exposed To Smoke? No Information not available 02/16/2023 Do You Or Have You Ever Used Smokeless Tobacco? Never Used Smokeless Tobacco [id number] Information not available 12/13/2022 Are There Any Smokers In Your House? No Information not available 02/16/2023 How Much Tobacco Do You Smoke? No [id number] Information not available 12/13/2022 Do You Feel Stressed (tense, Restless, Nervous, Or Anxious, Or Unable To Sleep At Night)? [id number] Information not available 02/16/2023 Do You Use [...] Time What is your exercise level? None [id number] Information not available 12/13/2022 Mental Status None recorded. Family History Relationship Description Onset Age of this Age Resolved Age Notes LastModified by Organization Details LastModified Time Maternal Grandmother Malignant tumor of breast [id number] Not available 12/13/2022 02:51:38 Mother General health good [id number] Not available 12/13/2022 02:51:38 Father Cerebrovascu lar accident [id number] Not available 12/13/2022 02:51:38 Medical History Condition Response NERVE DISEASE N BLINDNESS N RHEUMATIC FEVER N KIDNEY STONES N BLADDER PROBLEMS N OTHER # 1 N POLIO N LUNG DISEASE/DISORDER N COPD N RADIATION / CHEMOTHERAPY N Other # 2 N BLOOD DISEASES N SURGERY N EAR OR HEARING PROBLEMS N MUMPS N DEPRESSION (INCLUDING POST ) N BOWEL PROBLEMS N STROKE/TIA N ULCERS N BENIGN PROSTATIC [...] N CHRONIC PAIN SYNDROME N HYPOTHYROIDISM N CAROTID BLOCKAGE N CONSTIPATION N BACK / NECK PROBLEMS Y HAVE YOU BEEN HOSPITALIZED OR SEEN IN [facility] IN THE PAST YEAR ? N ATHEROSCLEROSIS [...] virus, quadrivalent, preservative 9 completed Not Available [facility] 12/13/2022 03:06:55 COVID-19 vaccine, vector-nr, rS-Ad26, PF, 0.5 mL 1 completed Keya Dennison CMA null, [place] [employer] [facility] [employer] [facility] 09/27/2023 15:38:10 Influenza, split virus, trivalent, preservative 4 completed Keya Dennison CMA null, [employer] [facility] [employer] [facility] 09/27/2023 15:38:10 Influenza, split virus, trivalent, preservative 3 completed Not Available [facility] 12/13/2022 03:06:55 Influenza, split virus, quadrivalent, PF 11/04/202 2 completed Not Available [facility] 12/13/2022 03:06:55 Influenza, split virus, quadrivalent, PF 1 completed Not Available [facility] 12/13/2022 03:06:56 Influenza, split virus, quadrivalent, PF 0 completed Not Available [facility] 12/13/2022 03:06:56 Influenza, MDCK, quadrivalent, PF 8 completed Not Available [facility] 12/13/2022 03:06:56 Influenza, split virus, trivalent, PF 4 completed Keya Dennison CATHETERIZATION LABORATORY TECHNICIAN null, [place] [facility] 09/27/2023 15:38:10 Influenza, split virus, trivalent, preservative 3 completed Keya Dennison CATHETERIZATION LABORATORY TECHNICIAN null, [employer] - [facility] [place] [employer] [facility] 09/27/2023 15:38:10 Past Encounters Encounter ID Performer Location Encounter Start Date Encounter Closed Date Diagnosis/Indication Diagnosis SNOMED-CT Code Diagnosis ICD10 Code Diagnosis Note [id number] [facility] [address] [place] [address] Ave[address] [address] 12/31/2020 00:00:00 12/31/2020 17:25:48 [id number] [facility] [address] [place], [place] [address]e., [address] [address] [address] 04/29/2021 00:00:00 04/30/2021 09:48:54 [id number] [facility] [address] [place] [address] Ave[address] [address] 08/19/2021 00:00:00 08/28/2021 21:47:04 [id number] [facility] [address] [place] [address] Ave[address] [address] 02/17/2022 00:00:00 02/17/2022 23:05:50 [id number] [facility] [place] [address] [place] [address] Ave[address] [address] 08/18/2022 00:00:00 09/10/2022 20:09:13 [id number] Pola Chavarria MD [facility] Internal Med [facility] [address], [place] [address] [place] [address] 02/16/2023 09:49:37 02/16/2023 10:57:03 Asthma [id number] J45.909 Screening for cardiovascular system disease [id number] Z13.6 Palpitations [id number] R0 0.2 [id number] Pola Chavarria MD [facility] Internal Med [facility] [address] [facility] [place] [address] 09/27/2023 15:28:06 09/27/2023 16:40:26 Asthma [id number] J45.909 Palpitations [id number] R0 0.2 Rhinitis [id number] J00 Health Concerns Section Related Observation LastModified by Organization Detai ls LastModified Time None Recorded Concern Status LastModified by Organization Details LastModified Time None Recorded Advance Directives Directive N: Payers Encounter Date Sequence Insurance Name Policy Number Policy Canales Covered Member ID Canales Member ID Guarantor Name 02/16/2023 1 [facility] (MEDICAID HMO) [id number] Chaparrita Villagran [id number] Chaparrita Villagran 09/27/2023 1 [facility] (MEDICAID HMO) [id number] Chaparrita Villagran [id number] Chaparrita Villagran Notes Date Note Type Note Provider Name and Address Organization Details Recorded Time 02/16/2023 text/html Asthma doing fin e and no rescue inhaler usePalpitations doing great tolerating the beta-blockerLow back pain stable Pola Chavarria MD [address], [place], [address], [employer] 02/17/2023 22:25:59 09/27/2023 text/html Palpitations hav e been doing fine asthma has not been decompensated she is holding off on getting into more coronavirus shots and is not interested in RSVP but will consider fluid Pola Chavarria MD [address], [place], [address], [employer] 09/27/2023 21:53:23 OBGyn Episode No OBEpisode recorded.
== END 2024-11-27 16:29 | disposition home or self-care (01) ==
PROVIDERS: PCP Internal Medicine; Visit Provider Obstetrics & Gynecology Gynecology
DX: T83.32XA Displacement of intrauterine contraceptive device, initial encounter (principal)
CPT/HCPCS: 76856

== ENCOUNTER 2025-03-18 14:01 | Outpatient (CLI) | payer OTHER, SELFPAY ==
--- NOTE | ~2025-03-18 | MM_ITS ---
EXAMINATION: MM scrn marlene implant BI w radha INDICATION: Asymptomatic, referred for screening mammogram COMPARISON: 12/21/2023 through 12/18/2019 TECHNIQUE: Digital Breast Tomosynthesis CC, MLO, and implant displaced CC and MLO views of Both breas ts were obtained with computer-aided detection to assist in interpretation of the study. FINDINGS: There are scattered areas of fibroglandular density. Bilateral breast retropectoral silicone implants in place appears intact. No focal dominant mass, architectural distortion, or suspicious microcalcifications are identified. There are no features to suggest malignancy. IMPRESSION: 1. No evidence of malignancy in the breasts. 2. Both breasts retropectoral silicone implants appears intact. Recommend continued screening mammography BI-RADS 1, NEGATIVE Reviewed, dictated and finalized at location B.
--- OUTSIDE RECORDS SUMMARY | 2025-03-18 14:12 | XMS_ITS | Data Portability ---
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 sta ble she has had some fatigue nonspecific chronic back pain has been flared up a little bit lately does have a history of back surgery. Asthma no flare-ups Denice Chavarria MD Attn: Accounting, [address] [place], [address], [facility] 09/20/2024 17:05:42 OBGyn Episode No OBEpisode recorded.
--- OUTSIDE RECORDS SUMMARY | 2025-03-18 14:12 | XMS_ITS | Encounter Summary ---
Author Organization 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
--- OUTSIDE RECORDS SUMMARY | 2025-03-18 14:13 | XMS_ITS | Data Portability ---
Author Organization [facility], [address] [place] [address] ([place]) Address [address] [address] Assessment Encounter Date Assessment Date Assessment LastModified [...] Portions of this note were documented using Dpivision voice recognition technology. If any part of the note appears inaccurate, please contact the author for correction and clarification. [email or web address] Not available 06/13/2024 12:20:21 Plan of Treatment [...] Address Organization Details Recorded Time Seborrheic keratosis 759484823 Active 024 Anni Milligan APRN, TACTICAL DECEPTION PLANS OFFICER [address] [place] [address], [phone], [facility] 4 12:19:32 Hemangioma 656833284 Active 024 Anni Milligan APRN, TACTICAL DECEPTION PLANS OFFICER [address] [place] [address], [phone], [facility] 4 12:19:34 Problem Notes None [...] Updated DateTime 06/13/2024 175.26 cm 19.5 kg/m2 39262.19 g Gabi Cox [place] 06/13/2024 12:05:29 Social History Question Answer Notes [...] Do You Have A Medical Power Of Cloth Stretcher? Yes [email or web address] Information not available 06/06/2024 What [...] LastModified by Organizat ion Details LastModified Time How many times per week do you consume alcohol? Less than 1 time per week [email or web address] Information not available 06/06/2024 Do you use any illicit or recreational drugs? No [email or web address] Information not available 06/06/2024 What is your level of alcohol consumption? Occasional [email or web address] Information not available 06/06/2024 Are you currently employed? Yes [email or web address] Information not available 06/06/2024 What is your occupation? [employer] [email or web address] Information not available 06/06/2024 What is your exercise level? Heavy [email or web address] [...] SNOMED-CT Code Diagnosis ICD10 Code Diagnosis Note [id number] Anni Milligan, SULMA, [facility] ([place]) [address] [place] [phone] 06/13/2024 11:49:31 06/13/2024 12:15:27 Seborrheic keratosis 818407171 L82.1 Hemangioma 380167998 D18 .00 Health Concerns Section Related Observation LastModified by Organization Detai ls LastModified Time None Recorded Concern Status LastModified by Organization Details LastModified Time None Recorded Advance Directives Directive N: Payers Insurance Date Sequence Insurance Name Policy Number Policy Canales Covered Member ID Canales Member ID Guarantor Name 06/13/2024 1 [place] [facility] Aruna Villagran [id number] Aruna Villagran 06/13/2024 1 [facility] (MEDICAID HMO) [id number] Aruna Villagran [id number] Aruna Villagran Notes Date Note Type Note [...] the areas of concern checked today. Anni Milligan, SOLUTIONS CONSULTANT, TACTICAL DECEPTION PLANS OFFICER [address] [place] [address], [phone], [facility] 06/13/2024 14:20:28 OBGyn Episode No OBEpisode recorded.
--- OUTSIDE RECORDS SUMMARY | 2025-03-18 14:13 | XMS_ITS | Data Portability ---
Author Organization [place] - [facility] [employer], Main Office Address [address] [place] [address] Assessment Encounter Date Assessment Date Assessment LastModified by Organization Details LastModified Time 02/16/2023 02/16/2023 Continue current therapy seems to be doing fine follow-up in 6 months [email or web address] Not available 02/17/2023 22:25:36 09/27/2023 09/27/2023 Will [...] . Lab lipid panel, serum 023 02/17/20 [facility] (Lab), [address] [place], [address], 3 11:49:54 CMP, serum or plasma 023 02/17/20 23 [facility] (Lab), [address] [place], [address], 3 11:49:54 Referral None recorded . Procedures [...] 2.070 uIU/m L 0.465- 4.680 Not Available [facility] (Lab) [address] [place], [address], 02/17/2022 13:46:06 02/18/20 22 02/17/2022 T3 FREE free T3 3.3 pg/mL 2.77-5 .27 Not Available [facility] (Lab) [address] [place], [address], 02/17/2022 13:45:44 02/18/20 22 02/17/2022 T4 FREE free T4 1.03 NG/dL 0.78-2 .19 Not Available [facility] (Lab) [address] [place], [address], 02/17/2022 13:45:41 02/18/20 22 02/17/2022 COMPR EHENS HEMA METAB OLIC PANEL carbon dioxide 29 mmol/ L 22-30 Not Available [facility] (Lab) [address] [place], [address], 02/17/2022 13:16:05 02/18/20 22 02/17/2022 COMPR EHENS HEMA METAB OLIC PANEL sodium 137 mmol/ L 137-14 5 Not Available [facility] (Lab) [address] [place], [address], 02/17/2022 13:16:05 02/18/20 22 02/17/2022 COMPR EHENS HEMA METAB OLIC PANEL potassium 4.7 mmol/ L 3.5-5. 1 Not Available [facility] (Lab) [address] [place], [address], 02/17/2022 13:16:05 02/18/20 22 02/17/2022 COMPR EHENS HEMA METAB OLIC PANEL chloride 105 mmol/ L 98-107 Not Available [facility] (Lab) [address] [place], [address], 02/17/2022 13:16:05 02/18/20 22 02/17/2022 COMPR EHENS HEMA METAB OLIC PANEL anion gap 7.7 mmol/ L 14-22 low Not Available [facility] (Lab) [address] [place], [address], 02/17/2022 13:16:05 02/18/20 22 02/17/2022 COMPR EHENS HEMA METAB OLIC PANEL glucose 87 mg/dL 70-99 Not Available [facility] (Lab) [address] [place], [address], 02/17/2022 13:16:05 02/18/20 22 02/17/2022 COMPR EHENS HEMA METAB OLIC PANEL BUN 17 mg/dL 8-19 Not Available [facility] (Lab) [address] [place], [address], 02/17/2022 13:16:05 02/18/20 22 02/17/2022 COMPR EHENS HEMA METAB OLIC PANEL creatinine 0.72 mg/dL 0.66-1 .25 Not Available [facility] (Lab) [address] [place], [address], 02/17/2022 13:16:05 02/18/20 22 02/17/2022 COMPR EHENS HEMA METAB OLIC PANEL GFR >60 Refer ence Range : [place] ge GFR Healt hy Adult : >60 [...] calcu lator is avail able on the [facility] websi te: https ://ww w.kid jhonatan.o rg/pr ofess ional s/kdo qi/gf r_cal culat or Not Available [facility] (Lab) [address] [place], [address], 02/17/2022 13:16:05 02/18/20 22 02/17/2022 COMPR EHENS HEMA METAB OLIC PANEL alkaline phosphatase 40 U/L 38-126 Not Available [facility] (Lab) [address] [place], [address], 02/17/2022 13:16:05 02/18/20 22 02/17/2022 COMPR EHENS HEMA METAB OLIC PANEL alanine aminotransfe rase 25 U/L 0-35 Not Available [facility] (Lab) [address] [place], [address], 02/17/2022 13:16:05 02/18/20 22 02/17/2022 COMPR EHENS HEMA METAB OLIC PANEL aspartate aminotransfe rase 30 U/L 15-37 Not Available [facility] (Lab) [address] [place], [address], 02/17/2022 13:16:05 02/18/20 22 02/17/2022 COMPR EHENS HEMA METAB OLIC PANEL bilirubin, total 0.80 mg/dL 0.20-1 .30 Not Available [facility] (Lab) [address] [place], [address], 02/17/2022 13:16:05 02/18/20 22 02/17/2022 COMPR EHENS HEMA METAB OLIC PANEL calcium 9.6 mg/dL 8.4-10 .2 Not Available [facility] (Lab) [address] [place], [address], 02/17/2022 13:16:05 02/18/20 22 02/17/2022 COMPR EHENS HEMA METAB OLIC PANEL total protein 6.5 g/dL 6.3-8. 2 Not Available [facility] (Lab) [address] [place], [address], 02/17/2022 13:16:05 02/18/20 22 02/17/2022 COMPR EHENS HEMA METAB OLIC PANEL albumin 4.1 g/dL 3.4-5. 0 Not Available [facility] (Lab) [address] [place], [address], 02/17/2022 13:16:05 02/18/20 22 02/17/2022 COMPR EHENS HEMA METAB OLIC PANEL globulin 2.4 g/dL 2.6-4. 2 low Not Available [facility] (Lab) [address] [place], [address], 02/17/2022 13:16:05 02/18/20 22 02/17/2022 COMPR EHENS HEMA METAB OLIC PANEL A/G ratio 1.7 ratio 1.0-2. 0 Not Available [facility] (Lab) [address] [place], [address], 02/17/2022 13:16:05 02/18/20 22 02/17/2022 LIPID PANEL [...] WILL NOT BE REPOR ANÍBAL. Not Available [facility] (Lab) [address] [place], [address], 02/17/2022 13:15:59 02/18/20 22 02/17/2022 LIPID PANEL cholesterol 151 mg/dL 140-19 9 NIH DENA NSUS RECOM MENDA TION FOR HOLLY STERO L: ADULT CHILD LOW RISK: <200 <170 BORDE RLINE : <200- 239 ----- HIGH RISK: >240 >200 Not Available [facility] (Lab) [address] [place], [address], 02/17/2022 13:15:59 02/18/20 22 02/17/2022 LIPID PANEL triglyceride s 59 mg/dL 0-150 NIH DENA NSUS REPOR T RECOM MENDA TION FOR TRIGL YCERI KAYY: ADULT CHILD LOW RISK: <150 ----- BODER LINE: 150-1 99 ----- HIGH RISK: >200 ----- Not Available [facility] (Lab) [address] [place], [address], 02/17/2022 13:15:59 02/18/20 22 02/17/2022 LIPID PANEL HDL cholesterol 58 mg/dL 40- Not Available [facility] (Lab) [address] [place], [address], 02/17/2022 13:15:59 02/18/20 22 02/17/2022 PROTI ME W/INR protime 10.8 secon ds 9.5-11 .5 Not Available [facility] (Lab) [address] [place], [address], 02/17/2022 13:12:02 02/18/20 22 02/17/2022 PROTI ME W/INR INR 1.0 INR INDIC ATION S 2.0 - 3.0 PROPH YLAXI S: VENOU S THROM BOSIS (HIGH RISK SURGE RY) AND SYSTE DENAN EMBOL ISM (TISS UE HEART VALVE S, [...] HOSPH OLIPI D SYNDR OME. Not Available [facility] (Lab) [address] [place], [address], 02/17/2022 13:12:02 02/18/20 22 02/17/2022 CBC/C OMPLE TE BLD COUNT W/DIF F white blood cells 6.8 x10'3 /uL 4.2-10 .8 Not Available [facility] (Lab) [address] [place], [address], 02/17/2022 12:45:38 02/18/20 22 02/17/2022 CBC/C OMPLE TE BLD COUNT W/DIF F red blood cells 4.57 x10'6 /uL 3.80-5 .20 Not Available [facility] (Lab) [address] [place], [address], 02/17/2022 12:45:38 02/18/20 22 02/17/2022 CBC/C OMPLE TE BLD COUNT W/DIF F hemoglobin 14.2 g/dL 12.0-1 5.6 Not Available [facility] (Lab) [address] [place], [address], 02/17/2022 12:45:38 02/18/20 22 02/17/2022 CBC/C OMPLE TE BLD COUNT W/DIF F hematocrit 43.2 % 35.7-4 5.7 Not Available [facility] (Lab) [address] [place], [address], 02/17/2022 12:45:38 02/18/20 22 02/17/2022 CBC/C OMPLE TE BLD COUNT W/DIF F mean red cell volume 94.5 fL 82.0-9 9.0 Not Available [facility] (Lab) [address] [place], [address], 02/17/2022 12:45:38 02/18/20 22 02/17/2022 CBC/C OMPLE TE BLD COUNT W/DIF F mean red cell hemoglobin 31.1 pg 27.0-3 3.0 Not Available [facility] (Lab) [address] [place], [address], 02/17/2022 12:45:38 02/18/20 22 02/17/2022 CBC/C OMPLE TE BLD COUNT W/DIF F mean RBC HGB concentratio n 32.9 g/dL 31.0-3 6.0 Not Available [facility] (Lab) [address] [place], [address], 02/17/2022 12:45:38 02/18/20 22 02/17/2022 CBC/C OMPLE TE BLD COUNT W/DIF F red cell distribution width 13.3 % 11.8-1 5.5 Not Available [facility] (Lab) [address] [place], [address], 02/17/2022 12:45:38 02/18/20 22 02/17/2022 CBC/C OMPLE TE BLD COUNT W/DIF F platelets 273 x10'3 /uL 150-40 0 Not Available [facility] (Lab) [address] [place], [address], 02/17/2022 12:45:38 02/18/20 22 02/17/2022 CBC/C OMPLE TE BLD COUNT W/DIF F mean platelet volume 9.7 fL 9.0-12 .4 Not Available [facility] (Lab) [address] [place], [address], 02/17/2022 12:45:38 02/18/20 22 02/17/2022 CBC/C OMPLE TE BLD COUNT W/DIF F neutrophils 64.0 % 39.0-7 2.0 Not Available [facility] (Lab) [address] [place], [address], 02/17/2022 12:45:38 02/18/20 22 02/17/2022 CBC/C OMPLE TE BLD COUNT W/DIF F lymphocytes 21.0 % 16.0-4 7.0 Not Available [facility] (Lab) [address] [place], [address], 02/17/2022 12:45:38 02/18/20 22 02/17/2022 CBC/C OMPLE TE BLD COUNT W/DIF F monocytes 9.5 % 5.0-12 .0 Not Available [facility] (Lab) [address] [place], [address], 02/17/2022 12:45:38 02/18/20 22 02/17/2022 CBC/C OMPLE TE BLD COUNT W/DIF F eosinophils 4.1 % 1.0-7. 0 Not Available [facility] (Lab) [address] [place], [address], 02/17/2022 12:45:38 02/18/20 22 02/17/2022 CBC/C OMPLE TE BLD COUNT W/DIF F basophils 1.0 % 0.0-2. 0 Not Available [facility] (Lab) [address] [place], [address], 02/17/2022 12:45:38 02/18/20 22 02/17/2022 CBC/C OMPLE TE BLD COUNT W/DIF F immature granulocytes 0.4 % 0.00-0 .50 Not Available [facility] (Lab) [address] [place], [address], 02/17/2022 12:45:38 02/18/20 22 02/17/2022 CBC/C OMPLE TE BLD COUNT W/DIF F neutrophils, absolute count 4.33 x10'3 /uL 1.5-8. 0 Not Available [facility] (Lab) [address] [place], [address], 02/17/2022 12:45:38 02/18/20 22 02/17/2022 CBC/C OMPLE TE BLD COUNT W/DIF F immature granulocytes ,absolute 0.03 x10'3 /uL 0.00-0 .05 Not Available [facility] (Lab) [address] [place], [address], 02/17/2022 12:45:38 02/18/20 22 02/17/2022 CBC/C OMPLE TE BLD COUNT W/DIF F lymphocytes, absolute count 1.42 x10'3 /uL 1.07-3 .43 Not Available [facility] (Lab) [address] [place], [address], 02/17/2022 12:45:38 02/18/20 22 02/17/2022 CBC/C OMPLE TE BLD COUNT W/DIF F monocytes, absolute count 0.64 x10'3 /uL 0.29-0 .99 Not Available [facility] (Lab) [address] [place], [address], 02/17/2022 12:45:38 02/18/20 22 02/17/2022 CBC/C OMPLE TE BLD COUNT W/DIF F eosinophils, absolute count 0.28 x10'3 /uL 0.02-0 .53 Not Available [facility] (Lab) [address] [place], [address], 02/17/2022 12:45:38 02/18/20 22 02/17/2022 CBC/C OMPLE TE BLD COUNT W/DIF F basophils, absolute count 0.07 x10'3 /uL 0.01-0 .08 Not Available [facility] (Lab) [address] [place], [address], 02/17/2022 12:45:38 02/18/20 22 02/17/2022 CBC/C OMPLE TE BLD COUNT W/DIF F nucleated red blood cells 0.0 % -0 Not Available [facility] (Lab) [address] [place], [address], 02/17/2022 12:45:38 02/18/20 22 02/17/2022 CBC/C OMPLE TE BLD COUNT W/DIF F NRBC# 0.00 x10'3 /uL Not Available [facility] (Lab) [address] [place], [address], 02/17/2022 12:45:38 01/06/20 22 01/04/2022 rashid VASQUEZ, digit al, bilat eral No observ ation record ed. [id number] [facility] ([facility]) [address] [place] [address], [address], 12/13/2022 03:07:30 07/17/20 22 07/14/2022 arter ial study , lower extre mity, compl ete No observ ation record ed. [id number] [facility] [address], [place], [address], 12/13/2022 03:07:30 01/12/20 23 01/11/2023 rashid VASQUEZ, digit al, bilat eral No observ ation record ed. [email or web address] [address], [address], 02/19/2023 10:52:26 06/26/20 23 04/09/2023 XR, toe(s ) No observ ation record ed. [email or web address] [facility] [address] [facility] [address], [place], [address], 08/25/2023 20:17:05 12/21/19 24 12/21/2023 MAMMO , scree yeni, digit al, bilat eral No observ ation record ed. [email or web address] [facility] [address] [facility] [address], [place], [address], 01/24/2024 14:09:45 Result Notes None recorded. Problems Name Problem SNOMED Code Status Onset Date Resolution Date Notes Provider Name and Address Organization Details Recorded Time Palpitations 20071684 Active 2022 Pola Chavarria MD [address] [place] [address] [address], [place], [address] , [facility] 3 22:25:25 Cellulitis 608973244 Active Not Available [facility] 3 02:58:58 Acute sinusitis 56498745 Active Not Available [facility] 3 02:58:58 Contact urticaria 98938417 Active Not Available [facility] 3 02:58:58 Asthma 531576337 Active Not Available [facility] 3 02:58:58 Low back pain 130483718 Active Not Available [facility] 3 02:58:59 Acute urticaria 999296440 Active Not Available [facility] 3 02:58:59 Easy bruising 648295714 Active 2021 Not Available [facility] 3 02:58:59 Sacral back pain 01596885 Active Not Available [facility] 3 02:58:59 Urinary tract infectious disease 42926079 Active Not Available [employer] 3 02:58:59 Rhinitis 44235483 Active Not Available [facility] 3 02:58:59 Fatigue 49814707 Active 2021 Not Available [employer] 3 02:58:59 Problem Notes None recorded. Procedures Surgical History Date Name Laterality Status Provider Name and Address Organization Details Recorded Time 03/08/20 21 Disc replacement surgery completed Not Available [facility] 12/13/2022 02:51:32 lumbar spinal fusion completed Not Available [facility] 12/13/2022 02:51:32 Breast augmentation w/implt completed Not Available [facility] 12/13/2022 02:51:32 Disc replacement surgery completed Not Available [facility] 12/13/2022 02:51:32 Imaging Results None recorded. Procedure Notes None recorded. Medical Equipment None Reported. Allergies Allergen ID Allergen Name Allergen Category Reaction Reaction Severity Criticality Documentation Date Start Date Code Code System Note Provider Name and Address Organization Details Recorded Time 5143 codeine medicatio n Not available Not available Not available 12/13/2022 2670 RxNorm Not Available [facility] 03:07:05 Medications Name Sig Start Date Stop [...] BY MOUTH TWICE DAILY NEEDED FOR PAIN 07/16 /2021 completed Not Available Not Available Not Available [...] Updated DateTime 3 172.72 cm 19.5 kg/m2 06119.8 2 g 97.5 [degF] 60 /min 118 mm[Hg] 72 mm[Hg] YANNI Kruger [facility] 3 09:59:08 Date Recorded Body mass index (BMI) Body height Heart rate Body temperature Body weight Systolic blood pressure Diastolic blood pressure Provider Name and Address Organization Details Last Updated DateTime 2 19.9 kg/m2 172.72 cm 64 /min 97.5 [degF] 67410.6 g 100 mm[Hg] 70 mm[Hg] Not Available [facility] 3 02:57:24 Date Recorded Body mass index (BMI) Body height Heart rate Body temperature Body weight Systolic blood pressure Diastolic blood pressure Provider Name and Address Organization Details Last Updated DateTime 2 19.5 kg/m2 172.72 cm 60 /min 97.9 [degF] 13438.8 2 g 110 mm[Hg] 68 mm[Hg] Not Available [facility] 3 02:57:24 Date Recorded Body mass index (BMI) Body height Heart rate Body temperature Body weight Systolic blood pressure Diastolic blood pressure Provider Name and Address Organization Details Last Updated DateTime 1 21.6 kg/m2 172.72 cm 80 /min 97.6 [degF] 15411.1 2 g 120 mm[Hg] 80 mm[Hg] Not Available [facility] 3 02:57:24 Date Recorded Body height Body mass index (BMI) Body weight Body temperature Heart rate Oxygen saturation Oxygen saturation in Arterial blood by Pulse oximetry Systolic blood pressure Diastolic blood pressure Provider Name and Address Organization Details Last Updated DateTime 3 172.72 cm 19.5 kg/m2 15416.8 2 g 97.2 [degF] 70 /min 98 % 98 % 98 mm[Hg] 66 mm[Hg] Keya mark [facility] [employer] 3 15:37:32 Social History Question Answer Notes LastModified by Organizat ion Details LastModified Time Tobacco Smoking Status Former Smoker quit 2012 Aliyah johnston [employer] 02/16/2023 09:50:07 Do You Have An Advance Directive? No [id number] Information not available 12/13/2022 What Is Your Level Of Caffeine Consumption? Occasional [id number] Information not available 12/13/2022 How Much Tobacco Do You Chew? None [id number] Information not available 12/13/2022 In The 14 [...] Type Of Diet Are You Following? REGULAR [id number] Information not available 12/13/2022 Which Illicit Or Recreational Drugs Have You Used? None Information not available 02/16/2023 What Is The Highest Grade Or Level Of School You Have Completed Or The Highest Degree You Have Received? [id number] Information not available 02/16/2023 Have There Been Any Changes To Your Family Or Social Situation? No Information not available 02/16/2023 Are There Any Guns Present In Your Home? No Information not available 02/16/2023 Do You Use Insect Repellent Routinely? Yes Information not available 02/16/2023 Where [facility] You Live? [facility] Information not available 02/16/2023 Do You Have A Medical Power Of Coding Auditor? No Information not available 02/16/2023 What Was The Date Of Your Most Recent Tobacco Screening? 02/16/2023 [email or web address] Information not available 02/16/2023 Do You Have Any Pets? Yes Information not available 02/16/2023 What Is Your Relationship Status? Single [id number] Information not available 12/13/2022 Do You Have Smoke And Carbon Monoxide Detectors In Your Home? Yes Information not available 02/16/2023 Are You Passively Exposed To Smoke? No Information not available 02/16/2023 Are There Any Smokers In Your House? No Information not available 02/16/2023 How Much Tobacco Do You Smoke? No [id number] Information not available 12/13/2022 Do You Use Sunscreen Routinely? Yes Information not available 02/16/2023 Have You Recently Traveled Abroad? No Information not available 02/16/2023 Do You Have Any Dietary Restrictions? No Information not available 02/16/2023 Sex: Unknown Functional Status Question Answer Note LastModified by Organizat ion Details LastModified Time Do you or have you ever used any other forms of tobacco or nicotine? Yes Information not available 02/16/2023 What is your level of alcohol consumption? Moderate [id number] Information not available 12/13/2022 Do you or have you ever used smokeless tobacco? 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 Current user of electronic cigarettes Information not available 02/16/2023 What is your exercise level? None [id number] Information not available 12/13/2022 Mental Status Question Answer Note LastModified by Organization D etails LastModified Time Do you feel stressed (tense, restless, nervous, or anxious, or unable to sleep at night)? [id number] Information not available 02/16/2023 Family History Relationship Description Onset Age of this Age Resolved Age Notes LastModified by Organization Details LastModified Time Maternal Grandmother Malignant tumor of breast [id number] Not available 12/13/2022 02:51:38 Mother General health good [id number] Not available 12/13/2022 02:51:38 Father Cerebrovascu lar accident [id number] Not available 12/13/2022 02:51:38 Medical History Condition [...] ARTERY DISEASE (CAD) N ADDICTION CONCERNS N ENDOMETRIOSIS N Impotence N USE OF BLOOD THINNERS N SKIN [...] APNEA N CHICKENPOX N INFECTIOUS DISEASE N HEART ARRHYTHMIA N PROSTATE N INSOMNIA N HIGH CHOLESTEROL / HYPERLIPIDEMIA N HYPERTHYROIDISM N EYE PROBLEMS N NEUROLOGICAL PROBLEMS N EDEMA N CHRONIC PAIN SYNDROME N HYPOTHYROIDISM N CAROTID BLOCKAGE N CONSTIPATION N BACK / NECK PROBLEMS Y HAVE YOU BEEN HOSPITALIZED OR SEEN IN [facility] IN THE PAST YEAR ? N ATHEROSCLEROSIS N BREAST PROBLEMS N DIALYSIS N ECZEMA N OSTEOPOROSIS N ARTHRITIS N APPENDICITIS N DIABETES, TYPE N BAD TEETH N ENT N HEARTBURN / REFLUX N AUTISM SPECTRUM DISORDER (ASD) N HEPATITIS / LIVER DISEASE N PULMONARY DISEASE N GOUT N SLEEP DISORDER N ALZHEIMER'S DISEASE N Brain Problems N HERPES N DEMENTIA N HEADACHES/MIGRAINES N SEIZURES/EPILEPSY N VASCULAR DISEASE N PACEMAKER N Blood Disorder N DIZZINESS N HEART DISEASE/HEART PROBLEMS N KIDNEY DISEASE N MULTIPLE SCLEROSIS N CARDIAC ARRHYTHMIA N CANCER: SPECIFY N ANESTHESIA COMPLICATIONS N ATRIAL FIBRILLATION N [...] virus, quadrivalent, preservative 9 completed Not Available Critical [facility] hospital 12/13/2022 03:06:55 COVID-19 vaccine, vector-nr, [id number], PF, 0.5 mL 1 completed CHAPIS Barnes, [facility] 09/27/2023 15:38:10 Influenza, split virus, trivalent, preservative 4 completed Keya Dennison CMA null, [facility] 09/27/2023 15:38:10 Influenza, split virus, trivalent, preservative 3 completed Not Available [facility] access hospital 12/13/2022 03:06:55 Influenza, split virus, quadrivalent, PF 2 completed Not Available [facility] hospital 12/13/2022 03:06:55 Influenza, split virus, quadrivalent, PF 1 completed Not Available [facility] 12/13/2022 03:06:56 Influenza, split virus, quadrivalent, PF 0 completed Not Available Critical access hospital 12/13/2022 03:06:56 Influenza, MDCK, quadrivalent, PF 8 completed Not Available Critical access hospital 12/13/2022 03:06:56 Influenza, split virus, trivalent, PF 4 completed CHAPIS Barnes, [facility] [employer] [facility] 09/27/2023 15:38:10 Influenza, split virus, trivalent, preservative 3 completed CHAPIS Barnes, [facility] 09/27/2023 15:38:10 Past Encounters Encounter ID Performer Location Encounter Start Date Encounter Closed Date Diagnosis/Indication Diagnosis SNOMED-CT Code Diagnosis ICD10 Code Diagnosis Note [id number] Pola Chavarria MD [facility] [address] [address] 12/31/2020 00:00:00 12/31/2020 17:25:48 [id number] Pola Chavarria MD [facility] [address] [place] [address]., [address] [address] 04/29/2021 00:00:00 04/30/2021 09:48:54 [id number] Pola Chavarria MD [facility] [address] [facility] [address] 08/19/2021 00:00:00 08/28/2021 21:47:04 [id number] Pola Chavarria MD [facility] [address] [facility] [address] 02/17/2022 00:00:00 02/17/2022 23:05:50 [id number] Pola Chavarria MD [facility] Internal Med [facility] [address] [place] [address] [address] 08/18/2022 00:00:00 09/10/2022 20:09:13 [id number] Pola Chavarria MD [facility] [address] [place] [address] 02/16/2023 09:49:37 02/16/2023 10:57:03 Asthma 475628429 J45.909 Screening for cardiovascular system disease 907478683 Z13.6 Palpitations 09678934 R0 0.2 [id number] Pola Chavarria MD [facility] Lamar gustafson [address] [facility] [address] [facility] [place] [address] 09/27/2023 15:28:06 09/27/2023 16:40:26 Asthma 697678014 J45.909 Palpitations 70856173 R0 0.2 Rhinitis 39782198 J00 Health Concerns Section Related Observation LastModified by Organization Detai ls LastModified Time None Recorded Concern Status LastModified by Organization Details LastModified Time None Recorded Advance Directives Directive N: Payers Encounter Date Sequence Insurance Name Policy Number Policy Canales Covered Member ID Canales Member ID Guarantor Name 02/16/2023 1 [facility] (MEDICAID HMO) [id number] Aruna Senthil Villagran [id number] Aruna Villagran 09/27/2023 1 [facility] (MEDICAID HMO) [id number] Aruna Villagran [id number] Aruna Villagran Notes Date Note Type Note Provider Name and Address Organization Details Recorded Time 02/16/2023 text/html Asthma doing fin e and no rescue inhaler usePalpitations doing great tolerating the beta-blockerLow back pain stable Pola Chavarria MD [address], [address], [place], [address], [employer] 02/17/2023 22:25:59 09/27/2023 text/html Palpitations hav e been doing fine asthma has not been decompensated she is holding off on getting into more coronavirus shots and is not interested in RSVP but will consider fluid Pola Chavarria MD [address], [address], [place], [address], [employer] 09/27/2023 21:53:23 OBGyn Episode No OBEpisode recorded.
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
--- OUTSIDE RECORDS SUMMARY | 2025-03-18 14:13 | XMS_ITS | Encounter Summary ---
Author Organization [facility] Address [address] [facility] [address] [place] [address] Phone Care Team Providers Care Lubrication Equipment Servicer Name Role Phone Pola Chavarria MD Primary Care Provider [phone] Encounter Details Date Type Department Care Team (Latest Contact Info) Description 05/30/2021 Orders Only [facility] Soledad Burton RN Social History Tobacco Use Types Packs/Day Years Used Date Smoking Tobacco: Never Assessed Comments Unknown Sex and Gender Information Value Date Recorded Sex Assigned at Not on file Legal Sex Female 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
--- OUTSIDE RECORDS SUMMARY | 2025-03-18 14:13 | XMS_ITS | Encounter Summary ---
Author Organization [facility] Address [address] [facility] [address] [place] [address] Phone Care Team Providers Care Biofuels Production Technician Name Role Phone Pola Chavarria MD Primary Care Provider [phone] Encounter Details Date Type Department Care Team (Latest Contact Info) Description 11/05/2019 Orders Only [facility] Soledad Burton RN Social History Tobacco Use Types Packs/Day Years Used Date Smoking Tobacco: Never Assessed Comments Unknown Sex and Gender Information Value Date Recorded Sex Assigned at Not on file Legal 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
--- OUTSIDE RECORDS SUMMARY | 2025-03-18 14:13 | XMS_ITS | Clinical Summary ---
Author Organization [facility] Address [address] [place] [address] Care Team Providers Care Laborer Beam House Name Role Phone Pola Chavarria MD Primary Care Provider [phone] Allergies Active Allergy Reactions Criticality Noted Date Comments Codeine Itching,Rash Medium 10/28/2016 Medications acyclovir (ZOVIRAX) 400 mg tablet Take 1 tablet (400 mg total) by mouth 2 (two) times a day 02/09/2024 Active albuterol HFA (PROVENTIL HFA,VENTOLIN HFA,PROAIR HFA) 90 mcg/actuation inhaler Inhale 2 puffs every 4 (four) hours Active budesonide-formo teroL (SYMBICORT) 160-4.5 mcg/actuation inhaler Inhale 2 puffs 2 (two) times a day 09/28/2023 Active busPIRone (BUSPAR) 5 mg tablet Take 1 tablet (5 mg total) by mouth 2 (two) times a day 10/17/2024 Active metoprolol tartrate (LOPRESSOR) 25 mg immediate release tablet Take 1 tablet (25 mg total) by mouth 2 (two) times a day 180 tablet 3 11/14/2024 Active Active Problems No known active problems Social History Tobacco Use Types Packs/Day Years Used Date Smoking Tobacco: Every Day E-cigarettes Smokeless Tobacco: Never Tobacco Cessation:Ready to Q uit: Not Asked; Counseling Given: Not Answered Comments Unknown Sex and Gender Information Value Date Recorded Sex Assigned at Not on file Legal 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 Gender Identity Not on file Sexual Orientation Not on file Obstetrics History Last Filed Vital Signs Vital Sign Reading Time Taken Comments Blood Pressure 114/80 11/14/2024 8:34 AM CLOTH CUTTING MACHINE OPERATOR Pulse 96 11/14/2024 8:34 AM CLOTH CUTTING MACHINE OPERATOR Temperature - - Respiratory Rate 18 11/14/2024 8:34 AM CLOTH CUTTING MACHINE OPERATOR Oxygen Saturation 96% 11/14/2024 8:34 AM CLOTH CUTTING MACHINE OPERATOR Inhaled Oxygen Concentration - - Weight 62 kg (136 lb 9.6 oz) 11/14/2024 8:34 AM CLOTH CUTTING MACHINE OPERATOR Height 175.3 cm (5' 9) 11/14/2024 8:34 AM CLOTH CUTTING MACHINE OPERATOR Body Mass Index 20.17 11/14/2024 8:34 AM CLOTH CUTTING MACHINE OPERATOR Plan of Treatment Health Maintenance Due Date Last Done Comments Breast Cancer Screening-Mammogram 1978 Cervical Cancer Screening 1978 Colon Cancer Screening-Colonoscopy 1978 Depression Screening 1978 Hepatitis C Screening 1978 Hepatitis B Screening 1996 Regular Well Visit/Exam 18-64 1996 Pneumococcal vaccine <65 (1 of 2 - PCV) 1997 Covid-19 Vaccine (3 - season) 2024 09/07/2021, 12/10/2020 Influenza Vaccine (Season Ended) 2025 08/18/2022, 08/19/2021, 07/26/2020, Additional history exists DTaP/Tdap/Td Vaccine (2 - Td or Tdap) 06/20/2030 06/20/2020 HPV Vaccines Aged Out No longer eligi ble based on patient's age to complete this topic Insurance [facility] Care Teams Laborer Beam House Relationship Specialty Start Date End Date Pola Chavarria MD [address] [place] [address] PCP - General Internal Medicine 11/10/24
--- OUTSIDE RECORDS SUMMARY | 2025-03-18 14:13 | XMS_ITS | Clinical Summary ---
Author Organization [facility] Address [address] [facility] Attn: Epic Prelude [place]T [place] [address] Care Team Providers Care Fundraising Manager Name Role Phone Unavailable Primary Care Provider Unavailabl e Social History Tobacco Use Types Packs/Day Years Used Date Smoking Tobacco: Never Assessed Comments Unknown Sex and Gender Information Value Date Recorded Sex Assigned at Not on file Legal Sex Female 5:19 AM SPIRAL RUNNER Gender Identity Not on file Sexual Orientation Not on file Plan of Treatment Health Maintenance Due Date Last Done Comments DTAP/TDAP/TD VACCINES (1 - Tdap) 1997 HEPATITIS B VACCINES (1 of 3 - 19+ 3-dose series) 1997 HPV/Cotest (21-29) 1999 CERVICAL CANCER SCREENING 2008 HPV/Cotest (30-65) 2008 PAP SMEAR 2008 BREAST CANCER SCREENING 2018 COLORECTAL SCREENING 2023 Colorectal Cancer Screening 2023 FIT-DNA Q 3 years 2023 FIT/FOBT Q 1 year 2023 Flex Sig/CT Colonography Q 5 years 2023 INFLUENZA VACCINE (#1) 2024 HPV VACCINES Aged Out No longer eligi ble based on patient's age to complete this topic
--- OUTSIDE RECORDS SUMMARY | 2025-03-18 14:13 | XMS_ITS | Encounter Summary ---
Author Organization [facility] Address 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
--- OUTSIDE RECORDS SUMMARY | 2025-03-18 14:13 | XMS_ITS | Encounter Summary ---
Author Organization [facility] Address [address] [facility] [address] [place] [address] Phone Care Team Providers Care I O Psychologist Name Role Phone Pola Chavarria MD Primary Care Provider [phone] Encounter Details Date Type Department Care Team (Latest Contact Info) Description 09/22/2024 Orders Only [facility] Soledad Burton RN Social History Tobacco Use Types Packs/Day Years Used Date Smoking Tobacco: Never Assessed Comments Unknown Sex and Gender Information Value Date Recorded Sex Assigned at Not on file Legal Sex Female 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
--- OUTSIDE RECORDS SUMMARY | 2025-03-18 14:13 | XMS_ITS | Clinical Summary ---
Author Organization [facility] Address [address] [facility] [place] [address] Care Team Providers Care Industrial Welder Name Role Phone Pola Chavarria MD Primary Care Provider [phone] Source Comments [facility] Affiliates and Associated Physician Practices is amultiple site organization consisting of ambulatory clinics and hospital sitesin [place], [place], [place] and [place]. This disclosure is being madepursuant to the Care Everywhere program and may not contain all information available regarding this patient. Last updated 18.[facility] Allergies Active Allergy Reactions Criticality Noted Date Comments Codeine 10/28/2016 Codeine Itching 10/28/2016 Medications * Be aware that medications may not be up to date on this document. Alwaysverify current medications with the patient. levonorgestrel (MIRENA, 52 MG,) 20 MCG/24HR IUD 1 Device by Intrauterine route as directed Active budesonide-for moterol (SYMBICORT) 160-4.5 MCG/ACT inhaler Inhale 2 (two) [...] (4000 mg) / 24 hours. Active Multiple Vitamins-[place] als (HAIR SKIN AND NAILS FORMULA PO) Take 1 tablet by mouth once daily Active acyclovir (Zovirax) 400 MG tablet 2 times daily 4 Active ondansetron, disintegrating , (Zofran ODT) 4 MG tablet Take 1 (one) tablet by mouth every 6 hours as needed for Nausea/Vomiting Allow tablet to dissolve on the tongue 20 tablet 4 Active HYDROcodone-ac etaminophen ([place]) 5-325 MG tabletIndicati ons:Injury of head, initial encounter,Cont usion of sacrum, initial encounter Take 1 (one) tablet by mouth every 4 hours as needed for Pain 10 tablet 4 Active Active Problems Problem Noted Date Diagnosed [...] sinusitis 07/13/2020 07/13/2020 Rhinitis 07/13/2020 07/13/2020 Immunizations Immunization Administration Dates Next Due INFLUENZA VACCINE, TRIV. 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 Gender Identity Not on file Sexual Orientation [...] 3:18 PM CDT Height 175.3 cm (5' 9) 02/09/2024 3:18 PM CDT Body Mass Index [...] VACCINE (3 - season) 2024 09/07/2021, 12/17/2020 DEPRESSION SCREENING 10/15/2024 INFLUENZA VACCINE (Season Ended) 2025 08/18/2022, 08/19/2021, 07/26/2020, Additional history exists ZOSTER VACCINE (1 of 2) 2028 HIB VACCINE Aged Out No longer eligi ble based on patient's age to complete this topic HPV VACCINE Aged Out No longer eligi ble based on patient's age to complete this topic MENINGOCOCCAL (Group B) VACCINE SHARED DECISION-MAKING Aged Out No longer eligible based on patient's age to complete this topic MENINGOCOCCAL GROUPS A/C/Y/W VACCINE Aged Out No longer eligible based on patient's age to complete this topic [place] [address] [facility] Care Address: [address] [address] TP [employer] Liability Percolate [facility] Care Teams Industrial Welder Relationship Specialty Start Date End Date Pola Chavarria MD PCP - General Internal Medicine 10/28/16
--- OUTSIDE RECORDS SUMMARY | 2025-03-18 14:13 | XMS_ITS | Referral Summary ---
Author Organization [facility] Address [id number] [place] [id number] Care Team Providers Care Terminal Superintendent Name Role Phone Pola Chavarria MD Primary Care Provider [phone] Allergies Active Allergy Reactions Criticality Noted Date [...] on file Legal Sex Female 3:30 AM [employer]MAN [employer] Gender Identity Not on file Sexual Orientation Not on file Last Filed Vital Signs Vital Sign Reading Time Taken Comments Blood Pressure 114/80 11/14/2024 8:34 AM P[employer]MAN CONDUCTOR Pulse 96 11/14/2024 8:34 AM PULLMAN CONDUCTOR Temperature - - Respiratory Rate 18 11/14/2024 8:34 AM PULLMAN CONDUCTOR Oxygen Saturation 96% 11/14/2024 8:34 AM PULLMAN CONDUCTOR Inhaled Oxygen Concentration - - Weight 62 kg (136 lb 9.6 oz) 11/14/2024 8:34 AM PULLMAN CONDUCTOR Height 175.3 cm (5' 9) 11/14/2024 8:34 AM PULLMAN CONDUCTOR Body Mass Index 20.17 11/14/2024 8:34 AM PULLMAN CONDUCTOR Plan of Treatment Not on file Insurance [facility] Care Teams Terminal Superintendent Relationship Specialty Start Date End Date Pola Chavarria MD [address] [place] [address] PCP - General Internal Medicine 11/10/24
== END 2025-03-18 14:02 | disposition home or self-care (01) ==
LOC: ANHIMG 14:02
PROVIDERS: PCP Internal Medicine; Visit Provider Nurse Practitioner Women's Health
DX: Z12.31 Encounter for screening mammogram for malignant neoplasm of breast (principal)
CPT/HCPCS: 77063; 77067